=== PATIENT | female | born 1940 | race Caucasian/White ===

== ENCOUNTER 2020-12-26 08:43 | Emergency (ER) | payer MEDICARE, OTHER, SELFPAY ==
[2020-12-26 08:50] VITALS: BP 195/91; PULSE 74; RESP 18; TEMP 36.7; O2SAT 96; BMI 33.3
[2020-12-26 09:03] VITALS: BP 195/91; PULSE 66; RESP 18; TEMP 37.1; O2SAT 96
--- NOTE | 2020-12-26 09:10 | ED_ITS ---
HPI - Allergic Reaction General: Chief complaint: Allergic Reaction Stated complaint: SWELLING TO FACE Time Seen by Provider: 12/26/20 08:52 History of Present Illness: HPI narrative: Patient is an 80-year-old female comes to the ED with facial swelling. Patient says she woke up this morning and had swelling to her upper lip and left maxillary region. Patient says it is a little sore over left maxillary region of face where swelling that. She denies any bug bite, change medications, change in soaps or detergents. Endorses having some left upper dental pain around first molar that has been going on for over a week. Denies any fever, chills, shortness of breath, nausea/vomiting, abdominal pain, bladder or bowel symptoms. Associated symptoms: Deny abdominal pain, nausea or vomiting Review of Systems Const: Denies: fever(s), chills or fatigue Eyes: Denies: change in vision or eye discomfort ENMT: Reports: other (maxillary left facial swelling and pain.); Denies: throat pain, odynophagia, nasal discharge or nasal congestion Card: Denies: chest pain, palpitations, edema, swelling of feet/ankles, dyspnea on exertion or orthopnea Resp: Denies: dyspnea, productive cough or non-productive cough GI: Denies: abdominal pain, nausea, vomiting, diarrhea, constipation or hematochezia : Denies: flank pain, dysuria or hematuria Musc: Denies: neck pain, back pain or extremity swelling Skin/Breast: Reports: skin swelling (Left maxillary and upper lip mild swelling.); Denies: rash or new lesions Neuro: Denies: headache(s), numbness in extremities or weakness in extremities Physical Exam Const: COMMON NORMALS: no acute distress, patient oriented x3 and alert GENERAL APPEARANCE: cooperative and comfortable HENMT: COMMON NORMALS: normocephalic HEAD & SCALP: normocephalic FACE & SINUS: edema on the left maxilla (mild) and upper lip (mild) and Facial tenderness on exam of face and sinuses on the left maxilla MOUTH: Normal oral and palatal mucosa present TEETH & GINGIVA: Yes abnormal tooth and associated gingiva upper left first molar tender and with associated gingival edema and Yes caries (Upper left first molar has dental caries.) THROAT: posterior oropharynx normal and uvula midline Neck/C-Spine: COMMON NORMALS: supple GENERAL: Yes normal visual inspection Resp: COMMON NORMALS: normal respiratory effort, No retractions, No use of accessory muscles and clear to auscultation bilaterally AUSCULTATION: clear to auscultation bilaterally Cardio: COMMON NORMALS: regular rate, regular rhythm, S1 normal heart sound present, S2 normal heart sound present, No gallops present (Cardio), No clicks present (Cardio), No murmurs present (Cardio) and Peripheral pulses 2+ throughout RATE: regular rate RHYTHM: regular rhythm HEART SOUNDS: S1 normal heart sound present and S2 normal heart sound present PERIPHERAL PULSE S: Peripheral pulses 2+ throughout GI: COMMON NORMALS: Normal to inspection, nondistended, normoactive bowel sounds present, Soft to palpation, non-tender and no masses PALPATION: Yes Soft to palpation : COMMON NORMALS: Yes no CVA tenderness BLADDER/KIDNEY EXAM: Yes no CVA tenderness Back/Pelvis: COMMON NORMALS: no CVA tenderness Extremity: COMMON NORMALS: normal to inspection Neuro: COMMON NORMALS: patient oriented x3 and moves all extremities SENSORIUM/ORIENTATION: Yes alert Skin: GENERAL SKIN EXAM: dry skin Course Vital Signs: Vital signs: Vital Signs Temperature 98.7 F 12/26/20 09:03 Pulse Rate 67 12/26/20 09:31 Respiratory Rate 18 12/26/20 09:31 Blood Pressure 195/91 12/26/20 09:31 Pulse Oximetry 95 12/26/20 09:31 MDM - Allergic Reaction MDM Narrative: Medical decision making narrative: Patient is an 80-year-old female comes to the ED with left-sided facial swelling. Patient did state that she has been having some dental pain in the upper left molar region for the past week plus. Upon exam patient appears nontoxic and in no acute distress or pain. She has some left maxillary tenderness. She does have some dental decay on upper left first molar with associated gingival edema. Patient's dental caries and associated gingival edema are likely the cause of the facial swelling. Patient diagnosed with left facial swelling and pain due to dental caries. She was discharged home with a prescription for Medrol Dosepak for the swelling and clindamycin. She was told to contact dentist and get an appointment set up for further evaluation. Return ED precautions given. Patient understood agree with plan. Discharge Plan Discharge Patient Disposition: Home Clinical Impression: Pain due to dental caries, Left facial swelling Condition: Stable Prescriptions: New clindamycin HCl 150 mg capsule 300 mg PO QID 7 Days Qty: 56 RF: 0 Medrol (Quinten) 4 mg tablets,dose pack See Rx Instructions .ROUTE .COMPLEX Qty: 21 RF: 0 Discharge Orders: Discharge ED (Routine); Ordered 12/26/20 Ordered By: Akin Stokes Referrals: Kristi Steele MD [Primary Care Provider] - Discharge Diet: Regular Discharge Activity: Resume usual activity Patient Instructions: Dental Caries (ED) Activity Restrictions/Additional Instructions: Contact dentist office to set up an appointment for reevaluation. Take medications as prescribed. Return to the ER or your medical provider if condition worsens. Please read and understand discharge instructions. Thank you for choosing [facility] for your healthcare needs today. Please realize this is an emergency room and that we are providing you with a medical screening exam and this may not be complete and all inclusive of all the testing and or work up that you may need to determine your ailment or severity of your illness. It is very important that you follow up as instructed or that you return to the Emergency Department should you have concerns or if your condition changes or worsens in any way. Coding Level of Care Code ED Geodetic Surveyor Technologist for Jassong Fwd Exam Comprehensive
[2020-12-26 09:31] VITALS: BP 195/91; PULSE 67; RESP 18; O2SAT 95
== END 2020-12-26 09:36 | disposition home or self-care (01) ==
LOC: ER 09:31
PROVIDERS: Emergency Provider Physician Assistant; PCP Specialist
DX: K02.9 Dental caries, unspecified (principal); R60.9 Edema, unspecified
CPT/HCPCS: 99282

== ENCOUNTER → 2021-06-14 10:04 | Outpatient (BNVA) | payer MEDICARE, OTHER, SELFPAY | PROVIDERS: PCP Specialist; Visit Provider Internal Medicine Cardiovascular Disease | DX: R01.1 Cardiac murmur, unspecified (principal); R60.9 Edema, unspecified | CPT/HCPCS: 80048; 83735; 83880 ==

== ENCOUNTER → 2021-07-06 08:32 | Outpatient (BNVA) | payer MEDICARE, OTHER, SELFPAY | PROVIDERS: PCP Specialist; Visit Provider Internal Medicine Cardiovascular Disease | DX: I45.10 Unspecified right bundle-branch block (principal); I50.9 Heart failure, unspecified; M79.89 Other specified soft tissue disorders; I10 Essential (primary) hypertension | CPT/HCPCS: 80048; 83735; 83880 ==

== ENCOUNTER 2021-12-13 13:15 | Outpatient (CLI) | payer MEDICARE, OTHER, SELFPAY ==
[2021-12-13 14:00] LABS: Basophils # 0.1 10^3/uL (0.0-0.1); Basophils % 1.2 %; Eosinophils # 0.2 10^3/uL (0.0-0.8); Eosinophils % 2.8 %; Hematocrit 46.1 % (37.0-47.0); Hemoglobin 15.1 g/dL (11.5-15.3); Lymphocytes # 1.8 10^3/uL (0.8-4.8); Lymphocytes % 30.5 %; Mean Corpuscular HGB Conc 32.8 g/dL (30.0-36.0); Mean Corpuscular Hemoglobin 28.4 pg (28.0-34.0); Mean Corpuscular Volume 86.8 fl (81-99); Monocytes # 0.4 10^3/uL (0.2-0.9); Neutrophils # 3.51 10^3/uL (1.8-7.7); Neutrophils % 58.2 %; Nucleated Red Blood Cells % 0 %; Platelet Count 271 10^3/cmm (130-400); Red Blood Count 5.31 10^6/uL (4.1-5.3); Red Cell Distribution Width 13.7 % (12.1-15.1)
[2021-12-13 14:38] LABS: Alanine Aminotransferase 11 U/L (0-33); Albumin Level 4.2 g/dL (3.5-5.2); Alkaline Phosphatase 87 IU/L (35-105); Aspartate Amino Transferase 18 U/L (0-32); Blood Urea Nitrogen 14 mg/dL (8-23); Calcium 8.9 mg/dL (8.5-10.5); Carbon Dioxide 25 mmol/L (22-29); Chloride 104 mmol/L (98-107); Globulin 3.7 g/dL (1.3-4.6); Glucose 119 mg/dL (65-115); Magnesium 2.2 mg/dL (1.7-2.3); NT Pro B Type Natriuretic Pept 1576 pg/mL (0-450); Osmolality Calculated 294 mOsm/kg (285-295); Sodium 141 mmol/L (136-145); Total Bilirubin 0.7 mg/dL (0.15-1.2); Total Protein 7.9 g/dL (6.6-8.7)
== END 2021-12-13 13:16 | disposition home or self-care (01) ==
PROVIDERS: PCP Specialist; Visit Provider Internal Medicine Cardiovascular Disease
DX: I10 Essential (primary) hypertension (principal); I50.9 Heart failure, unspecified; M79.89 Other specified soft tissue disorders
CPT/HCPCS: 80053; 83735; 83880; 85025

== ENCOUNTER 2022-01-25 10:45 | Inpatient (IN) | payer MEDICARE, OTHER, SELFPAY ==
[2022-01-25] VITALS (42 sets, daily range): BP systolic 107–169; BP diastolic 59–86; PULSE 70–118; RESP 14–28; TEMP 36.6–37.1; O2SAT 93–96
[2022-01-25 12:53] LABS: Glucose Point of Care 118 mg/dL (70-110)
--- NOTE | 2022-01-25 13:01 | CTR_ITS ---
PROCEDURE INFORMATION: Exam: CT Abdomen And Pelvis Without Contrast Exam date and time: 01/25/2022 2:40 PM Age: 81 years old Clinical indication: Fever and nausea; Abdominal pain; Localized; Lower; Patient HX: History of melanoma; Additional info: Upper abd pain and recurrent n/v for serveral days TECHNIQUE: Imaging protocol: Computed tomography of the abdomen and pelvis without contrast. Radiation optimization: All CT scans at this facility use at least one of these dose optimization techniques: automated exposure control; mA and/or kV adjustment per patient size (includes targeted exams where dose is matched to clinical indication); or iterative reconstruction. COMPARISON: OT US abdomen limited 71625 03/15/2016 9:41 AM RADIATION DOSE METRICS: Total DLP (mGy-cm): 1243.8 FINDINGS: Liver: Normal. No evidence of mass. Gallbladder and bile ducts: Normal. No calcified stones. No ductal dilation. Pancreas: Normal. No ductal dilation. Spleen: Normal. No splenomegaly. Adrenal glands: Normal. No mass. Kidneys and ureters: Cortical scarring along the posterior interpolar cortex of the left kidney. No hydronephrosis. Stomach and bowel: Scattered colonic diverticula without findings of acute diverticulitis. No obstruction. No mucosal thickening. Appendix: No evidence of appendicitis. Intraperitoneal space: Unremarkable. No free air. No significant fluid collection. Vasculature: Unremarkable. No abdominal aortic aneurysm. Lymph nodes: Unremarkable. No enlarged lymph nodes. Urinary bladder: Inferior portion of the bladder is located below the pubococcygeal line. Otherwise, unremarkable. Reproductive: Hysterectomy. Bones/joints: No acute fracture. No aggressive osseous lesions. Soft tissues: Unremarkable. CT/CT abdomen pelvis wo con [id number] IMPRESSION: 1. No acute findings. No evidence of metastatic disease within the abdomen/pelvis. 2. Hysterectomy with imaging findings consistent with pelvic floor laxity and corresponding cystocele.
--- NOTE | 2022-01-25 13:01 | XR_ITS ---
WS: [id number] Portable AP upright chest, 01/25/2022 Clinical Data: ams Comparison: PA and lateral chest, 05/09/2021. Findings: No nodules, masses or effusions are seen. The heart is normal. The pulmonary vascularity is not increased. No pneumonia or pneumothorax is seen. The aortic arch and descending thoracic aorta s how mild tortuosity. Monitor leads are on the chest wall. XR/XR chest 1V portable [id number] Impression: Atherosclerosis.
--- NOTE | 2022-01-25 13:04 | ECG_ITS ---
[facility] Test Date: 2022-01-25 Pat Name: Tiffanie Rosas Department: Room: Gender: Female Banking Pin Adjuster: : 1940 Requested By: Chun Agarwal Order Number: [id number] Ramos MD: Mack Bradley M.D. Measurements Intervals [place] Rate: 72 P: 11 AR: 204 QRS: 90 QRSD: 145 T: 67 QT: 376 QTc: 413 Interpretive Statements SINUS RHYTHM RIGHT BUNDLE BRANCH BLOCK [120+ ms QRS DURATION, UPRIGHT V1, 40+ ms S IN I/aVL/V4/V5/V6] No previous ECG available for comparison Electronically Signed On 01-25-2022 17:54:58 CDT by Mack Bradley M.D. [id number]
--- NOTE | 2022-01-25 13:05 | W.ED.AMS ---
HPI - Altered Mental Status General: Chief Complaint: Altered Mental Status Stated Complaint: Vomiting Time Seen by Provider: 01/25/22 12:34 Source: patient and family (son) Mode of arrival: ambulatory Limitations: no limitations History of Present Illness: Patient's brought to the emergency department by her son. History is provided both by the son as well as the patient. He relates that she has been sick since approximately Sunday. He states that she has had repetitive vomiting when any attempt to eat or drink. He states that they both live on the same property but not in the same dwelling. States that she lives alone but has not been exposed to any infectious disease that he is aware. He relates his symptoms beginning after they ate at [employer]. She ate a chicken strip meal with fries and he ate a hamburger. She became sick afterwards. She denies any abdominal pain. She denies any other specific complaint at this time. Son does report that she has been less active and less interactive than usual. He is unaware of her having any fevers, falls or traumatic injuries etc. She does have a history of cardiovascular disease but she has denied any chest pain to us today and son reports that she is denied any chest pain symptoms to him. She is not any diarrhea. She is not any abdominal surgeries. She apparently was on Diflucan as well as topical antifungals and a course of Bactrim approximately a week ago for a topical skin fungal infection. complaint: weakness Timing confirmed by: family member Review of Systems Const: Denies: fever(s), chills or body aches Eyes: Denies: change in vision ENMT: Denies: throat pain, odynophagia or nasal congestion Card: Denies: chest pain, palpitations, irregular heart rhythm or syncope Resp: Denies: dyspnea, productive cough or non-productive cough GI: Reports: nausea and vomiting; Denies: abdominal pain, hematemesis, diarrhea or change in stool character : Denies: flank pain, difficulty voiding, dysuria or urinary frequency Musc: Reports: extremity swelling (Chronic); Denies: neck pain, back pain or extremity pain Skin/Breast: Reports: rash (Under breasts) Neuro: Denies: headache(s), numbness in extremities, weakness in extremities or Slurred speech present Endo: Denies: polyuria, polydipsia or tired all the time All/Imm: Denies: urticaria PFSH ED PFSH: Medical History CHF (congestive heart failure), NYHA class III Hypertension Leg swelling RBBB Social History Smoking and tobacco status: former smoker Physical Exam Narrative: The patient's alert and answers questions in a goal-directed fashion. She is cooperative. Appears stated age. Const: COMMON NORMALS: no acute distress and alert GENERAL APPEARANCE: comfortable NUTRITIONAL APPEARANCE: overweight ORIENTATION/CONSCIOUSNESS: Yes awake and Yes oriented to person HENMT: COMMON NORMALS: normocephalic, atraumatic, Normal nasal mucous membranes and turbinates present and moist oral mucous membranes HEAD & SCALP: normocephalic and atraumatic FACE & SINUS: normal facial exam NOSE: Normal nasal mucous membranes and turbinates present Eye: COMMON NORMALS: Equal, round and reactive pupils present, EOMs intact bilaterally and conjunctivae normal CONJUNCTIVA: Yes conjunctivae normal PUPIL: Yes Equal, round and reactive pupils present Neck/C-Spine: COMMON NORMALS: full ROM, no lymphadenopathy, supple and No carotid bruits Chest: COMMONS NORMALS: normal inspection of the chest and normal palpation of entire chest wall Resp: COMMON NORMALS: normal respiratory effort, No retractions, No use of accessory muscles and clear to auscultation bilaterally EFFORT & INSPECTION: Yes able to speak in complete sentences AUSCULTATION: clear to auscultation bilaterally Cardio: COMMON NORMALS: regular rate, regular rhythm, No murmurs present (Cardio) and Peripheral pulses 2+ throughout RATE: regular rate RHYTHM: regular rhythm PERIPHERAL PULSES: Peripheral pulses 2+ throughout GI: COMMON NORMALS: Normal to inspection, nondistended, normoactive bowel sounds present, Soft to palpation, no masses and no bruits PALPATION: Yes Soft to palpation, Yes Tenderness to palpation present (GI), No Guarding due to palpation present (GI) and No Rigid due to palpation Back/Pelvis: COMMON NORMALS: thoracic and lumbar spine normal to inspection, no thoracic nor lumbar tenderness and thoraco-lumbar ROM normal Extremity: COMMON NORMALS: normal to inspection, capillary refill normal, no joint enlargement and no calf tenderness NARRATIVE EXTREMITY EXAM: Bilateral pretibial edema 1+. Neuro: COMMON NORMALS: moves all extremities, no focal motor deficits, no sensory deficits noted and deep tendon reflexes 2+ bilaterally SENSORIUM/ORIENTATION: Yes alert and Yes oriented to person CRANIAL NERVES: Yes CN normal except as noted SPEECH: speech normal Psych: COMMON NORMALS: mental status grossly normal, Normal thought process present and cooperative THOUGHT PROCESS: Normal thought process present Course Reevaluation(s): Reevaluation #1: Patient does not display any focal findings on her neurologic examination to suggest central nervous system involvement least initially. We will going proceed with work-up to ensure no other ongoing medical conditions and reevaluate at that time. Time: 13:12 Consultations: Consultation #1: Discussed with Dr. Boateng who agreed to accept the patient for admission and additional evaluation and treatment. Time: 14:42 Vital Signs: Vital signs: Vital Signs Pulse Rate 73 01/25/22 14:10 Respiratory Rate 17 01/25/22 14:00 Pulse Oximetry 94 01/25/22 11:12 MDM - Altered Mental Status Medical Decision Making This patient presented with a history of repetitive vomiting over the past 5 to 7 days. Initial screening laboratories revealed her to have a significant elevation in her creatinine from 5.8 from baseline of 1.0 by review of prior records. She also has a mild hyperkalemia consistent with ELIANA without any acute EKG changes. She will require hydration, monitoring of fluid status, and additional imaging to ensure that there is no other intra-abdominal pathology at this time. Medical Records I reviewed the patient's medical records. Lab Data I reviewed the patient's lab results. : 01/25/22 12:50 01/25/22 12:50 Radiology Impressions Chest X-Ray 01/25/22 13:01 Impression: Atherosclerosis. Laboratory Results WBC 8.9 10^3/uL (4.0-10.0) 01/25/22 12:50 RBC 5.42 10^6/uL (4.1-5.3) H 01/25/22 12:50 Hgb 15.3 g/dL (11.5-15.3) 01/25/22 12:50 Hct 44.9 % (37.0-47.0) 01/25/22 12:50 MCV 82.8 fl (81-99) 01/25/22 12:50 MCH 28.2 pg (28.0-34.0) 01/25/22 12:50 MCHC 34.1 g/dL (30.0-36.0) 01/25/22 12:50 RDW 14.3 % (12.1-15.1) 01/25/22 12:50 Plt Count 264 10^3/cmm (130-400) 01/25/22 12:50 MPV 9.5 fL (7.4-10.4) 01/25/22 12:50 Neut % (Auto) 81.6 % 01/25/22 12:50 Lymph % (Auto) 4.6 % 01/25/22 12:50 [place] % (Auto) 8.3 % 01/25/22 12:50 Eos % (Auto) 3.6 % 01/25/22 12:50 Baso % (Auto) 0.2 % 01/25/22 12:50 Neut # (Auto) 7.25 10^3/uL (1.8-7.7) 01/25/22 12:50 Lymph # (Auto) 0.4 10^3/uL (0.8-4.8) L 01/25/22 12:50 [place] # (Auto) 0.7 10^3/uL (0.2-0.9) 01/25/22 12:50 Eos # (Auto) 0.3 10^3/uL (0.0-0.8) 01/25/22 12:50 Baso # (Auto) 0.0 10^3/uL (0.0-0.1) 01/25/22 12:50 Nucleated RBC % (auto) 0 % 01/25/22 12:50 Nucleated RBCs # 0.0 /100WBC 01/25/22 12:50 Sodium 126 mmol/L (136-145) L 01/25/22 12:50 Potassium 6.4 mmol/L (3.5-5.1) H 01/25/22 12:50 Chloride 89 mmol/L (98-107) L 01/25/22 12:50 Carbon Dioxide 21 mmol/L (22-29) L 01/25/22 12:50 Anion Gap 22.4 (5-19) H 01/25/22 12:50 BUN 67 mg/dL (8-23) H 01/25/22 12:50 Creatinine 5.8 mg/dL (0.5-0.9) H* 01/25/22 12:50 GFR Calculation Not Reportable 01/25/22 12:50 Glucose 117 mg/dL (65-115) H 01/25/22 12:50 POC Glucose 118 mg/dL (70-110) H 01/25/22 12:47 Calculated Osmolality 282 mOsm/kg (285-295) L 01/25/22 12:50 Calcium 9.2 mg/dL (8.5-10.5) 01/25/22 12:50 Total Bilirubin 0.4 mg/dL (0.15-1.2) 01/25/22 12:50 AST 13 U/L (0-32) 01/25/22 12:50 ALT 8 U/L (0-33) 01/25/22 12:50 Alkaline Phosphatase 102 IU/L (35-105) 01/25/22 12:50 Total Protein 8.1 g/dL (6.6-8.7) 01/25/22 12:50 Albumin 4.0 g/dL (3.5-5.2) 01/25/22 12:50 Globulin 4.1 g/dL (1.3-4.6) 01/25/22 12:50 Lipase 68 U/L (13-60) H 01/25/22 12:50 Urine Color Yellow (Yellow) 01/25/22 14:00 Urine Appearance Clear (CLEAR) 01/25/22 14:00 Urine pH 5 (5-7) 01/25/22 14:00 Ur Specific [place] 1.005 (1.005-1.030) 01/25/22 14:00 Urine Protein Neg (Negative) 01/25/22 14:00 Urine Glucose (UA) Norm (Normal) 01/25/22 14:00 Urine Ketones Negative (Negative) 01/25/22 14:00 Urine Blood Neg (Negative) 01/25/22 14:00 Urine Nitrate Negative (Negative) 01/25/22 14:00 Urine Bilirubin Neg (Negative) 01/25/22 14:00 Urine Urobilinogen Norm mg/dL (Negative) 01/25/22 14:00 Ur Leukocyte Esterase Negative (Negative) 01/25/22 14:00 EKG Data EKG 1: I personally reviewed and interpreted this EKG as follows: EKG interpretation time: 13:38 Interpretation: Resting EKG reveals a ventricular rate of 72 bpm. She has a normal CO interval as well as a normal QRS duration. QTc is also normal. She has an extreme leftward axis suggestive of a right bundle branch block. She has no acute ST-T wave changes at this time. Discharge Plan Discharge Patient Disposition: Admitted As Inpatient Clinical Impression: Acute kidney injury, Hyperkalemia Condition: Stable Coding Level of Care Code ED Leather Stripping Machine Operator for Candis Parra Exam Comprehensive
[2022-01-25 13:18] LABS: Basophils % 0.2 %; Eosinophils # 0.3 10^3/uL (0.0-0.8); Eosinophils % 3.6 %; Hematocrit 44.9 % (37.0-47.0); Hemoglobin 15.3 g/dL (11.5-15.3); Lymphocytes # 0.4 10^3/uL (0.8-4.8); Lymphocytes % 4.6 %; Mean Corpuscular HGB Conc 34.1 g/dL (30.0-36.0); Mean Corpuscular Hemoglobin 28.2 pg (28.0-34.0); Mean Corpuscular Volume 82.8 fl (81-99); Mean Platelet Volume 9.5 fL (7.4-10.4); Monocytes # 0.7 10^3/uL (0.2-0.9); Monocytes % 8.3 %; Neutrophils # 7.25 10^3/uL (1.8-7.7); Neutrophils % 81.6 %; Nucleated Red Blood Cells % 0 %; Platelet Count 264 10^3/cmm (130-400); Red Blood Count 5.42 10^6/uL (4.1-5.3); Red Cell Distribution Width 14.3 % (12.1-15.1); White Blood Count 8.9 10^3/uL (4.0-10.0)
[2022-01-25 13:33] LABS: Alanine Aminotransferase 8 U/L (0-33); Alkaline Phosphatase 102 IU/L (35-105); Anion Gap 22.4 (5-19); Aspartate Amino Transferase 13 U/L (0-32); Blood Urea Nitrogen 67 mg/dL (8-23); Calcium 9.2 mg/dL (8.5-10.5); Carbon Dioxide 21 mmol/L (22-29); Chloride 89 mmol/L (98-107); Globulin 4.1 g/dL (1.3-4.6); Glucose 117 mg/dL (65-115); Lipase 68 U/L (13-60); Osmolality Calculated 282 mOsm/kg (285-295); Potassium 6.4 mmol/L (3.5-5.1); Sodium 126 mmol/L (136-145); Total Bilirubin 0.4 mg/dL (0.15-1.2); Total Protein 8.1 g/dL (6.6-8.7)
[2022-01-25] MEDS: sodium chloride 0.9% 500 ML IV (13:38)
[2022-01-25 14:36] LABS: Add Urine Microscopic? NO; Charge for UA Resulting for Rev
[2022-01-25 14:46] LABS: Bilirubin Urine Neg (Negative); Blood Urine Neg (Negative); Glucose Urine UA Norm (Normal); Ketones Urine Negative (Negative); Leukocyte Esterase Urine Negative (Negative); Nitrate Urine Negative (Negative); Protein Urine Neg (Negative); Specific Gravity, Urine 1.005 (1.005-1.030); Urine Appearance Clear (CLEAR); Urine Color Yellow (Yellow); Urobilinogen Urine Norm (Negative); pH Urine 5 (5-7)
[2022-01-25] MEDS: calcium gluconate 0.9% NaCL 1 GM/50 ML PREMIX IV (14:49)
--- NOTE | 2022-01-25 15:00 | PC.NURSE ---
Pt was brought from ER by this nurse and continued her care. She is alert and orientated to self only and attempting to pull lines and tubes. Family is at bedside. Son took pants, shoes, socks and uderwear home.
--- NOTE | 2022-01-25 15:16 | PM.HP ---
Providers/Chief Complaint Primary Care Provider: Kristi Steele MD Chief Complaint: Vomiting History of Present Illness Tiffanie Rosas is a 81 year old female WITH pmh of HTN , CHF, came in with c/o not felling well since Sunday she is complaining of recurrent vomiting whenever she tries to eat or drink anything,symptoms started after she ate chicken strip meal with fries at [employer].She has also been lethargic as well as less responsive lately.She denies any fever,cough,chest pain,sob,abdominal,urinary discomfort, sick contact.Patient has h /o recent use of Bactrim for topical skin fungal infection. Pertinent Imaging studies done in ER : Xray chest : No acute findings C.T Abdomen and pelvis without contrast:No hydronephrosis. EKG: SR,RBBB Pertinent Labs : WBC : 8.9 H&H : 15/44 , PLT l 264 , Na: 126 , k: 6.4 ,BUN/SCR : 67/5.8 , HCO3: 21 A, RBS:118 , UA: Clean Review of Systems General: Reports: 10 or more systems reviewed and unremarkable except in HPI and below Const: Denies: fever(s), chills, body aches, change in appetite or diaphoresis Card: Denies: palpitations, edema, swelling of feet/ankles, dyspnea on exertion, orthopnea or leg pain with exertion Resp: Denies: dyspnea, productive cough, wheezing or pain on inspiration GI: Denies: abdominal pain, nausea, vomiting, diarrhea or constipation : Denies: flank pain Musc: Denies: back pain, extremity pain or extremity swelling Neuro: Denies: headache(s), difficulty walking or confusion Medications/Allergies Home Medications Medication Instructions Recorded Confirmed Last Taken Type aspirin 325 mg tablet 325 mg PO DAILY PRN 09/12/21 01/25/22 Unknown History metoprolol tartrate 25 mg tablet 25 mg PO BID #60 tab 09/12/21 01/25/22 Unknown Rx furosemide 80 mg tablet 80 mg PO DAILY #90 tab 12/14/21 01/25/22 Unknown Rx lisinopril 40 mg tablet 40 mg PO DAILY #90 tab 12/14/21 01/25/22 Unknown Rx metolazone 2.5 mg tablet 2.5 mg PO Q48H PRN #30 tab 12/14/21 01/25/22 Unknown Rx potassium chloride 10 mEq 20 meq PO DAILY #180 cap 12/14/21 01/25/22 Unknown Rx capsule,extended release fluconazole 150 mg tablet 150 mg PO DAILY 01/25/22 01/25/22 Unknown History magnesium 30 mg tablet 30 mg PO DAILY 01/25/22 01/25/22 Unknown History nystatin 100,000 unit/gram topical See Rx Instructions .ROUTE .COMPLEX 01/25/22 01/25/22 Unknown History powder (Nystop) tumeric 100 mg-pooja 150 mg-olive 1 cap PO DAILY 01/25/22 01/25/22 Unknown History 50 mg-oreg 150 mg-caprylate capsule Allergies Allergy/AdvReac Type Severity Reaction Status Date / Time No Known Allergies Allergy Verified 01/25/22 13:53 PFSH Acute PFSH: Medical History CHF (congestive heart failure), NYHA class III Hypertension Leg swelling RBBB Social History Smoking and tobacco status: former smoker Vitals/I&O/Wt Last Vital Signs Pulse 78 01/25/22 15:00 Resp 17 01/25/22 15:00 Pulse Ox 94 01/25/22 11:12 Physical Exam Narrative: Alert ,awake not in acute distress. HENMT: COMMON NORMALS: normocephalic and atraumatic HEAD & SCALP: normocephalic and atraumatic Resp: COMMON NORMALS: clear to auscultation bilaterally EFFORT & INSPECTION: Yes symmetric chest movement AUSCULTATION: clear to auscultation bilaterally Cardio: COMMON NORMALS: regular rate, regular rhythm, S1 normal heart sound present, S2 normal heart sound present, No gallops present (Cardio), No murmurs present (Cardio), No rub (Cardio) and Peripheral pulses 2+ throughout RATE: regular rate RHYTHM: regular rhythm HEART SOUNDS: S1 normal heart sound present and S2 normal heart sound present PERIPHERAL PULSES: Peripheral pulses 2+ throughout GI: COMMON NORMALS: Normal to inspection, nondistended, normoactive bowel sounds present, Soft to palpation, non-tender, No hepatosplenomegaly present and no masses AUSCULTATION: Yes normoactive bowel sounds PALPATION: Yes Soft to palpation and Yes No hepatosplenomegaly present RECTAL EXAM: deferred Extremity: COMMON NORMALS: no clubbing, cyanosis or edema and no pedal edema Data : 01/25/22 12:50 01/25/22 12:50 A&P Assessment and plan (1) Acute kidney injury: Status: Acute (2) Hyperkalemia: Status: Acute (3) CHF (congestive heart failure), NYHA class III: Status: Acute Qualifiers: Congestive heart failure type: unspecified Qualified Code(s): I50.9 - Heart failure, unspecified (4) Hypertension: Status: Acute Qualifiers: Hypertension type: primary hypertension Qualified Code(s): I10 - Essential (primary) hypertension (5) Hyponatremia: Status: Acute Plan 81 year old female WITH pmh of HTN , CHF, came in with c/o not felling well since Sunday she is complaining of recurrent vomiting whenever she tries to eat or drink anything,symptoms started after she ate chicken strip meal with fries at [employer].She has also been lethargic as well as less responsive lately.She denies any fever,cough,chest pain,sob,abdominal,urinary discomfort, sick contact. Assessment : Ac Metabolic Encephalopathy likely 2/2 Hponatremia, ELIANA, Hyperkalemia ELIANA ON CKD :Likely Prerenal ELIANA Hyperkalemia Hypovolemic Hyponatremia CHF ( Compensated ) HTN PLan : C.T Abdomen and pelvis without contrast:No hydronephrosis. Reanl U/S Random Urine sodium Random Urine Cr Random urine Protien Fena Fe:Urea UPCR 2D Echo Continue I.V Hydration with NS @100CC/HR Monitor Intake output charting Monitor BMP Avoid Nephrotoxics Continue to hold lasix, metolazone, lisinopril, oral pottasium ( home medications) Patient has received Hyperkalemia cocktail, monitor repaet Serum K ,continue telemetry monitoring Monitor serum Sodium Code Status :Full code DVT PPX: On Sc Heparin Attestations Medical Necessity Statement*: Patient needs to be in hospital for the management of EILANA, Hyperkalemia.Anticipated LOS Greater then 2 midnights. Time Spent in Patient Care: Greater than 35 minutes (>than 50% of time spent in counselling and/or direct pt care on unit). 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
[2022-01-25] MEDS: sodium polystyrene sulfonate 15 gm/60 mL Btl PO ×2 (15:25→21:13)
[2022-01-25] MEDS: dextrose 50% syringe 50 mL IVP (15:26)
[2022-01-25] MEDS: insulin regular-human 100 units/1 mL 10 UNIT IVP (15:26)
[2022-01-25] MEDS: heparin 5,000 unit/mL INJ 1 mL 5000 UNIT SUBCUT (15:26)
[2022-01-25] MEDS: sodium chloride 0.9% 1,000 ML 100 ML IV (15:27)
--- NOTE | 2022-01-25 16:16 | USCV_ITS ---
Tiffanie Rosas Age: 81 Gender: F : 1940 Exam Date: 01/25/2022 16:51 Ordering Phys: Houston Boateng MD Technologist: Syed Tinsley Exam Location: [facility] [place] Indication: short of breath BP: 98 / 49 HR: 75 Rhythm: Sinus Technical Quality: Technically difficult study MEASUREMENTS (Male / Female) Normal Values 2D ECHO LV Diastolic Diameter PLAX 2.3 cm 4.2 - 5.9 / 3.9 - 5.3 cm LV Systolic Diameter PLAX 1.8 cm IVS Diastolic Thickness 1.2 cm 0.6 - 1.0 / 0.6 - 0.9 cm IVS Systolic Thickness 1.4 cm LVPW Diastolic Thickness 1.2 cm 0.6 - 1.0 / 0.6 - 0.9 cm LVPW Systolic Thickness 1.2 cm LVOT Diameter 2.0 cm LV Ejection Fraction 2D Teich 40.9 % LA Diameter 4.0 cm M-MODE Aortic Annulus Diameter 2.4 cm LA Ao Ratio MM 2.0 MV E Point Septal Separation 0.9 cm DOPPLER AV Peak Velocity 476.8 cm/s LVOT Peak Velocity 138.0 cm/s AV Area Cont Eq vti 1.0 cm squared AV Area Cont Eq pk 0.9 cm squared MV Area PHT 5.0 cm squared Mitral E to A Ratio 0.6 MV E' Velocity 32.5 cm/s Mitral E to MV E' Ratio 10.9 Mitral E to LV E' Lateral Ratio 10.5 Mitral E to LV E' Septal Ratio 11.3 TR Peak Velocity 187.0 cm/s TR Peak Gradient 14.0 mmHg TV Peak E Velocity 82.0 cm/s Right Atrial Pressure 3.0 mmHg Pulmonary Artery Systolic Pressu 17.0 mmHg PV Peak Velocity 139.0 cm/s FINDINGS Left Ventricle Technically limited quality echocardiogram because of poor ultrasonic windows. Grossly LV systolic function is normal. No regional wall abnormalities. Grade 1 diastolic dysfunction Right Ventricle The right ventricle is grossly normal in size and function Right Atrium Not well-visualized Left Atrium The left atrium is normal in size. Mitral Valve Not well-visualized. Aortic Valve Aortic valve is not well visualized. Moderate to severe aortic stenosis is seen. By continuity equation, aortic valve area of 1.1 cm2 and mean gradient of 34 mmHg. Tricuspid Valve Not well-visualized. Trace tricuspid regurgitation. Insufficient TR jet to calculate RVSP Pulmonic Valve Not well-visualized Pericardium Grossly normal Aorta Grossly normal IVC CONCLUSIONS Technically very limited quality echocardiogram because of poor ultrasonic windows. Cardiac structures are not well visualized. Grossly LV systolic function is normal. Grade 1 diastolic dysfunction. Aortic valve is not well visualized. Moderate to severe aortic stenosis is seen. By continuity equation, aortic valve area of 1.1 cm2 and mean gradient of 34 mmHg. No comparison studies are available Mack Bradley MD (Electronically Signed) Final Date: 26 January 2022 09:43 S
--- NOTE | 2022-01-25 17:00 | PC.NURSE ---
Pt has pulled out zurita and IV. Dr. Boateng aware. New order for 1:1 sitter.
[2022-01-25 18:44] LABS: Creatinine Urine, Random 62 mg/dL (28-217)
[2022-01-25 18:48] LABS: Urine Protein Random 14 mg/dL; Urine Random Sodium 81 mmol/L
[2022-01-25 18:56] LABS: Add Urine Microscopic? YES; Bacteria Urine 1+ /hpf; Bilirubin Urine Neg (Negative); Blood Urine 3+ (Negative); Glucose Urine UA Norm (Normal); Ketones Urine Negative (Negative); Leukocyte Esterase Urine Negative (Negative); Nitrate Urine Negative (Negative); Protein Urine Neg (Negative); RBC Urine 25-40 /hpf (0-2); Squamous Epithelial Cell Urine 0-4 /hpf (0-5); Urine Appearance Clear (CLEAR); Urine Color Yellow (Yellow); Urobilinogen Urine Norm (Negative); pH Urine 5 (5-7)
[2022-01-25 18:57] LABS: Add Urine Culture? Yes
[2022-01-25 19:51] LABS: Anion Gap 23.6 (5-19); Blood Urea Nitrogen 64 mg/dL (8-23); Calcium 9.5 mg/dL (8.5-10.5); Carbon Dioxide 18 mmol/L (22-29); Chloride 95 mmol/L (98-107); Glucose 86 mg/dL (65-115); Osmolality Calculated 290 mOsm/kg (285-295); Potassium 5.6 mmol/L (3.5-5.1); Sodium 131 mmol/L (136-145)
[2022-01-25] MEDS: acetaminophen 325 mg Tablet 650 MG PO (21:13)
[2022-01-26] VITALS (14 sets, daily range): BP systolic 118–131; BP diastolic 56–79; PULSE 60–75; RESP 17–27; TEMP 36.6–37.2; O2SAT 93–96
[2022-01-26 02:37] LABS: Glucose Point of Care 80 mg/dL (70-110)
[2022-01-26 02:42] LABS: Basophils % 0.2 %; Eosinophils # 0.5 10^3/uL (0.0-0.8); Eosinophils % 9.9 %; Hematocrit 39.8 % (37.0-47.0); Hemoglobin 13.5 g/dL (11.5-15.3); Lymphocytes # 0.7 10^3/uL (0.8-4.8); Lymphocytes % 13.3 %; Mean Corpuscular HGB Conc 33.9 g/dL (30.0-36.0); Mean Corpuscular Hemoglobin 27.8 pg (28.0-34.0); Mean Corpuscular Volume 82.1 fl (81-99); Mean Platelet Volume 9.4 fL (7.4-10.4); Monocytes # 0.5 10^3/uL (0.2-0.9); Neutrophils # 3.41 10^3/uL (1.8-7.7); Neutrophils % 66.4 %; Nucleated Red Blood Cells % 0 %; Platelet Count 208 10^3/cmm (130-400); Red Blood Count 4.85 10^6/uL (4.1-5.3); Red Cell Distribution Width 14.4 % (12.1-15.1); White Blood Count 5.1 10^3/uL (4.0-10.0)
[2022-01-26] MEDS: sodium chloride 0.9% 1,000 ML 100 ML IV (02:57)
[2022-01-26] MEDS: heparin 5,000 unit/mL INJ 1 mL 5000 UNIT SUBCUT ×2 (02:58→15:19)
[2022-01-26 03:05] LABS: Alanine Aminotransferase 8 U/L (0-33); Alkaline Phosphatase 81 IU/L (35-105); Anion Gap 19.3 (5-19); Aspartate Amino Transferase 12 U/L (0-32); Blood Urea Nitrogen 62 mg/dL (8-23); Calcium 8.6 mg/dL (8.5-10.5); Carbon Dioxide 20 mmol/L (22-29); Chloride 102 mmol/L (98-107); Globulin 3.3 g/dL (1.3-4.6); Glucose 83 mg/dL (65-115); Magnesium 2.2 mg/dL (1.7-2.3); Osmolality Calculated 299 mOsm/kg (285-295); Phosphorus 5.2 mg/dL (2.5-4.5); Potassium 5.3 mmol/L (3.5-5.1); Sodium 136 mmol/L (136-145); Total Bilirubin 0.2 mg/dL (0.15-1.2); Total Protein 6.3 g/dL (6.6-8.7)
[2022-01-26 03:11] LABS: INR 1.24 (0.8-1.2)
[2022-01-26 03:30] LABS: NT Pro B Type Natriuretic Pept 1033 pg/mL (0-450)
[2022-01-26] MEDS: sodium polystyrene sulfonate 15 gm/60 mL Btl PO (08:40)
--- NOTE | 2022-01-26 10:16 | P.PN_ITS ---
Subjective Subjective: Patient was seen and examined this morning, she was alert,awake, was hungry,wanted to eat. Bun,scr,serum sodium,hyperkalemia is improving, urine output is good.No other acute events. Her other vitals and Labs have reviewed. Medications: Medication Review Details: Generic Name Dose Route Start Last Admin Trade Name Sabine PRN Reason Stop Dose Admin Acetaminophen 650 mg 01/25/22 15:02 01/25/22 21:13 Acetaminophen 32 5 Mg Tablet PO 650 mg Q6H PRN Administration Mild/Mod Pain Or Temp >/= 101 Heparin Sodium (Po rcine) 5,000 unit 01/25/22 15:15 01/26/22 02:58 Heparin 5,000 Un it/Ml Inj 1 Ml SUBCUT 5,000 unit Q12H EMRE Administration Sodium Chloride 1,000 mls @ 125 m ls/hr 01/25/22 15:15 01/26/22 07:54 Sodium Chloride 0.9% IV 125 mls/hr .Q8H EMRE Infusion Sodium Polystyrene Sulfonate 15 gm 01/25/22 15:10 01/26/22 08:40 Sodium Polystyre ne Sulfonate 15 Gm /60 Ml Btl PO 15 gm TID EMRE Administration Vitals/I&O/Wt Last Vital Signs Temp 98.9 F 01/26/22 08:20 Pulse 68 01/26/22 08:20 Resp 26 H 01/26/22 08:20 BP 123/65 01/26/22 08:20 Pulse Ox 95 01/26/22 08:20 01/25/22 01/26/22 01/26/22 22:59 06:59 14:59 Intake Total 550 / 550 1000 / 1550 735 / 735 Output Total 775 / 775 400 / 1175 450 / 450 Balance -225 / -225 600 / 375 285 / 285 Weight last 48 hrs Weight 98.475 kg Weight 96.978 kg Physical Exam Narrative: Alert ,awake not in acute distress. HENMT: COMMON NORMALS: normocephalic and atraumatic HEAD & SCALP: normocephalic and atraumatic Resp: COMMON NORMALS: clear to auscultation bilaterally EFFORT & INSPECTI ON: Yes symmetric chest movement AUSCULTATION: clear to auscultation bilaterally Cardio: COMMON NORMALS: regular rate, regular rhythm, S1 normal heart sound present, S2 normal heart sound present, No gallops present (Cardio), No murmurs present (Cardio), No rub (Cardio) and Peripheral pulses 2+ throughout RATE: regular rate RHYTHM: regular rhythm HEART SOUNDS: S1 normal heart sound present and S2 normal heart sound present PERIPHERAL PULSES: Peripheral pulses 2+ throughout GI: COMMON NORMALS: Normal to inspection, nondistended, normoactive bowel sounds present, Soft to palpation, non-tender, No hepatosplenomegaly present and no masses AUSCULTATION: Yes normoactive bowel sounds PALPATION: Yes Soft to palpation and Yes No hepatosplenomegaly present RECTAL EXAM: deferred Extremity: COMMON NORMALS: no clubbing, cyanosis or edema and no pedal edema Data : 01/26/22 01:23 01/26/22 01:23 A&P Assessment and plan (1) Acute kidney injury: Status: Acute (2) Hyperkalemia: Status: Acute (3) CHF (congestive heart failure), NYHA class III: Status: Acute Qualifiers: Congestive heart failure type: unspecified Qualified Code(s): I50.9 - Heart failure, unspecified (4) Hypertension: Status: Acute Qualifiers: Hypertension type: primary hypertension Qualified Code(s): I10 - Essential (primary) hypertension (5) Hyponatremia: Status: Acute Plan 81 year old female WITH pmh of HTN , CHF, came in with c/o not felling well since Sunday she is complaining of recurrent vomiting whenever she tries to eat or drink anything,symptoms started after she ate chicken strip meal with fr ies at [employer].She has also been lethargic as well as less responsive lately.She denies any fever,cough,chest pain,sob,abdominal,urinary discomfort, sick contact. Assessment : Ac Metabolic Encephalopathy likely 2/2 Hponatremia, ELIANA, Hyperkalemia ELIANA ON CKD :Likely Prerenal ELIANA Hyperkalemia Hypovolemic Hyponatremia CHF ( Compensated ) HTN Moderate to severe aortic Stenosis PLan : C.T Abdomen and pelvis without contrast:No hydronephrosis. Reanl U/S: Random Urine sodium: 81 Random Urine Cr : 62 Random urine Protien : 14 Fena : 6 % is in line with Post renal, but result can be complicated with lasix use. Fe:Urea UPCR: 2D Echo : Technically very limited quality echocardiogram. Grossly LV systolic function is normal. Grade 1 diastolic dysfunction.Aortic valve is not well visualized.Moderate to severe aortic ?stenosis is seen. Aortic valve area of 1.1 cm2 and mean gradient of 34 mmHg. Continue I.V Hydration with NS @100CC/HR Monitor Intake output charting Monitor BMP Avoid Nephrotoxics Continue to hold lasix, metolazone, lisinopril, oral pottasium ( home medications) Patient has received Hyperkalemia cocktail, monitor repaet Serum K ,continue telemetry monitoring Monitor serum Sodium Code Status :Full code DVT PPX: On Sc Heparin Attestations Medical Necessity Statement*: Patient needs to be in hospital for the management of ELIANA. Time Spent in Patient Care: Greater than 35 minutes (>than 50% of time spent in counselling and/or direct pt care on unit) . Coding Level of Care Code Acute Frame Operator for [facility] Fwd Exam Detailed Diagnoses Acute kidney injury N17.9 Hyperkalemia E87.5 CHF (congestive heart failure), NYHA class III I50.9 Congestive heart failure type: unspecified Hypertension I10 Hypertension type: primary hypertension Hyponatremia E87.1
--- NOTE | 2022-01-26 11:20 | PC.NURSE ---
Family sitting: Family extensively educated on patient condition and need for one on one sitter. Family, son, indicated he would be able to stay with patient this shift for patent safety. Son agrees that this is the the most reasonable arrangement to best meet patient's needs. Patent resting in bed at this time. BP 101/56 HR 68 SR, O2 95 RA.
[2022-01-26] MEDS: sodium chloride 0.9% 1,000 ML 125 ML IV ×2 (11:59→20:54)
--- NOTE | 2022-01-26 15:36 | US_ITS ---
WS: [id number] RENAL ULTRASOUND HISTORY: ELIANA COMPARISON: None available. TECHNIQUE: 2-D and color Doppler imaging of the kidney submitted. Quality limited by body habitus. Right kidney: 11.0 cm x 4.4 cm x 5.9 cm. Normal echogenicity with no hydronephrosis or mass. Left kidney: 10.8 cm x 5.2 cm x 5.3 cm. Normal echogenicity with no hydronephrosis or mass. Aorta: Not visualized. Urinary Bladder: Not visualized. US/US renal BI* [id number] IMPRESSION: 1. Quality is limited by body habitus. No hydronephrosis. 2. No mass identified. Small renal mass would be difficult to visualize.
[2022-01-26] MEDS: nystatin cream 30 gm 1 APPLIC TOPICAL ×2 (17:06→17:14)
--- NOTE | 2022-01-26 19:19 | PC.NURSE ---
Confusion: Patient confusion increased approximately 1745. Patient refused evening meal stating I have already eaten my dinner. patient would not consume any of meal. At approximately 1820 patient became agitated and pulled off cardiac monitoring, blood pressure cuff, and gown and attempted to get out of bed stating, I am going home. Patient easily redirected back to bed and has since rested comfortably in bed watching TV with following vitals: HR 75 SR, O2 96% RA, BP 122/55.
[2022-01-27] VITALS (16 sets, daily range): BP systolic 110–132; BP diastolic 49–62; PULSE 53–82; RESP 20–25; TEMP 36.8–37.1; O2SAT 90–97; BMI 34.4
[2022-01-27] MEDS: heparin 5,000 unit/mL INJ 1 mL 5000 UNIT SUBCUT (02:20)
[2022-01-27 05:52] LABS: Basophils % 0.3 %; Eosinophils # 0.6 10^3/uL (0.0-0.8); Eosinophils % 10.2 %; Hemoglobin 13.4 g/dL (11.5-15.3); Lymphocytes # 1.7 10^3/uL (0.8-4.8); Lymphocytes % 26.6 %; Mean Corpuscular HGB Conc 34.4 g/dL (30.0-36.0); Mean Corpuscular Hemoglobin 28.6 pg (28.0-34.0); Mean Corpuscular Volume 83.2 fl (81-99); Monocytes # 0.5 10^3/uL (0.2-0.9); Monocytes % 7.3 %; Neutrophils # 3.42 10^3/uL (1.8-7.7); Neutrophils % 54.6 %; Nucleated Red Blood Cells % 0 %; Platelet Count 194 10^3/cmm (130-400); Red Blood Count 4.69 10^6/uL (4.1-5.3); Red Cell Distribution Width 14.5 % (12.1-15.1); White Blood Count 6.3 10^3/uL (4.0-10.0)
[2022-01-27] MEDS: sodium chloride 0.9% 1,000 ML 125 ML IV (06:00)
[2022-01-27 06:12] LABS: Alanine Aminotransferase 9 U/L (0-33); Albumin Level 2.8 g/dL (3.5-5.2); Alkaline Phosphatase 80 IU/L (35-105); Anion Gap 14.3 (5-19); Aspartate Amino Transferase 13 U/L (0-32); Blood Urea Nitrogen 43 mg/dL (8-23); Carbon Dioxide 22 mmol/L (22-29); Chloride 104 mmol/L (98-107); Globulin 3.3 g/dL (1.3-4.6); Glucose 84 mg/dL (65-115); Osmolality Calculated 292 mOsm/kg (285-295); Potassium 4.3 mmol/L (3.5-5.1); Sodium 136 mmol/L (136-145); Total Bilirubin 0.2 mg/dL (0.15-1.2); Total Protein 6.1 g/dL (6.6-8.7)
--- NOTE | 2022-01-27 09:05 | P.DS_ITS ---
Discharge Providers Date of Admission: 01/25/22 15:02 Date of Discharge: January 27, 2022 Attending Provider at Admission: Houston Boateng MD Attending Provider at Discharge: Houston Boateng MD Primary Care Provider: Kristi Steele MD Diagnoses at Discharge Discharge Diagnosis (1) Acute kidney injury: Status: Acute (2) Hyperkalemia: Status: Resolved (3) CHF (congestive heart failure), NYHA class III: Status: Acute Qualifiers: Congestive heart failure type: unspecified Qualified Code(s): I50.9 - Heart failure, unspecified (4) Hypertension: Status: Acute Qualifiers: Hypertension type: primary hypertension Qualified Code(s): I10 - Essential (primary) hypertension (5) Hyponatremia: Reason for Visit Reason for Visit: Vomiting Hospital Course Hospital Course HPI: Tiffanie Rosas is a 81 year old female WITH pmh of HTN , CHF, came in with c/o not felling well since Sunday she is complaining of recurrent vomiting whenever she tries to eat or drink anything,symptoms started after she ate chicken strip meal with fries at [employer].She has also been lethargic as well as less responsive lately.She denies any fever,cough,chest pain,sob,abdominal,urinary discomfort, sick contact.Patient has h /o recent use of Bactrim for topical skin fungal infection. Pertinent Imaging studies done in ER : Xray chest :? No acute findings C.T Abdomen and pelvis without contrast:No hydronephrosis. EKG: SR,RBBB Pertinent Labs : WBC : 8.9 H&H : 15/44 , PLT l 264 , Na: 126 , k: 6.4 ,BUN/SCR : 67/5.8 , HCO3: 21 A, RBS:118 , UA: Clean Hospital Course : Patient was admitted for the management of Ac Metabolic Encephalopathy likely 2/2 Hponatremia, ELIANA, Hyperkalemia ELIANA ON CKD :Likely Prerenal ELIANA,Hyperkalemia,Hypovolemic Hyponatremia,CHF? ( Compensated ), HTN. C.T Abdomen and pelvis without contrast:No hydronephrosis. Reanl U/S:?Quality is limited by body habitus. No hydronephrosis. No mass identified. Random Urine sodium: 81, Random Urine Cr : 62 ,Random urine Protien : 14 Fena : 6 % is in line with Post renal, but result can be complicated with lasix use.Fe:Urea could be done.2D Echo :?Technically very limited quality echocardiogram. Grossly LV systolic function is normal. Grade 1 diastolic dysfunction.Aortic valve is not well visualized.Moderate to severe aortic ?stenosis is seen. Aortic valve area of 1.1 cm2 and mean gradient of 34 mmHg. She was kept on I.V Hydration. Intake output charting, BMP was monitored,Nephrotoxics were avoided, lasix, metolazone, lisinopril, oral pottasium ( home medications) was kept on hold during hospital stay as well as on discharge,Patient received Hyperkalemia cocktail, Serum K , and sodium was monitored , she was kept on telemetry monitoring.She responded well to above medical management her Kidney function was improving, SCR was trending down, hyperkalemia was resolved, her mentation was at her baseline,he was discharged is stable condition to home.She was asked to keep her well hydrated. She was also asked to follow with repeat BMP in a week and see cardiology as well as pcp as outpatient.She overall responded well to above medical management and was discharged home in stable condition. Physical Exam Narrative: Alert ,awake not in acute distress. Const: COMMON NORMALS: patient oriented x3 HENMT: COMMON NORMALS: normocephalic and atraumatic HEAD & SCALP: normocephalic and atraumatic Resp: COMMON NORMALS: clear to auscultation bilaterally EFFORT & INSPECTION: Yes symmetric chest movement AUSCULTATION: clear to auscultation bilaterally Cardio: COMMON NORMALS: regular rate, regular rhythm, S1 normal heart sound present, S2 normal heart sound present, No gallops present (Cardio), No murmurs present (Cardio), No rub (Cardio) and Peripheral pulses 2+ throughout RATE: regular rate RHYTHM: regular rhythm HEART SOUNDS: S1 normal heart sound present and S2 normal heart sound present PERIPHERAL PULSES: Peripheral pulses 2+ throughout GI: COMMON NORMALS: Normal to inspection, nondistended, normoactive bowel sounds present, Soft to palpation, non-tender, No hepatosplenomegaly present and no masses AUSCULTATION: Yes normoactive bowel sounds PALPATION: Yes Soft to palpation and Yes No hepatosplenomegaly present RECTAL EXAM: deferred Extremity: COMMON NORMALS: no clubbing, cyanosis or edema and no pedal edema Neuro: COMMON NORMALS: patient oriented x3 Urinary Catheter Management: Brady: Cath Placed During This Visit: no Reason for Continuing Indwelling Catheter: Accurate Measurement of Urinary Output in Critically Ill Patients Discharge Data Studies Completed and Pending Completed Studies During Hospitalization Category Date Time Status CT abdomen pelvis wo con [id number] Urgent Cat Scan 01/25/22 13:01 Completed XR chest 1V portable [id number] Urgent Exams 01/25/22 13:01 Completed US echo complete [CV. echo complete* [id number]] Routine Ultrasound 01/25/22 16:16 Completed US renal BI* [id number] Urgent Ultrasound 01/26/22 15:36 Completed Pending at discharge Category Date Time Status Complete Blood Count w/Auto AM LABS Lab 01/28/22 04:00 Ordered Comprehensive Metabolic Panel AM LABS Lab 01/28/22 04:00 Ordered Radiology Impressions Abdomen/Pelvis CT 01/25/22 13:01 IMPRESSION: 1. No acute findings. No evidence of metastatic disease within the abdomen/pelvis. 2. Hysterectomy with imaging findings consistent with pelvic floor laxity and corresponding cystocele. Chest X-Ray 01/25/22 13:01 Impression: Atherosclerosis. Renal Ultrasound 01/26/22 15:36 IMPRESSION: 1. Quality is limited by body habitus. No hydronephrosis. 2. No mass identified. Small renal mass would be difficult to visualize. Laboratory Results WBC 6.3 10^3/uL (4.0-10.0) 01/27/22 05:42 RBC 4.69 10^6/uL (4.1-5.3) 01/27/22 05:42 Hgb 13.4 g/dL (11.5-15.3) 01/27/22 05:42 Hct 39.0 % (37.0-47.0) 01/27/22 05:42 MCV 83.2 fl (81-99) 01/27/22 05:42 MCH 28.6 pg (28.0-34.0) 01/27/22 05:42 MCHC 34.4 g/dL (30.0-36.0) 01/27/22 05:42 RDW 14.5 % (12.1-15.1) 01/27/22 05:42 Plt Count 194 10^3/cmm (130-400) 01/27/22 05:42 MPV 9.0 fL (7.4-10.4) 01/27/22 05:42 Neut % (Auto) 54.6 % 01/27/22 05:42 Lymph % (Auto) 26.6 % 01/27/22 05:42 [place] % (Auto) 7.3 % 01/27/22 05:42 Eos % (Auto) 10.2 % 01/27/22 05:42 Baso % (Auto) 0.3 % 01/27/22 05:42 Neut # (Auto) 3.42 10^3/uL (1.8-7.7) 01/27/22 05:42 Lymph # (Auto) 1.7 10^3/uL (0.8-4.8) 01/27/22 05:42 [place] # (Auto) 0.5 10^3/uL (0.2-0.9) 01/27/22 05:42 Eos # (Auto) 0.6 10^3/uL (0.0-0.8) 01/27/22 05:42 Baso # (Auto) 0.0 10^3/uL (0.0-0.1) 01/27/22 05:42 Nucleated RBC % (auto) 0 % 01/27/22 05:42 Nucleated RBCs # 0.0 /100WBC 01/27/22 05:42 PT 16.00 SECONDS (12.1-14.9) H 01/26/22 01:23 INR 1.24 (0.8-1.2) H 01/26/22 01:23 Sodium 136 mmol/L (136-145) 01/27/22 05:42 Potassium 4.3 mmol/L (3.5-5.1) 01/27/22 05:42 Chloride 104 mmol/L (98-107) 01/27/22 05:42 Carbon Dioxide 22 mmol/L (22-29) 01/27/22 05:42 Anion Gap 14.3 (5-19) 01/27/22 05:42 BUN 43 mg/dL (8-23) H 01/27/22 05:42 Creatinine 2.3 mg/dL (0.5-0.9) H 01/27/22 05:42 GFR Calculation Not Reportable 01/27/22 05:42 Glucose 84 mg/dL (65-115) 01/27/22 05:42 POC Glucose 80 mg/dL (70-110) 01/26/22 02:23 Calculated Osmolality 292 mOsm/kg (285-295) 01/27/22 05:42 Calcium 8.0 mg/dL (8.5-10.5) L 01/27/22 05:42 Phosphorus 5.2 mg/dL (2.5-4.5) H 01/26/22 01:23 Magnesium 2.2 mg/dL (1.7-2.3) 01/26/22 01:23 Total Bilirubin 0.2 mg/dL (0.15-1.2) 01/27/22 05:42 AST 13 U/L (0-32) 01/27/22 05:42 ALT 9 U/L (0-33) 01/27/22 05:42 Alkaline Phosphatase 80 IU/L (35-105) 01/27/22 05:42 NT-Pro-B Natriuret Pep 1033 pg/mL (0-450) H 01/26/22 01:23 Total Protein 6.1 g/dL (6.6-8.7) L 01/27/22 05:42 Albumin 2.8 g/dL (3.5-5.2) L 01/27/22 05:42 Globulin 3.3 g/dL (1.3-4.6) 01/27/22 05:42 Lipase 68 U/L (13-60) H 01/25/22 12:50 Urine Color Yellow (Yellow) 01/25/22 17:30 Urine Appearance Clear (CLEAR) 01/25/22 17:30 Urine pH 5 (5-7) 01/25/22 17:30 Ur Specific [place] 1.010 (1.005-1.030) 01/25/22 17:30 Urine Protein Neg (Negative) 01/25/22 17:30 Urine Glucose (UA) Norm (Normal) 01/25/22 17:30 Urine Ketones Negative (Negative) 01/25/22 17:30 Urine Blood 3+ (Negative) H 01/25/22 17:30 Urine Nitrate Negative (Negative) 01/25/22 17:30 Urine Bilirubin Neg (Negative) 01/25/22 17:30 Urine Urobilinogen Norm mg/dL (Negative) 01/25/22 17:30 Ur Leukocyte Esterase Negative (Negative) 01/25/22 17:30 Urine RBC 25-40 /hpf (0-2) H 01/25/22 17:30 Urine WBC 5-10 /hpf (0-5) H 01/25/22 17:30 Ur Squamous Epith Cells 0-4 /hpf (0-5) H 01/25/22 17:30 Amorphous Sediment Not Reportable 01/25/22 17:30 Urine Bacteria 1+ /hpf (NONE) H 01/25/22 17:30 U Random Total Protein 14 mg/dL 01/25/22 17:30 Ur Random Sodium 81 mmol/L 01/25/22 17:30 Urine Creatinine 62 mg/dL (28-217) 01/25/22 17:30 Vitals Last Vital Signs Temp 98.2 F 01/27/22 08:00 Pulse 61 01/27/22 06:00 Resp 22 H 01/27/22 06:00 BP 132/56 01/27/22 05:00 Pulse Ox 90 01/27/22 06:00 Discharge Plan Discharge Patient Disposition: Home Condition: Stable Prescriptions: Continued aspirin 325 mg tablet 325 mg PO DAILY PRN (Reason: Pain) 0RF metoprolol tartrate 25 mg tablet 25 mg PO BID Qty: 60 6RF Nystop 100,000 unit/gram powder See Rx Instructions .ROUTE .COMPLEX 0RF Rx Instructions: topically as directed tosgtbk-xbmd-dmvwe-oreg-capryl 100 mg-150 mg- 50 mg-150 mg Capsule 1 cap PO DAILY 0RF Held furosemide 80 mg tablet 80 mg PO DAILY Qty: 90 2RF Hold Instructions: Resume on 02/06/22. potassium chloride 10 mEq capsule, extended release 20 meq PO DAILY Qty: 180 2RF Hold Instructions: Resume on 02/06/22. lisinopril 40 mg tablet 40 mg PO DAILY Qty: 90 3RF Hold Instructions: Resume on 02/06/22. metolazone 2.5 mg tablet 2.5 mg PO Q48H PRN (Reason: edema) Qty: 30 3RF Hold Instructions: Resume on 01/30/22. Rx Instructions: Take 30 minutes before lasix magnesium 30 mg Tablet 30 mg PO DAILY 0RF Hold Instructions: Resume on 01/30/22. Discontinued fluconazole 150 mg Tablet 150 mg PO DAILY 0RF Discharge Orders: Discharge Order (Routine); Ordered 01/27/22 Ordered By: Houston Boateng Other Ambulatory Orders: Basic Metabolic Panel (Routine) Timeframe: 1 Week Facility: [facility] - Location: Lab - Main Lab Ordered By: Houston Boateng Referrals: [facility] [Outside] Kristi Steele MD [Primary Care Provider] - (left message for office to schedule,if you do not hear back ,please call to schedule this appointment. ) Demi Calderon FNP [Nurse Practitioner] - 4-7 days (Demi Calderon follow up for 1 week . appointment scheduled : January at time of 10:00 am ) Discharge Diet: Regular Patient Instructions: Acute Kidney Injury (DC), Hyponatremia (DC), Fall Prevention for Older Adults (DC), Hyperkalemia (DC), Hypertension (DC), Fall Prevention (DC), CHF Stoplight, Opioid Safety Discharge Attestations Time Spent in Discharge Care*: less than 30 min Quality Metrics Clinical Quality Measures [ No reported AMI, CVA or VTE this stay] Coding Level of Care Code Acute Chg FW DC note Diagnoses Acute kidney injury N17.9 Hyperkalemia E87.5 CHF (congestive heart failure), NYHA class III I50.9 Congestive heart failure type: unspecified Hypertension I10 Hypertension type: primary hypertension Hyponatremia E87.1
[2022-01-27] MEDS: nystatin cream 30 gm 1 APPLIC TOPICAL (10:18)
== END 2022-01-27 11:29 | disposition home health service (06) | DRG 682 ==
LOC: ER 13:40 → ICU 15:47
PROVIDERS: Admitting Provider Internal Medicine; Emergency Provider Emergency Medicine; PCP Specialist; Visit Provider Internal Medicine
DX: N17.9 Acute kidney failure, unspecified (principal); G93.41 Metabolic encephalopathy; I13.0 Hypertensive heart and chronic kidney disease with heart failure and stage 1 through stage 4 chronic kidney disease, or unspecified chronic kidney disease; I50.32 Chronic diastolic (congestive) heart failure; E87.1 Hypo-osmolality and hyponatremia; E87.5 Hyperkalemia; N18.9 Chronic kidney disease, unspecified; Z87.891 Personal history of nicotine dependence; I35.0 Nonrheumatic aortic (valve) stenosis; Z79.82 Long term (current) use of aspirin
CPT/HCPCS: 36415; 36416; 71045; 74176; 76770; 80048; 80053; 81001; 81003; 82575; 82962; 83690; 83735; 83880; 84100; 84156; 84300; 85025; 85610; 93005; 93306; 96365; 96372; 96375; 99285; J0610; J1644; J1815; J7030; J7040

== ENCOUNTER → 2022-02-03 10:32 | Outpatient (BNVA) | payer MEDICARE, OTHER, SELFPAY | PROVIDERS: PCP Specialist; Visit Provider Nurse Practitioner Family | DX: I11.0 Hypertensive heart disease with heart failure (principal); I50.9 Heart failure, unspecified; B37.2 Candidiasis of skin and nail | CPT/HCPCS: 99214 ==

== ENCOUNTER → 2022-02-06 09:27 | Outpatient (BNVA) | payer MEDICARE, OTHER, SELFPAY | PROVIDERS: PCP Specialist; Visit Provider Thoracic Surgery (Cardiothoracic Vascular Surgery) | DX: I96 Gangrene, not elsewhere classified (principal); L98.492 Non-pressure chronic ulcer of skin of other sites with fat layer exposed; N61.0 Mastitis without abscess; L03.317 Cellulitis of buttock | CPT/HCPCS: 97597; 99213; A6212; A6219 ==

== ENCOUNTER 2022-05-05 19:32 | Emergency (ER) | payer MEDICARE, OTHER, SELFPAY ==
[2022-05-05 19:41] VITALS: BP 170/76; PULSE 63; RESP 19; TEMP 36.1; O2SAT 97; BMI 29.7
--- NOTE | 2022-05-05 20:23 | XRR_ITS ---
PROCEDURE INFORMATION: Exam: XR Chest Exam date and time: 05/05/2022 8:33 PM Age: 81 years old Clinical indication: Other: Vomitting; Additional info: Vomiting TECHNIQUE: Imaging protocol: Radiologic exam of the chest. Views: 1 view. COMPARISON: CR XR chest 1V portable [id number] 01/25/2022 1:18 PM FINDINGS: Lungs: Visualized portions of the lungs are clear. Pleural spaces: Unremarkable. No pleural effusion. No pneumothorax. Heart/Mediastinum: Heart is within normal limits of size. Bones/joints: There are degenerative changes in the thoracic spine. XR/XR chest 1V portable [id number] IMPRESSION: No acute infiltrate.
--- NOTE | 2022-05-05 20:25 | ED_ITS ---
HPI - General Adult General: Chief complaint: Nausea/Vomiting/Diarrhea Stated complaint: n/v,weight loss Time Seen by Provider: 05/05/22 20:21 History of Present Illness: Patient is an 81-year-old female with a history of CHF, hyponatremia, hypertension presents emergency room with concerns of nausea vomiting and decreased p.o. intake for the last month. Patient has been symptomatic that she has had difficulty tolerating p.o. including liquids and solids. Patient ports that every time she eats, she throws things up. Patient denies any diarrhea, abdominal pain with po intake, melena/hematochezia. Patient has no prior abdominal surgeries. Patient denies any cough, runny nose, sore throat, chest pain, exertional dyspnea or pleuritic chest pain. Patient denies any prior abdominal surgery. Denies any urinary complaints. Denies new vaginal discharge or vaginal bleeding. Onset:1 month ago Duration:1 month Location:home Severity:moderate Associated symptoms: Reports nausea; Deny chest pain, dyspnea, rash, palpitations or vomiting Review of Systems Const: Denies: fever(s) or chills Eyes: Denies: change in vision ENMT: Denies: mouth pain Card: Denies: chest pain or palpitations Resp: Denies: dyspnea or non-productive cough GI: Reports: nausea and other (+decreased po intake); Denies: abdominal pain, vomiting or diarrhea : Denies: dysuria Musc: Denies: extremity pain Skin/Breast: Denies: rash or new lesions Neuro: Denies: weakness in extremities Psych: Reports: other (Normal mood) Jamel/Lymph: Denies: easy bruising PFS ED PFSH: Medical History CHF (congestive heart failure), NYHA class III Hypertension Hyponatremia Leg swelling RBBB Social History Smoking and tobacco status: former smoker Physical Exam Const: COMMON NORMALS: alert HENMT: COMMON NORMALS: atraumatic HEAD & SCALP: atraumatic MOUTH: moist mucous membranes not abnormal Eye: COMMON NORMALS: EOMs intact bilaterally and conjunctivae normal CONJUNCTIVA: Yes conjunctivae normal Neck/C-Spine: COMMON NORMALS: full ROM and supple Resp: COMMON NORMALS: normal respiratory effort and clear to auscultation bilaterally AUSCULTATION: clear to auscultation bilaterally Cardio: COMMON NORMALS: regular rate RATE: regular rate GI: COMMON NORMALS: Soft to palpation and non-tender PALPATION: Yes Soft to palpation OTHER: No focal TTP. NO guarding rebound, guarding, rigidity. No CVA tenderness to percussion. Neg [place]/Neg McBurney's point tenderness, no suprabupic tenderness to palpation. Extremity: COMMON NORMALS: full ROM Neuro: SENSORIUM/ORIENTATION: Yes alert MOTOR EXAM: No Abnormal motor strength present and Other motor observations present (no focal motor deficits) Psych: COMMON NORMALS: speech normal SPEECH: Yes normal speech MOOD & AFFECT: Yes euthymic mood Course Vital Signs: Vital signs: Vital Signs Temperature 96.9 F L 05/05/22 19:41 Pulse Rate 63 05/05/22 23:25 Respiratory Rate 12 05/05/22 23:25 Blood Pressure 195/93 05/05/22 23:25 Pulse Oximetry 95 05/05/22 23:25 Oxygen Delivery Me thod 05/05/22 23:25 MDM - General Adult Medical Decision Making Patient is an 81-year-old female with a history of CHF, hyponatremia, hypertension presents emergency room with concerns of nausea vomiting and decreased p.o. intake for the last month. On arrival, patient had an episode of emesis while observed in the emergency room. Patient found to have sodium 130. Potassium of 3.0. Troponin x2 with delta less than 5 her EKG is nonischemic. Patient not actively complaining of chest pain, generalized weakness or ab dominal pain. This present, do not suspect ACS at this time. Patient had a CT abdomen pelvis which did not show any focal pathologies. Patient received Zofran reports feeling symptomatically improved. Patient has not had any additional nausea or vomiting. Patient has been able to tolerate liquid without issue. UA is consistent with possible early UTI. Patient will be started on new antibiotics. Rx Maalox/pepcid PRN dyspepsia, and zofran PRN nausea/vomiting, cefdinir for UTI/early pyelonephritis Present time, does not not knowing what the cause of patient's nausea vomiting that which has been chronic. I have given patient follow up with our supportive employment case manager to be seen by our outpatient by Dr. Piper for a swallow study and an EGD and possible PEG for recent weight loss of 25 lbs. Patient aware of a call from our supportive employment case manager to schedule for appointment(s) and verbalizes understandi ng of the importance of following up. Disposition: Discharge. Patient counseled regarding diagnostic impression, treatment plan. Patient given ED strict return precautions to return for continuation, worsening, or development of new symptoms. Instructed to f/u w/ PCP regarding symptoms today. Patient verbalized understanding. Lab Data : 05/05/22 20:45 05/05/22 20:45 Radiology Impressions Chest X-Ray 05/05/22 20:23 IMPRESSION: No acute infiltrate. Abdomen/Pelvis CT 05/05/22 21:58 IMPRESSION: No acute finding. Laboratory Results WBC 8.7 10^3/uL (4.0-10.0) 05/05/22 20:45 RBC 4.46 10^6/uL (4.1-5.3) 05/05/22 20:45 Hgb 13.4 g/dL (11.5-15.3) 05/05/22 20:45 Hct 40.1 % (37.0-47.0) 05/05/22 20:45 MCV 89.9 fl (81-99) 05/05/22 20:45 MCH 30.0 pg (28.0-34.0) 05/05/22 20:45 MCHC 33.4 g/dL (30.0-36.0) 05/05/22 20:45 RDW 13.8 % (12.1-15.1) 05/05/22 20:45 Plt Count 235 10^3/cmm (130-400) 05/05/22 20:45 MPV 9.0 fL (7.4-10.4) 05/05/22 20:45 Neut % (Auto) 72.6 % 05/05/22 20:45 Lymph % (Auto) 19.5 % 05/05/22 20:45 [place] % (Auto) 6.5 % 05/05/22 20:45 Eos % (Auto) 0.3 % 05/05/22 20:45 Baso % (Auto) 0.6 % 05/05/22 20:45 Neut # (Auto) 6.29 10^3/uL (1.8-7.7) 05/05/22 20:45 Lymph # (Auto) 1.7 10^3/uL (0.8-4.8) 05/05/22 20:45 [place] # (Auto) 0.6 10^3/uL (0.2-0.9) 05/05/22 20:45 Eos # (Auto) 0.0 10^3/uL (0.0-0.8) 05/05/22 20:45 Baso # (Auto) 0.1 10^3/uL (0.0-0.1) 05/05/22 20:45 Nucleated RBC % (auto) 0 % 05/05/22 20:45 Nucleated RBCs # 0.0 /100WBC 05/05/22 20:45 Sodium 130 mmol/L (136-145) L 05/05/22 20:45 Potassium 3.0 mmol/L (3.5-5.1) L 05/05/22 20:45 Chloride 93 mmol/L (98-107) L 05/05/22 20:45 Carbon Dioxide 26 mmol/L (22-29) 05/05/22 20:45 Anion Gap 14.0 (5-19) 05/05/22 20:45 BUN 14 mg/dL (8-23) 05/05/22 20:45 Creatinine 0.9 mg/dL (0.5-0.9) 05/05/22 20:45 GFR Calculation Not Reportable 05/05/22 20:45 Glucose 110 mg/dL (65-115) 05/05/22 20:45 Calculated Osmolality 271 mOsm/kg (285-295) L 05/05/22 20:45 Calcium 8.9 mg/dL (8.5-10.5) 05/05/22 20:45 Total Bilirubin 1.0 mg/dL (0.15-1.2) 05/05/22 20:45 AST 22 U/L (0-32) 05/05/22 20:45 ALT 15 U/L (0-33) 05/05/22 20:45 Alkaline Phosphatase 78 U/L (35-105) 05/05/22 20:45 Troponin T Baseline 29 ng/L (0-10) H 05/05/22 20:45 Troponin T 120 Minute 29.09 ng/L (0-10) H 05/05/22 22:16 Delta Troponin T 0.09 ABS# (0-10) 05/05/22 22:16 Total Protein 6.7 g/dL (6.6-8.7) 05/05/22 20:45 Albumin 3.5 g/dL (3.5-5.2) 05/05/22 20:45 Globulin 3.2 g/dL (1.3-4.6) 05/05/22 20:45 Lipase 32 U/L (13-60) 05/05/22 20:45 Urine Color Yellow (Yellow) 05/05/22 23:16 Urine Appearance Cloudy (CLEAR) A 05/05/22 23:16 Urine pH 6 (5-7) 05/05/22 23:16 Ur Specific [place] 1.015 (1.005-1.030) 05/05/22 23:16 Urine Protein Neg (Negative) 05/05/22 23:16 Urine Glucose (UA) Norm (Normal) 05/05/22 23:16 Urine Ketones Negative (Negative) 05/05/22 23:16 Urine Blood Neg (Negative) 05/05/22 23:16 Urine Nitrate Negative (Negative) 05/05/22 23:16 Urine Bilirubin Neg (Negative) 05/05/22 23:16 Urine Urobilinogen 4 mg/dL (Negative) H 05/05/22 23:16 Ur Leukocyte Esterase 1+ (Negative) H 05/05/22 23:16 Urine RBC 0-4 /hpf (0-2) H 05/05/22 23:16 Urine WBC 15-25 /hpf (0-5) H 05/05/22 23:16 Ur Squamous Epith Cells 5-10 /hpf (0-5) H 05/05/22 23:16 Amorphous Sediment Not Reportable 05/05/22 23:16 Urine Bacteria 3+ /hpf (NONE) H 05/05/22 23:16 Discharge Plan Discharge Patient Disposition: Home Clinical Impression: Decreased ability to feed self, UTI (urinary tract infection) Condition: Stable Prescriptions: New ondansetron 4 mg tablet,disintegrating 4 mg PO TID PRN (Reason: nausea and vomiting) 4 Days Qty: 12 0RF Pepcid 20 mg tablet 20 mg PO BID PRN (Reason: abdominal pain) 10 Days Qty: 20 0RF Maalox Advanced 1,000-60 mg tablet,chewable 1 tab PO TID PRN (Reason: abdominal pain) 7 Days Qty: 21 0RF cefdinir 300 mg capsule 300 mg PO BID 10 Days Qty: 20 0RF No Action aspirin 325 mg tablet 325 mg PO DAILY PRN (Reason: Pain) furosemide 80 mg tablet 80 mg PO DAILY Qty: 90 2RF Hold Instructions: Resume on 02/06/22. potassium chloride 10 mEq capsule, extended release 20 meq PO DAILY Qty: 180 2RF Hold Instructions: Resume on 02/06/22. lisinopril 40 mg tablet 40 mg PO DAILY Qty: 90 3RF Hold Instructions: Resume on 02/06/22. metolazone 2.5 mg tablet 2.5 mg PO Q48H PRN (Reason: edema) Qty: 30 3RF Hold Instructions: Resume on 01/30/22. Rx Instructions: Take 30 minutes before lasix metoprolol tartrate 25 mg tablet 25 mg PO BID Qty: 60 6RF Nystop 100,000 unit/gram powder See Rx Instructions .ROUTE .COMPLEX Rx Instructions: topically as directed magnesium 30 mg Tablet 30 mg PO DAILY Hold Instructions: Resume on 01/30/22. cuzayzf-ihhi-mdduy-oreg-capryl 100 mg-150 mg- 50 mg-150 mg Capsule 1 cap PO DAILY Discharge Orders: Discharge ED (Routine); Ordered 05/05/22 Ordered By: Dennis Heredia Discharge Diet: Advance as tolerated Discharge Activity: Increase activity as tolerated Patient Instructions: Acute Nausea and Vomiting (ED) Activity Restrictions/Additional Instructions: Please come back if you have any worsening abdominal pain, fever or chills, nausea or vomiting, diarrhea, blood in the stool, inability hold down liquid or solids, or any new concerning complaints. Our supportive employment case manager will have you follow-up with Dr. Piper in the next few days for an EGD and a swallow study. You would be expected to have a phone call with our supportive employment case manager who will put you on the schedule. You can expect a call from us in the next 2-3 days. If you don't hear from us, call us back in the emergency room at [phone]. Coding Level of Care Code ED Bundle Shaker for Candis Fwd Exam Comprehensive
--- NOTE | 2022-05-05 20:48 | ECG_ITS ---
[facility] Test Date: 2022-05-05 Pat Name: Tiffanie Rosas Department: Room: Gender: Female Department Editor: : 1940 Requested By: Dennis Heredia Order Number: [id number] Ramos MD: Mack Bradley M.D. Measurements Intervals [place] Rate: 60 P: 71 FL: 192 QRS: 19 QRSD: 156 T: 35 QT: 460 QTc: 461 Interpretive Statements SINUS RHYTHM INTRAVENTRICULAR CONDUCTION DELAY [130+ ms QRS DURATION] Compared to ECG 01/25/2022 13:27:34 Intraventricular conduction delay now present Right bundle-branch block no longer present Electronically Signed On 05-07-2022 22:11:39 CDT by Mack Bradley M.D. [email or web address] ([id number] [email or web address]
[2022-05-05 21:16] LABS: Basophils # 0.1 10^3/uL (0.0-0.1); Basophils % 0.6 %; Eosinophils % 0.3 %; Hematocrit 40.1 % (37.0-47.0); Hemoglobin 13.4 g/dL (11.5-15.3); Lymphocytes # 1.7 10^3/uL (0.8-4.8); Lymphocytes % 19.5 %; Mean Corpuscular HGB Conc 33.4 g/dL (30.0-36.0); Mean Corpuscular Volume 89.9 fl (81-99); Monocytes # 0.6 10^3/uL (0.2-0.9); Monocytes % 6.5 %; Neutrophils # 6.29 10^3/uL (1.8-7.7); Neutrophils % 72.6 %; Nucleated Red Blood Cells % 0 %; Platelet Count 235 10^3/cmm (130-400); Red Blood Count 4.46 10^6/uL (4.1-5.3); Red Cell Distribution Width 13.8 % (12.1-15.1); White Blood Count 8.7 10^3/uL (4.0-10.0)
[2022-05-05 21:32] LABS: Troponin(5th) Baseline 29 ng/L (0-10)
[2022-05-05 21:34] LABS: Alanine Aminotransferase 15 U/L (0-33); Albumin Level 3.5 g/dL (3.5-5.2); Alkaline Phosphatase 78 U/L (35-105); Aspartate Amino Transferase 22 U/L (0-32); Blood Urea Nitrogen 14 mg/dL (8-23); Calcium 8.9 mg/dL (8.5-10.5); Carbon Dioxide 26 mmol/L (22-29); Chloride 93 mmol/L (98-107); Globulin 3.2 g/dL (1.3-4.6); Glucose 110 mg/dL (65-115); Lipase 32 U/L (13-60); Osmolality Calculated 271 mOsm/kg (285-295); Sodium 130 mmol/L (136-145); Total Protein 6.7 g/dL (6.6-8.7)
[2022-05-05 21:49] VITALS: BP 203/81; PULSE 65; RESP 13
--- NOTE | 2022-05-05 21:58 | CTR_ITS ---
PROCEDURE INFORMATION: Exam: CT Abdomen And Pelvis Without Contrast Exam date and time: 05/05/2022 10:28 PM Age: 81 years old Clinical indication: Vomiting; Prior surgery; Surgery date: 6+ months; Surgery type: Baldder sling; Patient HX: Abd pain, nausea; Additional info: Abd pain, Dr. Jhaveri said to change to w/o. Patient's iv infiltrated TECHNIQUE: Imaging protocol: Computed tomography of the abdomen and pelvis without contrast. Radiation optimization: All CT scans at this facility use at least one of these dose optimization techniques: automated exposure control; mA and/or kV adjustment per patient size (includes targeted exams where dose is matched to clinical indication); or iterative reconstruction. COMPARISON: CT abdomen pelvis wo con [id number] 01/25/2022 2:40 PM RADIATION DOSE METRICS: Total DLP (mGy-cm): 671.98 FINDINGS: Limitations: The absence of intravenous contrast lessens the sensitivity of this study for solid organ abnormalities. Lungs: There is calcified granuloma in the left lower lobe. Heart: There is mild atherosclerotic calcification of the coronary arteries. Diaphragm: There is a small hiatal hernia. Liver: There is no focal abnormality within the liver. Gallbladder and bile ducts: The gallbladder is normal. Pancreas: The pancreas is normal. Spleen: The spleen is normal. Adrenal glands: The adrenal glands are normal. Kidneys and ureters: There is some focal scarring in the mid left kidney. Kidneys are otherwise unremarkable. There is no evidence of hydronephrosis. There is no evidence of renal or ureteral calcifications. Stomach and bowel: There is no evidence of colitis/diverticulitis. There is no evidence of intestinal obstruction. Appendix: A normal appendix is identified. Intraperitoneal space: Unremarkable. No free air. No significant fluid collection. Vasculature: The aorta demonstrates mild atherosclerotic calcification. There is no evidence of an abdominal aortic aneurysm. Lymph nodes: There are calcified hilar and mediastinal lymph nodes in keeping with old granulomatous disease. There is no evidence of lymphadenopathy. Urinary bladder: Unremarkable as visualized. Reproductive: There has been a hysterectomy. Bones/joints: The lumbar spine demonstrates marked degenerative changes at multiple levels. There is multilevel lumbar stenosis. Soft tissues: Unremarkable. CT/CT abdomen pelvis wo con [id number] IMPRESSION: No acute finding.
[2022-05-05] MEDS: ondansetron 2 mg/ML SDV 2 mL 4 MG IVP (22:05)
[2022-05-05 22:43] LABS: Troponin 5 2HR 29.09 ng/L (0-10)
[2022-05-05 22:47] LABS: Troponin 5 2HR Delta 0.09 ABS# (0-10)
[2022-05-05] MEDS: ondansetron 4 MG Tablet PO (23:22)
[2022-05-05 23:25] VITALS: BP 195/93; PULSE 63; RESP 12; O2SAT 95
[2022-05-05 23:35] LABS: Add Urine Microscopic? YES; Bilirubin Urine Neg (Negative); Blood Urine Neg (Negative); Glucose Urine UA Norm (Normal); Ketones Urine Negative (Negative); Leukocyte Esterase Urine 1+ (Negative); Nitrate Urine Negative (Negative); Protein Urine Neg (Negative); Specific Gravity, Urine 1.015 (1.005-1.030); Urine Appearance Cloudy (CLEAR); Urine Color Yellow (Yellow); Urobilinogen Urine 4 mg/dL (Negative); pH Urine 6 (5-7)
[2022-05-05 23:36] LABS: Add Urine Culture? Yes; Bacteria Urine 3+ /hpf; RBC Urine 0-4 /hpf (0-2); WBC Urine 15-25 /hpf (0-5)
[2022-05-06 00:20] VITALS: PULSE 60; RESP 15; O2SAT 95
--- NOTE | 2022-05-06 02:23 | ECG_ITS ---
[facility] Test Date: 2022-05-05 Pat Name: Tiffanie Rosas Department: Room: Gender: Female Instrumentation And Controls Designer: : 1940 Requested By: Dennis Heredia Order Number: [id number] Ramos MD: Mack Bradley M.D. Measurements Intervals [place] Rate: 58 P: 6 [place]: 185 QRS: 19 QRSD: 142 T: 36 QT: 484 QTc: 478 Interpretive Statements SINUS BRADYCARDIA WITH OCCASIONAL SUPRAVENTRICULAR PREMATURE COMPLEXES RIGHT BUNDLE BRANCH BLOCK [120+ ms QRS DURATION, UPRIGHT V1, 40+ ms S IN I/aVL/V4/V5/V6] Compared to ECG 01/25/2022 13:27:34 Sinus rhythm no longer present Electronically Signed On 05-07-2022 22:11:31 CDT by Mack Bradley M.D. [id number]
--- NOTE | 2022-05-08 11:06 | DCPLANNER ---
Addendum entered by Rocio Zavaleta 05/10/22 11:34: Patient had a follow up appointment with Dr. Piper at general surgery - patient did attend appointment. Original Note: manager cleaning had message to schedule a follow up appointment for patient with general surgery. manager cleaning sent patients information to the front office staff at general surgery. Patients information will be printed and reviewed. Clinic will call patient with appointment information.
== END 2022-05-05 23:45 | disposition home or self-care (01) ==
PROVIDERS: Physician Assistant; Emergency Provider Emergency Medicine
DX: R63.39 Other feeding difficulties (principal); N39.0 Urinary tract infection, site not specified; Z79.82 Long term (current) use of aspirin; I11.0 Hypertensive heart disease with heart failure; I50.9 Heart failure, unspecified; Z87.891 Personal history of nicotine dependence
CPT/HCPCS: 36415; 71045; 74176; 80053; 81001; 83690; 84484; 85025; 87077; 87086; 87186; 93005; 96374; 99285; J2405; Q0162

== ENCOUNTER → 2022-05-09 13:36 | Outpatient (BNVA) | payer MEDICARE, OTHER, SELFPAY | PROVIDERS: Visit Provider Surgery | DX: K21.9 Gastro-esophageal reflux disease without esophagitis (principal) | CPT/HCPCS: 99203 ==

== ENCOUNTER 2022-05-12 10:26 | Emergency (ER) | payer MEDICARE, OTHER, SELFPAY ==
[2022-05-12 10:32] VITALS: BP 138/72; PULSE 67; RESP 16; TEMP 36.6; O2SAT 98; BMI 28.2
[2022-05-12 10:35] VITALS: BP 130/78; PULSE 64; RESP 18; O2SAT 93
--- NOTE | 2022-05-12 10:49 | W.ED.NAVMDI ---
Documented by User: Chyna Dumont PA-C 05/12/22 16:40 HPI - Nausea/Vomiting/Diarrhea General: Chief complaint: Nausea/Vomiting/Diarrhea Stated complaint: Dizziness, vomitting Time Seen by Provider: 05/12/22 10:37 Source: patient and family Mode of arrival: wheelchair Limitations: no limitations History of Present Illness: Patient is an 81-year-old female with a history of CHF, hyponatremia, hypertension presents emergency room with concerns of nausea vomiting and decreased p.o. intake for the last month.?Pt has had weight loss of greater than 25 lbs in 30 days. Pt tolerates some PO liquids but is unable to tolate any solids at all. Family reports even last night her pills came back up immediately. Patient was seen in the ER 2 weeks ago for the same issue. At that time she was scheduled for a swallow study and outpatient follow-up. Patient does have a swallow study scheduled for May 24 however family reports she is continuing to get weaker and weaker and is unable to keep any food down at this point. Patient was so weak this morning that she did fall while going down the steps outside. She reports she fell forward. She denies any pain in extremities. Patient did not hit her head. At last visit patient was started on pantoprazole however reports no improvement in symptoms.? Review of Systems General: Reports: 10 or more systems reviewed and unremarkable except in HPI and below PFSH ED PFSH: Medical History CHF (congestive heart failure), NYHA class III GERD (gastroesophageal reflux disease) Hypertension Hyponatremia Leg swelling RBBB Swelling of lower leg Vomiting Surgical History Hx of section Hx of eye surgery lenses placed in bilat eyes Hx of hysterectomy Hx of knee surgery bilateral knee replacements Social History Smoking and tobacco status: never smoked Physical Exam Const: OTHER: pt appears tired, difficulty keeping her eyes open even in discussion, weak appearing HENMT: COMMON NORMALS: normocephalic, atraumatic, external ears normal, Normal external nose present, moist oral mucous membranes and oropharynx normal HEAD & SCALP: normocephalic and atraumatic NOSE: Normal external nose present EXTERNAL EAR: Yes external ears normal Neck/C-Spine: COMMON NORMALS: full ROM and no lymphadenopathy Cardio: COMMON NORMALS: regular rate and regular rhythm RATE: regular rate RHYTHM: regular rhythm HEART SOUNDS: Murmur heart sound present GI: COMMON NORMALS: Normal to inspection, nondistended, normoactive bowel sounds present, Soft to palpation and non-tender PALPATION: Yes Soft to palpation Extremity: NARRATIVE EXTREMITY EXAM: 2+ pedal edema bilaterally Psych: COMMON NORMALS: mental status grossly normal, Normal thought process present and cooperative THOUGHT PROCESS: Normal thought process present Skin: COMMON NORMALS: no rashes or lesions noted and no wounds GENERAL SKIN EXAM: no rashes or lesions noted Course ED course: Patient presents to the ER again this week for continued weakness and not eating. Patient was seen 1 week ago and had some electrolyte abnormalities but ultimately sent home and was told to follow-up for a swallow study. Swallow study is not until May 24 and patient has not eaten any solids since leaving the ER last week. She is able to tolerate some water. She is unable to even get pills down at times. We will do repeat labs. I do not feel imaging is necessary at this time as patient had a normal CT last week. Will consider admission pending lab work. Reevaluation(s): Reevaluation #1: Patient's electrolytes are slightly low both potassium and sodium however improved from 1 week ago. Patient does have an elevated BNP at 4400 at this time. Patient's creatinine is stable. She has a slightly elevated bilirubin. Slightly elevated white count. Given increased debility and inability to keep any p.o. solids down, we would likely consider admission. GI is not available at this time as patient will need a scope or esophageal dilation if that is the cause of this. I discussed this patient with Dr. Le who recommends seeing about a transfer. At this time hospitals across the [facility] have no beds available but we will continue to try at this time. Time: 11:56 Reevaluation #2: Family was requesting transfer to [place] however [place] does not have GI and refused. Time: 12:14 Reevaluation #3: Spoke with Dr. Carmen at [facility] in [place]. Feel pt would be appropriate and they will check for bed availability. Time: 12:41 Additional Reevaluation(s): Pt has been accepted at [facility]. Awaiting transfer. Pts family was notified and was in agreement with this. Vital Signs: Vital signs: Vital Signs Temperature 97.8 F 05/12/22 18:31 Pulse Rate 64 05/12/22 19:07 Respiratory Rate 18 05/12/22 19:07 Blood Pressure 155/60 05/12/22 19:07 Pulse Oximetry 100 05/12/22 19:07 Oxygen Delivery Me thod 05/12/22 18:31 MDM - Nausea/Vomiting/Diarrhea Medical Decision Making Pt is getting increasingly weak. She is unable to swallow any solids at this time. She has had 10 lbs of weight loss in 1 week. Pt needs GI for scope and to rule out esophageal stricture. Pt was accepted to [facility] and family verbalized understanding and was in agreement with this transfer. Lab Data : 05/12/22 10:44 05/12/22 10:[address] 05/12/22 14:28 IMPRESSION: No acute intracranial abnormality. Laboratory Results WBC 13.0 10^3/uL (4.0-10.0) H 05/12/22 10:44 RBC 5.28 10^6/uL (4.1-5.3) 05/12/22 10:44 Hgb 15.7 g/dL (11.5-15.3) H 05/12/22 10:44 Hct 46.5 % (37.0-47.0) 05/12/22 10:44 MCV 88.1 fl (81-99) 05/12/22 10:44 MCH 29.7 pg (28.0-34.0) 05/12/22 10:44 MCHC 33.8 g/dL (30.0-36.0) 05/12/22 10:44 RDW 13.7 % (12.1-15.1) 05/12/22 10:44 Plt Count 228 10^3/cmm (130-400) 05/12/22 10:44 MPV 8.8 fL (7.4-10.4) 05/12/22 10:44 Neut % (Auto) 87.2 % 05/12/22 10:44 Lymph % (Auto) 6.8 % 05/12/22 10:44 [place] % (Auto) 4.9 % 05/12/22 10:44 Eos % (Auto) 0.0 % 05/12/22 10:44 Baso % (Auto) 0.3 % 05/12/22 10:44 Neut # (Auto) 11.35 10^3/uL (1.8-7.7) H 05/12/22 10:44 Lymph # (Auto) 0.9 10^3/uL (0.8-4.8) 05/12/22 10:44 [place] # (Auto) 0.6 10^3/uL (0.2-0.9) 05/12/22 10:44 Eos # (Auto) 0.0 10^3/uL (0.0-0.8) 05/12/22 10:44 Baso # (Auto) 0.0 10^3/uL (0.0-0.1) 05/12/22 10:44 Nucleated RBC % (auto) 0 % 05/12/22 10:44 Nucleated RBCs # 0.0 /100WBC 05/12/22 10:44 Sodium 135 mmol/L (136-145) L 05/12/22 10:44 Potassium 3.4 mmol/L (3.5-5.1) L 05/12/22 10:44 Chloride 92 mmol/L (98-107) L 05/12/22 10:44 Carbon Dioxide 29 mmol/L (22-29) 05/12/22 10:44 Anion Gap 17.4 (5-19) 05/12/22 10:44 BUN 10 mg/dL (8-23) 05/12/22 10:44 Creatinine 1.1 mg/dL (0.5-0.9) H 05/12/22 10:44 GFR Calculation Not Reportable 05/12/22 10:44 Glucose 169 mg/dL (65-115) H 05/12/22 10:44 Calculated Osmolality 283 mOsm/kg (285-295) L 05/12/22 10:44 Calcium 9.4 mg/dL (8.5-10.5) 05/12/22 10:44 Total Bilirubin 1.3 mg/dL (0.15-1.2) H 05/12/22 10:44 AST 20 U/L (0-32) 05/12/22 10:44 ALT 16 U/L (0-33) 05/12/22 10:44 Alkaline Phosphatase 90 U/L (35-105) 05/12/22 10:44 NT-Pro-B Natriuret Pep 4472 pg/mL (0-450) H 05/12/22 10:44 Total Protein 7.6 g/dL (6.6-8.7) 05/12/22 10:44 Albumin 3.7 g/dL (3.5-5.2) 05/12/22 10:44 Globulin 3.9 g/dL (1.3-4.6) 05/12/22 10:44 Urine Color Yellow (Yellow) 05/12/22 13:20 Urine Appearance Clear (CLEAR) 05/12/22 13:20 Urine pH 6.5 (5-7) 05/12/22 13:20 Ur Specific [place] 1.010 (1.005-1.030) 05/12/22 13:20 Urine Protein Neg (Negative) 05/12/22 13:20 Urine Glucose (UA) Norm (Normal) 05/12/22 13:20 Urine Ketones 1+ (Negative) H 05/12/22 13:20 Urine Blood Neg (Negative) 05/12/22 13:20 Urine Nitrate Negative (Negative) 05/12/22 13:20 Urine Bilirubin 1+ (Negative) H 05/12/22 13:20 Urine Urobilinogen Norm mg/dL (Negative) 05/12/22 13:20 Ur Leukocyte Esterase Negative (Negative) 05/12/22 13:20 Critical Care Time Critical Care Time: Critical Care Time: No Discharge Plan Discharge Patient Disposition: Transfer to ED Clinical Impression: Nausea & vomiting, Acute hyponatremia, Acute hypokalemia, Difficulty swallowing solids, CHF (congestive heart failure), Abnormal weight loss Condition: Stable Prescriptions: No Action aspirin 325 mg tablet 325 mg PO DAILY PRN (Reason: Pain) potassium chloride 10 mEq capsule, extended release 20 meq PO DAILY Qty: 180 2RF Hold Instructions: Resume on 02/06/22. lisinopril 40 mg tablet 40 mg PO DAILY Qty: 90 3RF Hold Instructions: Resume on 02/06/22. metolazone 2.5 mg tablet 2.5 mg PO Q48H PRN (Reason: edema) Qty: 30 3RF Hold Instructions: Resume on 01/30/22. Rx Instructions: Take 30 minutes before lasix metoprolol tartrate 25 mg tablet 25 mg PO BID Qty: 60 6RF pantoprazole [Protonix] 40 mg tablet,delayed release (DR/EC) 40 mg PO BID 42 Days Qty: 84 0RF magnesium 30 mg Tablet 30 mg PO DAILY Hold Instructions: Resume on 01/30/22. gceftsj-kwvy-ovbfp-oreg-capryl 100 mg-150 mg- 50 mg-150 mg Capsule 1 cap PO DAILY furosemide 40 mg tablet 40 mg PO DAILY ondansetron 4 mg tablet,disintegrating 4 mg PO TID PRN (Reason: Nausea And Vomiting) Referrals: Chelle Dumont PA [Primary Care Provider] - Coding Level of Care Code ED Scientific Research Associate for Chg Fwd Exam Detailed Documented by User: Cameron Xiong DO 05/23/22 09:07 HPI - Nausea/Vomiting/Diarrhea General: Chief complaint: Nausea/Vomiting/Diarrhea Stated complaint: Dizziness, vomitting Time Seen by Provider: 05/12/22 10:37 [facility] ED PFSH: Medical History CHF (congestive heart failure), NYHA class III GERD (gastroesophageal reflux disease) Hypertension Hyponatremia Leg swelling RBBB Swelling of lower leg Vomiting Surgical History Hx of section Hx of eye surgery lenses placed in bilat eyes Hx of hysterectomy Hx of knee surgery bilateral knee replacements Social History Smoking and tobacco status: never smoked Course Vital Signs: Vital signs: Vital Signs Temperature 97.8 F 05/12/22 18:31 Pulse Rate 64 05/12/22 19:07 Respiratory Rate 18 05/12/22 19:07 Blood Pressure 155/60 05/12/22 19:07 Pulse Oximetry 100 05/12/22 19:07 Oxygen Delivery Me thod 05/12/22 18:31 MDM - Nausea/Vomiting/Diarrhea Medical Decision Making Pt is getting increasingly weak. She is unable to swallow any solids at this time. She has had 10 lbs of weight loss in 1 week. Pt needs GI for scope and to rule out esophageal stricture. Pt was accepted to [place] and family verbalized understanding and was in agreement with this transfer. Chart reviewed and patient discussed with midlevel. Agree with assessment and plan. No available beds at our facility at this time patient transferred for further evaluation of the patient care. Medical Records I reviewed the patient's medical records. Lab Data I reviewed the patient's lab results. : 05/12/22 10:44 05/12/22 10:[address] 05/12/22 14:28 IMPRESSION: No acute intracranial abnormality. Laboratory Results WBC 13.0 10^3/uL (4.0-10.0) H 05/12/22 10:44 RBC 5.28 10^6/uL (4.1-5.3) 05/12/22 10:44 Hgb 15.7 g/dL (11.5-15.3) H 05/12/22 10:44 Hct 46.5 % (37.0-47.0) 05/12/22 10:44 MCV 88.1 fl (81-99) 05/12/22 10:44 MCH 29.7 pg (28.0-34.0) 05/12/22 10:44 MCHC 33.8 g/dL (30.0-36.0) 05/12/22 10:44 RDW 13.7 % (12.1-15.1) 05/12/22 10:44 Plt Count 228 10^3/cmm (130-400) 05/12/22 10:44 MPV 8.8 fL (7.4-10.4) 05/12/22 10:44 Neut % (Auto) 87.2 % 05/12/22 10:44 Lymph % (Auto) 6.8 % 05/12/22 10:44 [place] % (Auto) 4.9 % 05/12/22 10:44 Eos % (Auto) 0.0 % 05/12/22 10:44 Baso % (Auto) 0.3 % 05/12/22 10:44 Neut # (Auto) 11.35 10^3/uL (1.8-7.7) H 05/12/22 10:44 Lymph # (Auto) 0.9 10^3/uL (0.8-4.8) 05/12/22 10:44 [place] # (Auto) 0.6 10^3/uL (0.2-0.9) 05/12/22 10:44 Eos # (Auto) 0.0 10^3/uL (0.0-0.8) 05/12/22 10:44 Baso # (Auto) 0.0 10^3/uL (0.0-0.1) 05/12/22 10:44 Nucleated RBC % (auto) 0 % 05/12/22 10:44 Nucleated RBCs # 0.0 /100WBC 05/12/22 10:44 Sodium 135 mmol/L (136-145) L 05/12/22 10:44 Potassium 3.4 mmol/L (3.5-5.1) L 05/12/22 10:44 Chloride 92 mmol/L (98-107) L 05/12/22 10:44 Carbon Dioxide 29 mmol/L (22-29) 05/12/22 10:44 Anion Gap 17.4 (5-19) 05/12/22 10:44 BUN 10 mg/dL (8-23) 05/12/22 10:44 Creatinine 1.1 mg/dL (0.5-0.9) H 05/12/22 10:44 GFR Calculation Not Reportable 05/12/22 10:44 Glucose 169 mg/dL (65-115) H 05/12/22 10:44 Calculated Osmolality 283 mOsm/kg (285-295) L 05/12/22 10:44 Calcium 9.4 mg/dL (8.5-10.5) 05/12/22 10:44 Total Bilirubin 1.3 mg/dL (0.15-1.2) H 05/12/22 10:44 AST 20 U/L (0-32) 05/12/22 10:44 ALT 16 U/L (0-33) 05/12/22 10:44 Alkaline Phosphatase 90 U/L (35-105) 05/12/22 10:44 NT-Pro-B Natriuret Pep 4472 pg/mL (0-450) H 05/12/22 10:44 Total Protein 7.6 g/dL (6.6-8.7) 05/12/22 10:44 Albumin 3.7 g/dL (3.5-5.2) 05/12/22 10:44 Globulin 3.9 g/dL (1.3-4.6) 05/12/22 10:44 Urine Color Yellow (Yellow) 05/12/22 13:20 Urine Appearance Clear (CLEAR) 05/12/22 13:20 Urine pH 6.5 (5-7) 05/12/22 13:20 Ur Specific [place] 1.010 (1.005-1.030) 05/12/22 13:20 Urine Protein Neg (Negative) 05/12/22 13:20 Urine Glucose (UA) Norm (Normal) 05/12/22 13:20 Urine Ketones 1+ (Negative) H 05/12/22 13:20 Urine Blood Neg (Negative) 05/12/22 13:20 Urine Nitrate Negative (Negative) 05/12/22 13:20 Urine Bilirubin 1+ (Negative) H 05/12/22 13:20 Urine Urobilinogen Norm mg/dL (Negative) 05/12/22 13:20 Ur Leukocyte Esterase Negative (Negative) 05/12/22 13:20 Discharge Plan Discharge Patient Disposition: Transfer to ED Clinical Impression: Nausea & vomiting, Acute hyponatremia, Acute hypokalemia, Difficulty swallowing solids, CHF (congestive heart failure), Abnormal weight loss Condition: Stable Prescriptions: No Action aspirin 325 mg tablet 325 mg PO DAILY PRN (Reason: Pain) potassium chloride 10 mEq capsule, extended release 20 meq PO DAILY Qty: 180 2RF Hold Instructions: Resume on 02/06/22. lisinopril 40 mg tablet 40 mg PO DAILY Qty: 90 3RF Hold Instructions: Resume on 02/06/22. metolazone 2.5 mg tablet 2.5 mg PO Q48H PRN (Reason: edema) Qty: 30 3RF Hold Instructions: Resume on 01/30/22. Rx Instructions: Take 30 minutes before lasix metoprolol tartrate 25 mg tablet 25 mg PO BID Qty: 60 6RF pantoprazole [Protonix] 40 mg tablet,delayed release (DR/EC) 40 mg PO BID 42 Days Qty: 84 0RF magnesium 30 mg Tablet 30 mg PO DAILY Hold Instructions: Resume on 01/30/22. bonbqwm-mgle-cntzk-oreg-capryl 100 mg-150 mg- 50 mg-150 mg Capsule 1 cap PO DAILY furosemide 40 mg tablet 40 mg PO DAILY ondansetron 4 mg tablet,disintegrating 4 mg PO TID PRN (Reason: Nausea And Vomiting) Referrals: Chelle Dumont PA [Primary Care Provider] - Coding Level of Care Code ED Scientific Research Associate for Chg Fwd Exam Detailed
[2022-05-12 10:50] LABS: Basophils % 0.3 %; Hematocrit 46.5 % (37.0-47.0); Hemoglobin 15.7 g/dL (11.5-15.3); Lymphocytes # 0.9 10^3/uL (0.8-4.8); Lymphocytes % 6.8 %; Mean Corpuscular HGB Conc 33.8 g/dL (30.0-36.0); Mean Corpuscular Hemoglobin 29.7 pg (28.0-34.0); Mean Corpuscular Volume 88.1 fl (81-99); Mean Platelet Volume 8.8 fL (7.4-10.4); Monocytes # 0.6 10^3/uL (0.2-0.9); Monocytes % 4.9 %; Neutrophils # 11.35 10^3/uL (1.8-7.7); Neutrophils % 87.2 %; Nucleated Red Blood Cells % 0 %; Platelet Count 228 10^3/cmm (130-400); Red Blood Count 5.28 10^6/uL (4.1-5.3); Red Cell Distribution Width 13.7 % (12.1-15.1)
[2022-05-12] MEDS: sodium chloride 0.9% 500 ML 125 ML IV ×2 (10:54→16:30)
[2022-05-12 11:26] LABS: Alanine Aminotransferase 16 U/L (0-33); Albumin Level 3.7 g/dL (3.5-5.2); Alkaline Phosphatase 90 U/L (35-105); Anion Gap 17.4 (5-19); Aspartate Amino Transferase 20 U/L (0-32); Blood Urea Nitrogen 10 mg/dL (8-23); Calcium 9.4 mg/dL (8.5-10.5); Carbon Dioxide 29 mmol/L (22-29); Chloride 92 mmol/L (98-107); Globulin 3.9 g/dL (1.3-4.6); Glucose 169 mg/dL (65-115); NT Pro B Type Natriuretic Pept 4472 pg/mL (0-450); Osmolality Calculated 283 mOsm/kg (285-295); Potassium 3.4 mmol/L (3.5-5.1); Sodium 135 mmol/L (136-145); Total Bilirubin 1.3 mg/dL (0.15-1.2); Total Protein 7.6 g/dL (6.6-8.7)
[2022-05-12] MEDS: potassium chloride premix 100 ML 50 MEQ IV (12:22)
[2022-05-12 13:11] VITALS: BP 130/78; PULSE 64; RESP 18; TEMP 36.6; O2SAT 93
[2022-05-12 13:27] LABS: Add Urine Microscopic? NO; Charge for UA Resulting for Rev
[2022-05-12 13:30] LABS: Bilirubin Urine 1+ (Negative); Blood Urine Neg (Negative); Glucose Urine UA Norm (Normal); Ketones Urine 1+ (Negative); Leukocyte Esterase Urine Negative (Negative); Nitrate Urine Negative (Negative); Protein Urine Neg (Negative); Urine Appearance Clear (CLEAR); Urine Color Yellow (Yellow); Urobilinogen Urine Norm (Negative); pH Urine 6.5 (5-7)
[2022-05-12] MEDS: FUROsemide 10 mg/mL SDV 2mL 20 MG IVP (13:58)
--- NOTE | 2022-05-12 14:28 | CTR_ITS ---
PROCEDURE INFORMATION: Exam: CT Head Without Contrast Exam date and time: 05/12/2022 2:34 PM Age: 82 years old Clinical indication: Altered mental status/memory loss; Confusion or disorientation; Additional info: AMS TECHNIQUE: Imaging protocol: Computed tomography of the head without contrast. Radiation optimization: All CT scans at this facility use at least one of these dose optimization techniques: automated exposure control; mA and/or kV adjustment per patient size (includes targeted exams where dose is matched to clinical indication); or iterative reconstruction. COMPARISON: No relevant prior studies available. RADIATION DOSE METRICS: Total DLP (mGy-cm): 1083.97 FINDINGS: Brain: No hemorrhage, mass effect or midline shift. No acute, major vascular distribution infarction identified. There is foci of decreased attenuation in the periventricular and subcortical white matter, likely representing chronic small vessel ischemic changes. Mild cerebral volume loss is present. No intra-axial or extra-axial fluid collection seen. Cerebral ventricles: No ventriculomegaly. Paranasal sinuses: Visualized sinuses are unremarkable. No fluid levels. Mastoid air cells: Visualized mastoid air cells are well aerated. Bones/joints: Unremarkable. No acute fracture. Soft tissues: Unremarkable. CT/CT head wo con* [id number] IMPRESSION: No acute intracranial abnormality.
[2022-05-12 16:17] VITALS: BP 155/60; O2SAT 100
[2022-05-12] MEDS: ondansetron 2 mg/ML SDV 2 mL 4 MG IVP (18:19)
[2022-05-12 18:31] VITALS: BP 143/65; PULSE 64; RESP 18; TEMP 36.6; O2SAT 100
[2022-05-12 19:07] VITALS: BP 155/60; PULSE 64; RESP 18; O2SAT 100
== END 2022-05-12 19:23 ==
PROVIDERS: Emergency Provider Physician Assistant; PCP Physician Assistant
DX: R13.10 Dysphagia, unspecified (principal); E87.1 Hypo-osmolality and hyponatremia; E87.6 Hypokalemia; R63.4 Abnormal weight loss; I11.0 Hypertensive heart disease with heart failure; I50.9 Heart failure, unspecified
CPT/HCPCS: 51702; 70450; 80053; 81003; 83880; 85025; 96361; 96374; 96375; 99285; J1940; J2405; J3480; J7040

== ENCOUNTER 2022-06-06 05:58 | Emergency (ER) | payer MEDICARE, OTHER, SELFPAY ==
[2022-06-06 06:03] VITALS: BP 163/47; PULSE 64; RESP 16; TEMP 36.5; O2SAT 94; BMI 29.7
--- NOTE | 2022-06-06 06:08 | ECG_ITS ---
[facility] Test Date: 2022-06-06 Pat Name: Tiffanie Rosas Department: Room: Gender: Female Capital Markets Specialist: : 1940 Requested By: Cameron Jenkins Order Number: [id number] Reading MD: Benigno Mccullough Measurements Intervals [place] Rate: 63 P: 46 [place]: 201 QRS: 46 QRSD: 134 T: 45 QT: 421 QTc: 434 Interpretive Statements SINUS RHYTHM RIGHT BUNDLE BRANCH BLOCK [120+ ms QRS DURATION, UPRIGHT V1, 40+ ms S IN I/aVL/V4/V5/V6] Compared to ECG 05/05/2022 22:07:37 Sinus bradycardia no longer present Electronically Signed On 06-06-2022 9:40:09 UTILITY AGENT by Benigno Mccullough [email or web address] f
[2022-06-06 06:09] VITALS: PULSE 64; RESP 16; O2SAT 94
--- NOTE | 2022-06-06 06:16 | XRR_ITS ---
PROCEDURE INFORMATION: Exam: XR Chest Exam date and time: 06/06/2022 7:32 AM Age: 82 years old Clinical indication: Other: AMS; Additional info: Dyspnea/cough TECHNIQUE: Imaging protocol: Radiologic exam of the chest. Views: 1 view. COMPARISON: CR (CHEST, ) 05/05/2022 8:33 PM FINDINGS: Lungs: Unremarkable. No consolidation. Pleural spaces: Unremarkable. No pleural effusion. No pneumothorax. Heart/Mediastinum: Unremarkable. No cardiomegaly. Bones/joints: Unremarkable. XR/XR chest 1V portable [id number] IMPRESSION: No acute findings.
--- NOTE | 2022-06-06 06:19 | W.ED.AMS ---
HPI - Altered Mental Status General: Chief Complaint: Altered Mental Status Stated Complaint: ams, combative at home Time Seen by Provider: 06/06/22 06:15 PFSH ED PFSH: Medical History CHF (congestive heart failure), NYHA class III GERD (gastroesophageal reflux disease) Hypertension Hyponatremia Leg swelling RBBB Swelling of lower leg Vomiting Surgical History Hx of section Hx of eye surgery lenses placed in bilat eyes Hx of hysterectomy Hx of knee surgery bilateral knee replacements Social History Smoking and tobacco status: never smoked Course Vital Signs: Vital signs: Vital Signs Temperature 97.7 F 06/06/22 06:03 Pulse Rate 64 06/06/22 06:09 Respiratory Rate 16 06/06/22 06:09 Blood Pressure 163/47 06/06/22 06:03 Pulse Oximetry 94 06/06/22 06:09 Oxygen Delivery Ny thod 06/06/22 06:09 Discharge Plan Discharge Condition: Stable Prescriptions: No Action potassium chloride 10 mEq capsule, extended release 20 meq PO DAILY Qty: 180 2RF Hold Instructions: Resume on 02/06/22. metolazone 2.5 mg tablet 2.5 mg PO Q48H PRN (Reason: edema) Qty: 30 3RF Hold Instructions: Resume on 01/30/22. Rx Instructions: Take 30 minutes before lasix metoprolol tartrate 25 mg tablet 25 mg PO BID Qty: 60 6RF pantoprazole [Protonix] 40 mg tablet,delayed release (DR/EC) 40 mg PO BID 42 Days Qty: 84 0RF magnesium 30 mg Tablet 30 mg PO DAILY Hold Instructions: Resume on 01/30/22. furosemide 40 mg tablet 40 mg PO DAILY Referrals: Chelle Dumont PA [Primary Care Provider] - Coding Level of Care Code ED Admissions Assistant for Jassong Fidel
--- NOTE | 2022-06-06 06:26 | ED_ITS ---
HPI - General Adult General: Chief complaint: Altered Mental Status Stated complaint: ams, combative at home Time Seen by Provider: 06/06/22 06:15 Source: family Mode of arrival: ambulatory Limitations: altered mental status History of Present Illness: 82-year-old female presents emergency room with her son with complaints of worsening dementia and at times becoming combative. The aggression is what triggered the ER visit this morning. She has had multiple visits in the last month with similar complaints centered around inability to manage her own cares and decreasing cognitive ability. Son also talks about possibly starting her on something for her dementia. No fever sweats or chills but she has had some increased cough recently. She is difficult to arouse during history and exam. Review of Systems General: Reports: ROS unobtainable due to mental status PFSH ED PFSH: Medical History CHF (congestive heart failure), NYHA class III GERD (gastroesophageal reflux disease) Hypertension Hyponatremia Leg swelling RBBB Swelling of lower leg Vomiting Surgical History Hx of section Hx of eye surgery lenses placed in bilat eyes Hx of hysterectomy Hx of knee surgery bilateral knee replacements Social History Smoking and tobacco status: never smoked Physical Exam 2 HENMT: COMMON NORMALS: normocephalic and atraumatic HEAD & SCALP: normocephalic and atraumatic Resp: COMMON NORMALS: normal respiratory effort, No retractions, No use of accessory muscles and clear to auscultation bilaterally AUSCULTATION: clear to auscultation bilaterally Cardio: COMMON NORMALS: regular rate, regular rhythm and No murmurs present (Cardio) RATE: regular rate RHYTHM: regular rhythm GI: COMMON NORMALS: Soft to palpation and No hepatosplenomegaly present AUSCULTATION: Yes normoactive bowel sounds PALPATION: Yes Soft to palpation, No Tenderness to palpation present (GI), No Guarding due to palpation present (GI) and Yes No hepatosplenomegaly present Extremity: COMMON NORMALS: normal to inspection, capillary refill normal, no clubbing, cyanosis or edema, no calf tenderness and no pedal edema Skin: COMMON NORMALS: no rashes or lesions noted GENERAL SKIN EXAM: no ra shes or lesions noted Course Vital Signs: Vital signs: Vital Signs Temperature 97.7 F 06/06/22 06:03 Pulse Rate 64 06/06/22 07:47 Respiratory Rate 16 06/06/22 06:48 Blood Pressure 133/52 06/06/22 07:47 Pulse Oximetry 98 06/06/22 07:47 Oxygen Delivery Me thod 06/06/22 07:47 MDM - General Adult Medical Decision Making Acute cystitis. She does not have fever and no white count elevation treat as an outpatient previously grew out E. coli susceptible to Cipro. We will give her a gram of Rocephin in the ER discharge home with Cipro 500 twice daily for 7 days. Follow-up with primary care to look at placement in snf or other medication changes for long-term care management of dementia. Medical Records I reviewed the patient's medical records. Lab Data I reviewed the patient's lab results. : 06/06/22 06:54 06/06/22 06:54 Radiology Impressions Chest X-Ray 06/06/22 06:16 IMPRESSION: No acute findings. Laboratory Results WBC 8.4 10^3/uL (4.0-10.0) 06/06/22 06:54 RBC 3.89 10^6/uL (4.1-5.3) L 06/06/22 06:54 Hgb 11.7 g/dL (11.5-15.3) 06/06/22 06:54 Hct 36.1 % (37.0-47.0) L 06/06/22 06:54 MCV 92.8 fl (81-99) 06/06/22 06:54 MCH 30.1 pg (28.0-34.0) 06/06/22 06:54 MCHC 32.4 g/dL (30.0-36.0) 06/06/22 06:54 RDW 15.5 % (12.1-15.1) H 06/06/22 06:54 Plt Count 215 10^3/cmm (130-400) 06/06/22 06:54 MPV 9.3 fL (7.4-10.4) 06/06/22 06:54 Neut % (Auto) 75.5 % 06/06/22 06:54 Lymph % (Auto) 15.1 % 06/06/22 06:54 [place] % (Auto) 7.1 % 06/06/22 06:54 Eos % (Auto) 1.4 % 06/06/22 06:54 Baso % (Auto) 0.5 % 06/06/22 06:54 Neut # (Auto) 6.36 10^3/uL (1.8-7.7) 06/06/22 06:54 Lymph # (Auto) 1.3 10^3/uL (0.8-4.8) 06/06/22 06:54 [place] # (Auto) 0.6 10^3/uL (0.2-0.9) 06/06/22 06:54 Eos # (Auto) 0.1 10^3/uL (0.0-0.8) 06/06/22 06:54 Baso # (Auto) 0.0 10^3/uL (0.0-0.1) 06/06/22 06:54 Nucleated RBC % (auto) 0 % 06/06/22 06:54 Nucleated RBCs # 0.0 /100WBC 06/06/22 06:54 Sodium 140 mmol/L (136-145) 06/06/22 06:54 Potassium 4.0 mmol/L (3.5-5.1) 06/06/22 06:54 Chloride 102 mmol/L (98-107) 06/06/22 06:54 Carbon Dioxide 28 mmol/L (22-29) 06/06/22 06:54 Anion Gap 14.0 (5-19) 06/06/22 06:54 BUN 16 mg/dL (8-23) 06/06/22 06:54 Creatinine 1.0 mg/dL (0.5-0.9) H 06/06/22 06:54 GFR Calculation Not Reportable 06/06/22 06:54 Glucose 108 mg/dL (65-115) 06/06/22 06:54 Calculated Osmolality 292 mOsm/kg (285-295) 06/06/22 06:54 Lactic Acid 2.2 mmol/L (0.5-2.2) 06/06/22 06:46 Calcium 9.0 mg/dL (8.5-10.5) 06/06/22 06:54 Total Bilirubin 0.6 mg/dL (0.15-1.2) 06/06/22 06:54 AST 22 U/L (0-32) 06/06/22 06:54 ALT 16 U/L (0-33) 06/06/22 06:54 Alkaline Phosphatase 75 U/L (35-105) 06/06/22 06:54 Ammonia 24 umol/L (11-51) 06/06/22 06:46 Creatine Kinase 66 U/L (26-192) 06/06/22 06:54 Total Protein 6.5 g/dL (6.6-8.7) L 06/06/22 06:54 Albumin 3.2 g/dL (3.5-5.2) L 06/06/22 06:54 Globulin 3.3 g/dL (1.3-4.6) 06/06/22 06:54 Urine Color Yellow (Yellow) 06/06/22 07:03 Urine Appearance Cloudy (CLEAR) A 06/06/22 07:03 Urine pH 8 (5-7) H 06/06/22 07:03 Ur Specific [place] 1.015 (1.005-1.030) 06/06/22 07:03 Urine Protein Neg (Negative) 06/06/22 07:03 Urine Glucose (UA) Norm (Normal) 06/06/22 07:03 Urine Ketones Negative (Negative) 06/06/22 07:03 Urine Blood 2+ (Negative) H 06/06/22 07:03 Urine Nitrate Positive (Negative) H 06/06/22 07:03 Urine Bilirubin Neg (Negative) 06/06/22 07:03 Prot Sulfosalicylic Acd Negative (Negative) 06/06/22 07:03 Urine Urobilinogen Norm mg/dL (Negative) 06/06/22 07:03 Ur Leukocyte Esterase 2+ (Negative) H 06/06/22 07:03 Urine RBC 0-4 /hpf (0-2) H 06/06/22 07:03 Urine WBC >100 /hpf (0-5) H 06/06/22 07:03 Ur Squamous Epith Cells 0-4 /hpf (0-5) H 06/06/22 07:03 Amorphous Sediment Not Reportable 06/06/22 07:03 Urine Bacteria 2+ /hpf (NONE) H 06/06/22 07:03 Serum Ketones Negative (Negative) 06/06/22 06:54 Discharge Plan Discharge Patient Disposition: Home Clinical Impression: Cystitis, Dementia Condition: Stable Prescriptions: New Cipro 500 mg tablet 500 mg PO Q12H Qty: 14 0RF No Action potassium chloride 10 mEq capsule, extended release 20 meq PO DAILY Qty: 180 2RF Hold Instructions: Resume on 02/06/22. metoprolol tartrate 25 mg tablet 25 mg PO BID Qty: 60 6RF pantoprazole [Protonix] 40 mg tablet,delayed release (DR/EC) 40 mg PO BID 42 Days Qty: 84 0RF metoclopramide HCl 5 mg tablet 5 mg PO QID PRN (Reason: Nausea And Vomiting) magnesium oxide 400 mg magnesium Tablet 400 mg PO DAILY furosemide 40 mg tablet 40 mg PO DAILY Rx Instructions: may take extra 1/2 tab (20mg) once a day if needed Discharge Orders: Discharge ED (Routine); Ordered 06/06/22 Ordered By: Cameron Xiong Referrals: Chelle Dumont PA [Primary Care Provider] - Discharge Diet: Usual diet Discharge Activity: Increase activity as tolerated Patient Instructions: Opioid Safety, Pain Management Activity Restrictions/Additional Instructions: Follow-up with your primary care doctor if not improving. Coding Level of Care Code ED It Consulting Director for [facility] Fwd Exam Detailed
[2022-06-06 06:48] VITALS: BP 99/44; PULSE 57; RESP 16; O2SAT 95
[2022-06-06 07:06] LABS: Basophils % 0.5 %; Eosinophils # 0.1 10^3/uL (0.0-0.8); Eosinophils % 1.4 %; Hematocrit 36.1 % (37.0-47.0); Hemoglobin 11.7 g/dL (11.5-15.3); Lymphocytes # 1.3 10^3/uL (0.8-4.8); Lymphocytes % 15.1 %; Mean Corpuscular HGB Conc 32.4 g/dL (30.0-36.0); Mean Corpuscular Hemoglobin 30.1 pg (28.0-34.0); Mean Corpuscular Volume 92.8 fl (81-99); Mean Platelet Volume 9.3 fL (7.4-10.4); Monocytes # 0.6 10^3/uL (0.2-0.9); Monocytes % 7.1 %; Neutrophils # 6.36 10^3/uL (1.8-7.7); Neutrophils % 75.5 %; Nucleated Red Blood Cells % 0 %; Platelet Count 215 10^3/cmm (130-400); Red Blood Count 3.89 10^6/uL (4.1-5.3); Red Cell Distribution Width 15.5 % (12.1-15.1); White Blood Count 8.4 10^3/uL (4.0-10.0)
[2022-06-06 07:25] LABS: Ketone (Acetest) Serum Negative (Negative)
[2022-06-06 07:26] LABS: Lactic Sepsis W/Reflex 2.2 mmol/L (0.5-2.2)
[2022-06-06 07:27] VITALS: PULSE 60; O2SAT 97
[2022-06-06 07:27] LABS: Alanine Aminotransferase 16 U/L (0-33); Albumin Level 3.2 g/dL (3.5-5.2); Alkaline Phosphatase 75 U/L (35-105); Aspartate Amino Transferase 22 U/L (0-32); Blood Urea Nitrogen 16 mg/dL (8-23); Carbon Dioxide 28 mmol/L (22-29); Chloride 102 mmol/L (98-107); Creatine Phosphokinase 66 U/L (26-192); Globulin 3.3 g/dL (1.3-4.6); Glucose 108 mg/dL (65-115); Osmolality Calculated 292 mOsm/kg (285-295); Sodium 140 mmol/L (136-145); Total Bilirubin 0.6 mg/dL (0.15-1.2); Total Protein 6.5 g/dL (6.6-8.7)
[2022-06-06 07:28] LABS: Ammonia 24 umol/L (11-51)
[2022-06-06 07:47] VITALS: BP 133/52; PULSE 64; O2SAT 98
[2022-06-06 07:58] LABS: Add Urine Microscopic? YES; Bilirubin Urine Neg (Negative); Blood Urine 2+ (Negative); Glucose Urine UA Norm (Normal); Ketones Urine Negative (Negative); Leukocyte Esterase Urine 2+ (Negative); Nitrate Urine Positive (Negative); Protein Urine Neg (Negative); Specific Gravity, Urine 1.015 (1.005-1.030); Urine Appearance Cloudy (CLEAR); Urine Color Yellow (Yellow); Urobilinogen Urine Norm (Negative); pH Urine 8 (5-7)
[2022-06-06 08:11] LABS: Add Urine Culture? Yes; Bacteria Urine 2+ /hpf; RBC Urine 0-4 /hpf (0-2); Squamous Epithelial Cell Urine 0-4 /hpf (0-5); Sulfosalicylic Acid Urine Negative (Negative); WBC Urine >100 /hpf (0-5)
[2022-06-06 08:39] VITALS: BP 135/62; PULSE 60; O2SAT 97
[2022-06-06 08:48] LABS: Reflex Lactate Order REFLEX LACTIC ORDERD
== END 2022-06-06 08:30 | disposition home or self-care (01) ==
PROVIDERS: Emergency Provider Family Medicine; PCP Physician Assistant
DX: F03.90 Unspecified dementia, unspecified severity, without behavioral disturbance, psychotic disturbance, mood disturbance, and anxiety (principal); N30.90 Cystitis, unspecified without hematuria; I11.0 Hypertensive heart disease with heart failure; I50.9 Heart failure, unspecified
CPT/HCPCS: 36415; 71045; 80053; 81001; 82009; 82140; 82550; 83605; 85025; 87077; 87086; 87186; 93005; 99285

== ENCOUNTER → 2022-06-21 10:46 | Outpatient (BNVA) | payer MEDICARE, OTHER, SELFPAY | PROVIDERS: PCP Physician Assistant; Visit Provider Internal Medicine Cardiovascular Disease | DX: I35.0 Nonrheumatic aortic (valve) stenosis (principal); I11.0 Hypertensive heart disease with heart failure; I50.9 Heart failure, unspecified; I45.10 Unspecified right bundle-branch block; K21.9 Gastro-esophageal reflux disease without esophagitis | CPT/HCPCS: 99214 ==

== ENCOUNTER → 2022-12-20 10:58 | Outpatient (BNVA) | payer MEDICARE, OTHER, SELFPAY | PROVIDERS: PCP Physician Assistant; Visit Provider Internal Medicine Cardiovascular Disease | DX: I35.0 Nonrheumatic aortic (valve) stenosis (principal); I11.0 Hypertensive heart disease with heart failure; I50.9 Heart failure, unspecified; I45.10 Unspecified right bundle-branch block; K21.9 Gastro-esophageal reflux disease without esophagitis | CPT/HCPCS: 99214 ==

== ENCOUNTER 2023-01-25 11:51 | Outpatient (CLI) | payer MEDICARE, OTHER, SELFPAY ==
--- NOTE | 2023-01-25 12:15 | USCV_ITS ---
Tiffanie Rosas Age: 82 Gender: F : 1940 Exam Date: 01/25/2023 12:16 Ordering Phys: Vibha Cotter MD ([email or web address]) Technologist: Debby Radford Exam Location: [facility] [place] Indication: Aortic stenosis, BP: / HR: 61 Rhythm: Sinus Technical Quality: Adequate MEASUREMENTS (Male / Female) Normal Values 2D ECHO LV Diastolic Diameter PLAX 4.4 cm 4.2 - 5.9 / 3.9 - 5.3 cm LV Systolic Diameter PLAX 1.6 cm IVS Diastolic Thickness 1.8 cm 0.6 - 1.0 / 0.6 - 0.9 cm IVS Systolic Thickness 2.2 cm LVPW Diastolic Thickness 1.2 cm 0.6 - 1.0 / 0.6 - 0.9 cm LVPW Systolic Thickness 2.1 cm LVOT Diameter 2.0 cm LV Ejection Fraction 2D Teich 91.3 % LV Ejection Fraction MOD 2C 78.4 % LV Ejection Fraction 2C AL 77.5 % LA Diameter 2.9 cm LA Width 3.9 cm LA Height 6.8 cm RA Width 2.7 cm RA Height 5.2 cm Aorta at Sinotubular Diameter 2.9 cm IVC Diameter 1.2 cm M-MODE Aortic Annulus Diameter 2.9 cm LA Ao Ratio MM 1.1 MV E Point Septal Separation 0.8 cm DOPPLER AV Peak Velocity 436.7 cm/s LVOT Peak Velocity 205.0 cm/s AV Area Cont Eq vti 1.4 cm squared AV Area Cont Eq pk 1.5 cm squared MV Peak Velocity 106.0 cm/s MV Area PHT 2.7 cm squared Mitral E to A Ratio 0.6 MV E' Velocity 42.0 cm/s Mitral E to MV E' Ratio 15.2 Mitral E to LV E' Lateral Ratio 11.4 Mitral E to LV E' Septal Ratio 23.4 TR Peak Velocity 120.3 cm/s TR Peak Gradient 5.8 mmHg Right Atrial Pressure 5.0 mmHg Pulmonary Artery Systolic Pressu 10.8 mmHg PV Peak Velocity 124.0 cm/s RV Acceleration Time 0.1 s RV Ejection Time 0.3 s RV AcT/ET 0.4 FINDINGS Left Ventricle Normal left ventricular size, systolic function and increased wall thickness, with no regional wall motion abnormalities. Left ventricular ejection fraction is estimated at 70-75 %. Grade I diastolic dysfunction (abnormal relaxation filling pattern), normal to mildly elevated filling pressures. Right Ventricle Normal right ventricular size and systolic function. RVSP could not be calculated due to incomplete tricuspid regurgitation velocity profile. Right Atrium Normal right atrial size. Left Atrium Mildly increased left atrial size. Mitral Valve Mild mitral annular calcification. No mitral valve stenosis. No mitral valve regurgitation. Aortic Valve Aortic valve not well visualized. Possibly severe aortic valve stenosis, peak velocity 4.1 m/s, peak gradient 67 mm Hg, mean gradient 40 mmHg. Mild aortic valve regurgitation. Tricuspid Valve Structurally normal tricuspid valve. Pulmonic Valve Pulmonic valve not well visualized. No pulmonary valve stenosis. Pericardium No pericardial effusion. Aorta Normal size aortic root and proximal ascending aorta. IVC Normal IVC dimension with >50% respiratory change of the inferior vena cava. CONCLUSIONS 1. This is a technically difficult study. 2. Normal left ventricular size, systolic function and increased wall thickness, with no regional wall motion abnormalities. Left ventricular ejection fraction is estimated at 70-75 %. Grade I diastolic dysfunction (abnormal relaxation filling pattern), normal to mildly elevated filling pressures. 3. Possibly severe aortic valve stenosis, peak velocity 4.1 m/s, peak gradient 67 mm Hg, mean gradient 40 mmHg. Mild aortic valve regurgitation. 4. Direct comparison to 01/25/22 is not possible. Vibha Cotter MD (Electronically Signed) Final Date: 30 January 2023 16:31 S
== END 2023-01-25 11:52 | disposition home or self-care (01) ==
PROVIDERS: PCP Physician Assistant; Visit Provider Internal Medicine Cardiovascular Disease
DX: I35.0 Nonrheumatic aortic (valve) stenosis (principal); R06.02 Shortness of breath
CPT/HCPCS: 93306; 99214

== ENCOUNTER 2023-03-25 12:33 | Emergency (ER) | payer MEDICARE, OTHER, SELFPAY ==
[2023-03-25 12:41] VITALS: BP 144/65; PULSE 80; RESP 17; TEMP 36.6; O2SAT 96
--- NOTE | 2023-03-25 13:10 | XRR_ITS ---
PROCEDURE INFORMATION: Exam: XR Right Hand Exam date and time: 03/25/2023 1:53 PM Age: 82 years old Clinical indication: Injury or trauma; Fall; Blunt trauma (contusions or hematomas); Hand; Right TECHNIQUE: Imaging protocol: Radiologic exam of the right hand. Views: 3 or more views. COMPARISON: No relevant prior studies available. FINDINGS: Bones/joints: Bones are diffusely osteopenic. There is moderate to severe diffuse interphalangeal joint osteoarthritis. There is moderate 2nd and 3rd metacarpophalangeal joint space narrowing with small osteophytes and no erosions. There is moderate osteoarthritis at the 1st carpometacarpal joint and triscaphe joint. There is abnormal widening of the scapholunate interval measuring up to 4 mm. There is moderate radiolunate arthritis. There is abnormal volar rotation of the scaphoid relative to lunate. Assessment for scaphoid fracture is limited. There is moderate lateral subluxation of the distal 1st phalanx relative to proximal 1st phalanx at the interphalangeal joint. Soft tissues: Unremarkable. XR/XR hand RT min 3V* [id number] IMPRESSION: 1. No acute fracture. 2. Widening of the scapholunate interval with scapholunate dissociation, dorsal intercalated segment instability and scapholunate advanced collapse (SLAC wrist). 3. Severe osteoarthritis described above.
--- NOTE | 2023-03-25 13:10 | XRR_ITS ---
PROCEDURE INFORMATION: Exam: XR Cervical Spine Exam date and time: 03/25/2023 1:38 PM Age: 82 years old Clinical indication: Injury or trauma; Fall; Blunt trauma TECHNIQUE: Imaging protocol: Radiologic exam of the cervical spine. Views: 2 or 3 views. COMPARISON: CR XR chest 1V portable [id number] 06/06/2022 7:32 AM FINDINGS: Bones/joints: The cervical spine is visible through C6 on the lateral view. C7 is obscured. T1 is obscured. These levels remain obscured on the swimmer's view. Alignment in the visible portion of the cervical spine is normal. There is moderate disc degeneration at C5-C6. There is moderate multilevel facet spondylosis. No visible fracture. Soft tissues: Visible soft tissues are unremarkable. XR/XR cervical spine 3V* [id number] IMPRESSION: 1. No acute findings. 2. C6-C7 and C7-T1 are obscured. 3. Moderate cervical disc and facet degeneration. 4. Given the presence of cervical degenerative disease and obscuration of the lower cervical spine, significant fractures could be obscured on this exam and CT should be considered.
--- NOTE | 2023-03-25 13:10 | XRR_ITS ---
PROCEDURE INFORMATION: Exam: XR Right Wrist Exam date and time: 03/25/2023 2:00 PM Age: 82 years old Clinical indication: Injury or trauma; Fall; Blunt trauma (contusions or hematomas); Wrist; Right TECHNIQUE: Imaging protocol: Radiologic exam of the right wrist. Views: 3 or more views. COMPARISON: CR (UP EX, ) 03/25/2023 1:53 PM FINDINGS: Bones/joints: Bones are diffusely osteopenic. There is moderate osteoarthritis at the 1st carpometacarpal joint and triscaphe joint. There is abnormal widening of the scapholunate interval measuring up to 4 mm. There is moderate radiolunate arthritis. There is abnormal volar rotation of the scaphoid relative to lunate. Assessment for scaphoid fracture is limited. Soft tissues: Unremarkable. XR/XR wrist RT min 3V* [id number] IMPRESSION: 1. No acute findings. 2. Widening of the scapholunate interval with scapholunate dissociation, dorsal intercalated segment instability and scapholunate advanced collapse (SLAC wrist).
--- NOTE | 2023-03-25 13:11 | ECG_ITS ---
[facility] Test Date: 2023-03-25 Pat Name: Tiffanie Rosas Department: Room: Gender: Female Physicist [place]: : 1940 Requested By: Cameron Jenkins Order Number: [id number] Reading MD: Benigno Mccullough Measurements Intervals [place] Rate: 62 P: 0 MO: 0 QRS: 46 QRSD: 142 T: 56 QT: 406 QTc: 415 Interpretive Statements ATRIAL FIBRILLATION RIGHT BUNDLE BRANCH BLOCK [120+ ms QRS DURATION, UPRIGHT V1, 40+ ms S IN I/aVL/V4/V5/V6] Compared to ECG 06/06/2022 06:08:54 Sinus rhythm no longer present Electronically Signed On 03-25-2023 17:00:51 CDT by Benigno Mccullough [id number]
--- NOTE | 2023-03-25 13:11 | CTR_ITS ---
PROCEDURE INFORMATION: Exam: CT Head Without Contrast Exam date and time: 03/25/2023 2:06 PM Age: 82 years old Clinical indication: Injury or trauma; Fall; Blunt trauma (contusions or hematomas) TECHNIQUE: Imaging protocol: Computed tomography of the head without contrast. Radiation optimization: All CT scans at this facility use at least one of these dose optimization techniques: automated exposure control; mA and/or kV adjustment per patient size (includes targeted exams where dose is matched to clinical indication); or iterative reconstruction. REPORTING DATA: Count of CT and Cardiac NM exams in prior 12 months: This patient has received 2 known CTs and 0 known cardiac nuclear medicine studies in the 12 months prior to the current study. COMPARISON: CT head wo con* [id number] 05/12/2022 2:34 PM RADIATION DOSE METRICS: Total DLP (mGy-cm): 997.58 FINDINGS: Brain: There is diffuse cerebral atrophy and chronic microvascular white matter disease. There is no acute intracranial hemorrhage. Cerebral ventricles: There is mild ex vacuo dilation of the lateral ventricles. The basal cisterns are unremarkable. Paranasal sinuses: The paranasal sinuses are clear. Mastoid air cells: The mastoid air cells are clear. Bones/joints: The calvarium is intact. Soft tissues: The visible extracranial soft tissues are unremarkable. CT/CT head wo con* [id number] IMPRESSION: No acute intracranial abnormality.
--- NOTE | 2023-03-25 13:25 | W.ED.FALL ---
HPI - Fall General: Chief Complaint: Fall Stated Complaint: fall, face and hand injuries Time Seen by Provider: 03/25/23 13:10 Source: patient Mode of arrival: ambulatory History of Present Illness: 82-year-old female presents to the emergency room after a fall at home. She fell at home unattended she was found by her son around 230-3 a.m. she has a history of sniffing and aortic stenosis. She is looking at getting a TAVR. She has had some heart failure associated with it. She has no decompensated heart failure symptoms at this point but she did have the fall today. She she could not really explain what exactly happened. She has some moderate dementia. She has some bruising on the right side of her eye along the superior and inferior orbital ridge. MD complaint: fall Fall from: standing Fall witnessed: no Place fall occurred: home Loss of consciousness: Unsure Prolonged down time: yes Associated symptoms-after fall: Reports lightheadedness; Denies abdominal pain, chest pain, confusion, difficulty walking, headache(s), hematuria, neck pain, numbness, short of breath, vertigo or weakness Review of Systems Const: Denies: fever(s), chills, body aches, change in appetite, fatigue or malaise Card: Reports: lightheadedness and syncope; Denies: chest pain Resp: Denies: dyspnea, productive cough or non-productive cough GI: Reports: nausea and vomiting; Denies: abdominal pain : Reports: dysuria, urinary frequency and urinary urgency; Denies: hematuria Musc: Denies: neck pain Skin/Breast: Denies: rash or pruritus Neuro: Denies: headache(s), difficulty walking, vertigo or confusion PFSH ED PFSH: Medical History CHF (congestive heart failure), NYHA class III GERD (gastroesophageal reflux disease) Hypertension Hyponatremia Leg swelling RBBB Swelling of lower leg Vomiting Surgical History Hx of section Hx of eye surgery lenses placed in bilat eyes Hx of hysterectomy Hx of knee surgery bilateral knee replacements Social History Smoking and tobacco status: never smoked Physical Exam Const: GENERAL APPEARANCE: cooperative and comfortable ORIENTATION/CONSCIOUSNESS: Yes awake HENMT: COMMON NORMALS: normocephalic, atraumatic and hearing grossly normal bilaterally HEAD & SCALP: normocephalic and atraumatic Resp: COMMON NORMALS: normal respiratory effort, No retractions, No use of accessory muscles and clear to auscultation bilaterally AUSCULTATION: clear to auscultation bilaterally Cardio: COMMON NORMALS: regular rate and regular rhythm RATE: regular rate RHYTHM: regular rhythm HEART SOUNDS: Murmur heart sound present systolic Intensity: IV/ GI: COMMON NORMALS: Soft to palpation and No hepatosplenomegaly present AUSCULTATION: Yes normoactive bowel sounds PALPATION: Yes Soft to palpation, No Tenderness to palpation present (GI), No Guarding due to palpation present (GI) and Yes No hepatosplenomegaly present Extremity: COMMON NORMALS: normal to inspection, capillary refill normal, no clubbing, cyanosis or edema, no calf tenderness and no pedal edema Skin: COMMON NORMALS: no rashes or lesions noted GENERAL SKIN EXAM: no rashes or lesions noted Course Vital Signs: Vital signs: Vital Signs Temperature 97.8 F 03/25/23 12:41 Pulse Rate 54 L 03/25/23 16:00 Respiratory Rate 17 03/25/23 12:41 Blood Pressure 165/73 03/25/23 16:00 Pulse Oximetry 97 03/25/23 16:00 Oxygen Delivery Me thod Room Air 03/25/23 14:17 MDM - Fall Medical Decision Making Labs and imaging reviewed. No acute injury noted. Discharge home continue current meds.Follow up w PCP. Medical Records I reviewed the patient's medical records. Lab Data I reviewed the patient's lab results. 03/25/23 13:30 03/25/23 17:03 Radiology Impressions Cervical Spine X-Ray 03/25/23 13:10 IMPRESSION: 1. No acute findings. 2. C6-C7 and C7-T1 are obscured. 3. Moderate cervical disc and facet degeneration. 4. Given the presence of cervical degenerative disease and obscuration of the lower cervical spine, significant fractures could be obscured on this exam and CT should be considered. Hand X-Ray 03/25/23 13:10 IMPRESSION: 1. No acute fracture. 2. Widening of the scapholunate interval with scapholunate dissociation, dorsal intercalated segment instability and scapholunate advanced collapse (SLAC wrist). 3. Severe osteoarthritis described above. Wrist X-Ray 03/25/23 13:10 IMPRESSION: 1. No acute findings. 2. Widening of the scapholunate interval with scapholunate dissociation, dorsal intercalated segment instability and scapholunate advanced collapse (SLAC wrist). Head CT 03/25/23 13:11 IMPRESSION: No acute intracranial abnormality. Cervical Spine CT 03/25/23 14:46 IMPRESSION: No acute findings. Laboratory Results WBC 7.17 10^3/uL (3.29-11.43) 03/25/23 13:30 RBC 4.45 10^6/uL (3.85-5.65) 03/25/23 13:30 Hgb 13.20 g/dL (11.27-16.99) 03/25/23 13:30 Hct 42.1 % (36-47) 03/25/23 13:30 MCV 94.6 fl (85-98) 03/25/23 13:30 MCH 29.7 pg (27-33) 03/25/23 13:30 MCHC 31.4 g/dL (30-55) 03/25/23 13:30 RDW 14.3 % (12.1-15.1) 03/25/23 13:30 Plt Count 171 10^3/cmm (157-399) 03/25/23 13:30 MPV 9.5 fL (7.4-10.4) 03/25/23 13:30 Neut % (Auto) 67.0 % 03/25/23 13:30 Lymph % (Auto) 23.3 % 03/25/23 13:30 [place] % (Auto) 7.4 % 03/25/23 13:30 Eos % (Auto) 1.4 % 03/25/23 13:30 Baso % (Auto) 0.8 % 03/25/23 13:30 Neut # (Auto) 4.80 10^3/uL (1.8-7.7) 03/25/23 13:30 Lymph # (Auto) 1.7 10^3/uL (0.8-4.8) 03/25/23 13:30 [place] # (Auto) 0.5 10^3/uL (0.2-0.9) 03/25/23 13:30 Eos # (Auto) 0.1 10^3/uL (0.0-0.8) 03/25/23 13:30 Baso # (Auto) 0.1 10^3/uL (0.0-0.1) 03/25/23 13:30 Nucleated RBC % (auto) 0 % 03/25/23 13:30 Nucleated RBCs # 0.0 /100WBC 03/25/23 13:30 Sodium 145 mmol/L (136-145) 03/25/23 17:03 Potassium 3.8 mmol/L (3.5-5.1) 03/25/23 17:03 Chloride 108 mmol/L (98-107) H 03/25/23 17:03 Carbon Dioxide 29 mmol/L (22-29) 03/25/23 17:03 Anion Gap 11.8 (5-19) 03/25/23 17:03 BUN 23 mg/dL (8-23) 03/25/23 17:03 Creatinine 1.0 mg/dL (0.5-0.9) H 03/25/23 17:03 GFR Calculation Not Reportable 03/25/23 17:03 Glucose 104 mg/dL (65-115) 03/25/23 17:03 Calculated Osmolality 304 mOsm/kg (285-295) H 03/25/23 17:03 Calcium 9.1 mg/dL (8.5-10.5) 03/25/23 17:03 Total Bilirubin 1.0 mg/dL (0.15-1.2) 03/25/23 17:03 AST 15 U/L (0-32) 03/25/23 17:03 ALT 10 U/L (0-33) 03/25/23 17:03 Alkaline Phosphatase 65 U/L (35-105) 03/25/23 17:03 Total Protein 6.9 g/dL (6.6-8.7) 03/25/23 17:03 Albumin 3.8 g/dL (3.5-5.2) 03/25/23 17:03 Globulin 3.1 g/dL (1.3-4.6) 03/25/23 17:03 Urine Color Yellow (Yellow) 03/25/23 14:34 Urine Appearance Clear (CLEAR) 03/25/23 14:34 Urine pH 5 (5-7) 03/25/23 14:34 Ur Specific [place] 1.015 (1.005-1.030) 03/25/23 14:34 Urine Protein Neg (Negative) 03/25/23 14:34 Urine Glucose (UA) Norm (Normal) 03/25/23 14:34 Urine Ketones Negative (Negative) 03/25/23 14:34 Urine Blood Neg (Negative) 03/25/23 14:34 Urine Nitrate Negative (Negative) 03/25/23 14:34 Urine Bilirubin Neg (Negative) 03/25/23 14:34 Urine Urobilinogen Norm mg/dL (Negative) 03/25/23 14:34 Ur Leukocyte Esterase Negative (Negative) 03/25/23 14:34 Discharge Plan Discharge Patient Disposition: Home Clinical Impression: Fall, Aortic stenosis Condition: Stable Prescriptions: No Action furosemide 40 mg tablet 40 mg PO DAILY Qty: 135 2RF metoprolol tartrate 25 mg tablet 25 mg PO BID Qty: 60 6RF Brain Supplement 1 tab PO DAILY Cranberry Concentrate 140-100 mg Capsule 1 cap PO DAILY Rl-600 With Vitamin D 600 mg-5 mcg (200 unit) Tablet 2 tab PO DAILY Acetaminophen Pain Relief 500 mg Tablet 1,000 mg PO Q6H PRN (Reason: Pain) potassium chloride 20 mEq tablet,ER particles/crystals 20 meq PO DAILY Green Tea Capsule 1 cap PO DAILY garlic 200 mg Tablet 200 mg PO DAILY Discharge Orders: Discharge ED (Routine); Ordered 03/25/23 Ordered By: Cameron Xiong Referrals: Chelle Dumont PA [Primary Care Provider] - Discharge Diet: Usual diet Discharge Activity: Resume usual activity Patient Instructions: Opioid Safety, Pain Management Coding Level of Care Code ED Associate Professor Of Forestry for Candis Parra
[2023-03-25 13:58] LABS: Basophils # 0.1 10^3/uL (0.0-0.1); Basophils % 0.8 %; Eosinophils # 0.1 10^3/uL (0.0-0.8); Eosinophils % 1.4 %; Hematocrit 42.1 % (36-47); Lymphocytes # 1.7 10^3/uL (0.8-4.8); Lymphocytes % 23.3 %; Mean Corpuscular HGB Conc 31.4 g/dL (30-55); Mean Corpuscular Hemoglobin 29.7 pg (27-33); Mean Corpuscular Volume 94.6 fl (85-98); Mean Platelet Volume 9.5 fL (7.4-10.4); Monocytes # 0.5 10^3/uL (0.2-0.9); Monocytes % 7.4 %; Nucleated Red Blood Cells % 0 %; Platelet Count 171 10^3/cmm (157-399); Red Blood Count 4.45 10^6/uL (3.85-5.65); Red Cell Distribution Width 14.3 % (12.1-15.1); White Blood Count 7.17 10^3/uL (3.29-11.43)
[2023-03-25 14:17] VITALS: BP 145/60; PULSE 68; O2SAT 95
--- NOTE | 2023-03-25 14:46 | CTR_ITS ---
PROCEDURE INFORMATION: Exam: CT Cervical Spine Without Contrast Exam date and time: 03/25/2023 3:16 PM Age: 82 years old Clinical indication: Injury or trauma; Fall; Blunt trauma TECHNIQUE: Imaging protocol: Computed tomography of the cervical spine without contrast. Radiation optimization: All CT scans at this facility use at least one of these dose optimization techniques: automated exposure control; mA and/or kV adjustment per patient size (includes targeted exams where dose is matched to clinical indication); or iterative reconstruction. REPORTING DATA: Count of CT and Cardiac NM exams in prior 12 months: This patient has received 2 known CTs and 0 known cardiac nuclear medicine studies in the 12 months prior to the current study. COMPARISON: CR XR cervical spine 3V* [id number] 03/25/2023 1:38 PM RADIATION DOSE METRICS: Total DLP (mGy-cm): 178.64 FINDINGS: Bones/joints: No acute fracture. Normal alignment. No significant disc bulge or herniation. No severe spinal canal stenosis. Lungs: Lung apices are normal. Soft tissues: Unremarkable. CT/CT cervical spin wo con* [id number] IMPRESSION: No acute findings.
[2023-03-25 14:55] LABS: Add Urine Microscopic? NO; Charge for UA Resulting for Rev
[2023-03-25 15:02] LABS: Bilirubin Urine Neg (Negative); Blood Urine Neg (Negative); Glucose Urine UA Norm (Normal); Ketones Urine Negative (Negative); Leukocyte Esterase Urine Negative (Negative); Nitrate Urine Negative (Negative); Protein Urine Neg (Negative); Specific Gravity, Urine 1.015 (1.005-1.030); Urine Appearance Clear (CLEAR); Urine Color Yellow (Yellow); Urobilinogen Urine Norm (Negative); pH Urine 5 (5-7)
[2023-03-25 16:00] VITALS: BP 165/73; PULSE 54; O2SAT 97
[2023-03-25 17:29] LABS: Alanine Aminotransferase 10 U/L (0-33); Albumin Level 3.8 g/dL (3.5-5.2); Alkaline Phosphatase 65 U/L (35-105); Anion Gap 11.8 (5-19); Aspartate Amino Transferase 15 U/L (0-32); Blood Urea Nitrogen 23 mg/dL (8-23); Calcium 9.1 mg/dL (8.5-10.5); Carbon Dioxide 29 mmol/L (22-29); Chloride 108 mmol/L (98-107); Globulin 3.1 g/dL (1.3-4.6); Glucose 104 mg/dL (65-115); Osmolality Calculated 304 mOsm/kg (285-295); Potassium 3.8 mmol/L (3.5-5.1); Sodium 145 mmol/L (136-145); Total Protein 6.9 g/dL (6.6-8.7)
== END 2023-03-25 17:52 | disposition home or self-care (01) ==
PROVIDERS: Emergency Provider Family Medicine; PCP Physician Assistant
DX: I35.0 Nonrheumatic aortic (valve) stenosis (principal); I11.0 Hypertensive heart disease with heart failure; I50.9 Heart failure, unspecified; S00.83XA Contusion of other part of head, initial encounter; W19.XXXA Unspecified fall, initial encounter
CPT/HCPCS: 36415; 70450; 72040; 72125; 73110; 73130; 80053; 81003; 85025; 93005; 99285

== ENCOUNTER → 2023-05-08 12:53 | Outpatient (BNVA) | payer MEDICARE, OTHER, SELFPAY | PROVIDERS: PCP Physician Assistant; Visit Provider Nurse Practitioner Family | DX: L89.312 Pressure ulcer of right buttock, stage 2 (principal); L89.322 Pressure ulcer of left buttock, stage 2 | CPT/HCPCS: 97597; 99213 ==

== ENCOUNTER → 2023-05-15 08:06 | Outpatient (BNVA) | payer MEDICARE, OTHER, SELFPAY | PROVIDERS: PCP Physician Assistant; Visit Provider Nurse Practitioner Family | DX: I96 Gangrene, not elsewhere classified (principal); L89.312 Pressure ulcer of right buttock, stage 2; L89.322 Pressure ulcer of left buttock, stage 2 | CPT/HCPCS: 97597; A6212 ==

== ENCOUNTER → 2023-05-22 07:53 | Outpatient (BNVA) | payer MEDICARE, OTHER, SELFPAY | PROVIDERS: PCP Physician Assistant; Visit Provider Nurse Practitioner Family | DX: L89.322 Pressure ulcer of left buttock, stage 2 (principal); Z09 Encounter for follow-up examination after completed treatment for conditions other than malignant neoplasm | CPT/HCPCS: 97597 ==

== ENCOUNTER → 2023-05-29 08:00 | Outpatient (BNVA) | payer MEDICARE, OTHER, SELFPAY | PROVIDERS: PCP Physician Assistant; Visit Provider Nurse Practitioner Family | DX: Z09 Encounter for follow-up examination after completed treatment for conditions other than malignant neoplasm (principal); Z87.2 Personal history of diseases of the skin and subcutaneous tissue | CPT/HCPCS: 99212 ==

== ENCOUNTER 2023-06-02 08:01 | Emergency (ER) | payer MEDICARE, OTHER, SELFPAY ==
[2023-06-02 08:09] VITALS: BP 179/94; PULSE 76; RESP 18; TEMP 36.4; O2SAT 95; BMI 28.3
--- NOTE | 2023-06-02 08:20 | CTR_ITS ---
PROCEDURE INFORMATION: Exam: CT Head Without Contrast Exam date and time: 06/02/2023 8:53 AM Age: 83 years old Clinical indication: Injury or trauma; Fall; Blunt trauma (contusions or hematomas); Additional info: Head injury TECHNIQUE: Imaging protocol: Computed tomography of the head without contrast. Radiation optimization: All CT scans at this facility use at least one of these dose optimization techniques: automated exposure control; mA and/or kV adjustment per patient size (includes targeted exams where dose is matched to clinical indication); or iterative reconstruction. REPORTING DATA: Count of CT and Cardiac NM exams in prior 12 months: This patient has received 2 known CTs and 0 known cardiac nuclear medicine studies in the 12 months prior to the current study. COMPARISON: CT head wo con* [id number] 03/25/2023 2:06 PM RADIATION DOSE METRICS: Total DLP (mGy-cm): 901.3 FINDINGS: Brain: There is mild small vessel disease. There is no evidence of acute parenchymal hemorrhage, extra-axial collection, or acute infarction. There is no mass effect, midline shift, or downward herniation. Cerebral ventricles: No ventriculomegaly. Paranasal sinuses: Visualized sinuses are unremarkable. No fluid levels. Mastoid air cells: Visualized mastoid air cells are well aerated. Bones/joints: Unremarkable. No acute fracture. Soft tissues: Unremarkable. CT/CT head wo con* [id number] IMPRESSION: Mild small vessel disease. No evidence of acute intracranial process.
--- NOTE | 2023-06-02 08:20 | CTR_ITS ---
PROCEDURE INFORMATION: Exam: CT Cervical Spine Without Contrast Exam date and time: 06/02/2023 8:53 AM Age: 83 years old Clinical indication: Injury or trauma; Fall; Blunt trauma; Additional info: Fall, head injury TECHNIQUE: Imaging protocol: Computed tomography of the cervical spine without contrast. Radiation optimization: All CT scans at this facility use at least one of these dose optimization techniques: automated exposure control; mA and/or kV adjustment per patient size (includes targeted exams where dose is matched to clinical indication); or iterative reconstruction. REPORTING DATA: Count of CT and Cardiac NM exams in prior 12 months: This patient has received 2 known CTs and 0 known cardiac nuclear medicine studies in the 12 months prior to the current study. COMPARISON: CT cervical spin wo con* [id number] 03/25/2023 3:16 PM RADIATION DOSE METRICS: Total DLP (mGy-cm): 621.9 FINDINGS: Bones/joints: No acute fracture. There is straightening of cervical lordosis. There is grade 1 anterolisthesis of C4 on C5 and T2 on T3. There is [id number] multilevel degenerative disc disease. The spinal canal appears patent. Lungs: Lung apices are normal. Soft tissues: Unremarkable. CT/CT cervical spin wo con* [id number] IMPRESSION: No acute findings.
[2023-06-02 08:35] LABS: Basophils % 0.4 %; Eosinophils % 0.4 %; Hematocrit 43.6 % (36-47); Lymphocytes # 1.3 10^3/uL (0.8-4.8); Lymphocytes % 18.5 %; Mean Corpuscular HGB Conc 32.8 g/dL (30-55); Mean Corpuscular Hemoglobin 29.4 pg (27-33); Mean Corpuscular Volume 89.5 fl (85-98); Mean Platelet Volume 8.7 fL (7.4-10.4); Monocytes # 0.3 10^3/uL (0.2-0.9); Monocytes % 4.7 %; Neutrophils % 75.6 %; Nucleated Red Blood Cells % 0 %; Platelet Count 226 10^3/cmm (157-399); Red Blood Count 4.87 10^6/uL (3.85-5.65); Red Cell Distribution Width 14.5 % (12.1-15.1); White Blood Count 7.02 10^3/uL (3.29-11.43)
[2023-06-02 08:55] LABS: Alanine Aminotransferase 21 U/L (0-33); Alkaline Phosphatase 102 U/L (35-105); Anion Gap 13.8 (5-19); Aspartate Amino Transferase 21 U/L (0-32); Blood Urea Nitrogen 33 mg/dL (8-23); Calcium 9.5 mg/dL (8.5-10.5); Carbon Dioxide 27 mmol/L (22-29); Chloride 103 mmol/L (98-107); Globulin 3.8 g/dL (1.3-4.6); Glucose 203 mg/dL (65-115); Osmolality Calculated 303 mOsm/kg (285-295); Potassium 3.8 mmol/L (3.5-5.1); Sodium 140 mmol/L (136-145); Total Bilirubin 0.5 mg/dL (0.15-1.2); Total Protein 7.8 g/dL (6.6-8.7)
[2023-06-02 09:10] VITALS: BP 146/73; PULSE 71; RESP 18; O2SAT 98
--- NOTE | 2023-06-02 09:11 | PC.NURSE ---
PATIENT HYGIENE PERFORMED. PATIENT FACE CUT CLEANED UP AND WARM BATH WIPES CLEANED PATIENT SKIN. PATIENT GIVEN BRIEF AND WARMED BLANKETS. PATIENT HAS NO FURTHER NEEDS AT THIS TIME.
[2023-06-02 09:36] LABS: Add Urine Microscopic? NO; Charge for UA Resulting for Rev
[2023-06-02 09:40] LABS: Bilirubin Urine Neg (Negative); Blood Urine Neg (Negative); Glucose Urine UA Trace (Normal); Ketones Urine Negative (Negative); Leukocyte Esterase Urine Negative (Negative); Nitrate Urine Negative (Negative); Protein Urine Neg (Negative); Urine Appearance Clear (CLEAR); Urine Color Yellow (Yellow); Urobilinogen Urine Norm (Negative); pH Urine 5 (5-7)
--- NOTE | 2023-06-02 09:56 | W.ED.AMS ---
HPI - Altered Mental Status General: Chief Complaint: Altered Mental Status Stated Complaint: fall, head injury Time Seen by Provider: 06/02/23 08:14 History of Present Illness: This patient is an 83-year-old white female who presents with her son for evaluation after falling outside. Her son found her outside on the ground this morning. She has been confused this morning. She is sleepy. She did strike her head. Patient does not complain of pain anywhere. History was obtained from her son who is her public relations associate. He states she does have a history of congestive heart failure, hypertension and dementia. She has wandered off in the past. She is not on any blood thinners. Review of Systems General: Reports: 10 or more systems reviewed and unremarkable except in HPI and below Neuro: Reports: frequent falls and confusion [facility] ED PFSH: Medical History CHF (congestive heart failure), NYHA class III GERD (gastroesophageal reflux disease) Hypertension Hyponatremia Leg swelling RBBB Swelling of lower leg Vomiting Surgical History Hx of section Hx of eye surgery lenses placed in bilat eyes Hx of hysterectomy Hx of knee surgery bilateral knee replacements Social History Smoking and tobacco/nicotine status: never used tobacco/nicotine Physical Exam Narrative: Patient is sleepy but does wake up and responds to questions. She is oriented to person but not place or time. Const: COMMON NORMALS: no acute distress EXAM LIMITATIONS: altered mental status GENERAL APPEARANCE: cooperative and disheveled ORIENTATION/CONSCIOUSNESS: Yes confused OTHER: Patient is confused but patient's son states this is normal. She does have dementia. HENMT: HEAD & SCALP: abrasion (Vertical abrasion over the right central forehead.) Eye: COMMON NORMALS: Equal, round and reactive pupils present, EOMs intact bilaterally and conjunctivae normal CONJUNCTIVA: Yes conjunctivae normal PUPIL: Yes Equal, round and reactive pupils present Neck/C-Spine: COMMON NORMALS: supple Chest: COMMONS NORMALS: normal inspection of the chest Resp: COMMON NORMALS: clear to auscultation bilaterally EFFORT & INSPECTION: Yes symmetric chest movement AUSCULTATION: clear to auscultation bilaterally Cardio: COMMON NORMALS: regular rate, regular rhythm and Peripheral pulses 2+ throughout RATE: regular rate RHYTHM: regular rhythm PERIPHERAL PULSES: Peripheral pulses 2+ throughout GI: COMMON NORMALS: Normal to inspection, nondistended, normoactive bowel sounds present, Soft to palpation, non-tender, No hepatosplenomegaly present and no masses AUSCULTATION: Yes normoactive bowel sounds PALPATION: Yes Soft to palpation and Yes No hepatosplenomegaly present RECTAL EXAM: deferred Extremity: COMMON NORMALS: no clubbing, cyanosis or edema and no pedal edema Urinary Catheter Management: Brady: Cath Placed During This Visit: no Reason for Continuing Indwelling Catheter: Accurate Measurement of Urinary Output in Critically Ill Patients Course Vital Signs: Vital signs: Vital Signs Temperature 97.6 F 06/02/23 08:09 Pulse Rate 71 06/02/23 09:10 Respiratory Rate 18 06/02/23 09:10 Blood Pressure 146/73 06/02/23 09:10 Pulse Oximetry 98 06/02/23 09:10 Oxygen Delivery Me thod Room Air 06/02/23 09:10 MDM - Altered Mental Status Medical Decision Making Head CT and cervical spine CT read by the radiologist as normal. CBC and CMP were normal. Urine analysis normal. Patient's wound over the forehead was cleaned by nursing staff and dressed with antibiotic ointment. All of the results were discussed with her son. Patient was discharged with her son in stable condition. Follow-up with primary care physician as needed. Lab Data 06/02/23 08:30 06/02/23 08:30 Radiology Impressions Cervical Spine CT 06/02/23 08:20 IMPRESSION: No acute findings. Head CT 06/02/23 08:20 IMPRESSION: Mild small vessel disease. No evidence of acute intracranial process. Laboratory Results WBC 7.02 10^3/uL (3.29-11.43) 06/02/23 08:30 RBC 4.87 10^6/uL (3.85-5.65) 06/02/23 08:30 Hgb 14.30 g/dL (11.27-16.99) 06/02/23 08:30 Hct 43.6 % (36-47) 06/02/23 08:30 MCV 89.5 fl (85-98) 06/02/23 08:30 MCH 29.4 pg (27-33) 06/02/23 08:30 MCHC 32.8 g/dL (30-55) 06/02/23 08:30 RDW 14.5 % (12.1-15.1) 06/02/23 08:30 Plt Count 226 10^3/cmm (157-399) 06/02/23 08:30 MPV 8.7 fL (7.4-10.4) 06/02/23 08:30 Neut % (Auto) 75.6 % 06/02/23 08:30 Lymph % (Auto) 18.5 % 06/02/23 08:30 [place] % (Auto) 4.7 % 06/02/23 08:30 Eos % (Auto) 0.4 % 06/02/23 08:30 Baso % (Auto) 0.4 % 06/02/23 08:30 Neut # (Auto) 5.30 10^3/uL (1.8-7.7) 06/02/23 08:30 Lymph # (Auto) 1.3 10^3/uL (0.8-4.8) 06/02/23 08:30 [place] # (Auto) 0.3 10^3/uL (0.2-0.9) 06/02/23 08:30 Eos # (Auto) 0.0 10^3/uL (0.0-0.8) 06/02/23 08:30 Baso # (Auto) 0.0 10^3/uL (0.0-0.1) 06/02/23 08:30 Nucleated RBC % (auto) 0 % 06/02/23 08:30 Nucleated RBCs # 0.0 /100WBC 06/02/23 08:30 Sodium 140 mmol/L (136-145) 06/02/23 08:30 Potassium 3.8 mmol/L (3.5-5.1) 06/02/23 08:30 Chloride 103 mmol/L (98-107) 06/02/23 08:30 Carbon Dioxide 27 mmol/L (22-29) 06/02/23 08:30 Anion Gap 13.8 (5-19) 06/02/23 08:30 BUN 33 mg/dL (8-23) H 06/02/23 08:30 Creatinine 1.1 mg/dL (0.5-0.9) H 06/02/23 08:30 GFR Calculation Not Reportable 06/02/23 08:30 Glucose 203 mg/dL (65-115) H 06/02/23 08:30 Calculated Osmolality 303 mOsm/kg (285-295) H 06/02/23 08:30 Calcium 9.5 mg/dL (8.5-10.5) 06/02/23 08:30 Total Bilirubin 0.5 mg/dL (0.15-1.2) 06/02/23 08:30 AST 21 U/L (0-32) 06/02/23 08:30 ALT 21 U/L (0-33) 06/02/23 08:30 Alkaline Phosphatase 102 U/L (35-105) 06/02/23 08:30 Total Protein 7.8 g/dL (6.6-8.7) 06/02/23 08:30 Albumin 4.0 g/dL (3.5-5.2) 06/02/23 08:30 Globulin 3.8 g/dL (1.3-4.6) 06/02/23 08:30 Urine Color Yellow (Yellow) 06/02/23 09:08 Urine Appearance Clear (CLEAR) 06/02/23 09:08 Urine pH 5 (5-7) 06/02/23 09:08 Ur Specific [place] 1.020 (1.005-1.030) 06/02/23 09:08 Urine Protein Neg (Negative) 06/02/23 09:08 Urine Glucose (UA) Trace (Normal) H 06/02/23 09:08 Urine Ketones Negative (Negative) 06/02/23 09:08 Urine Blood Neg (Negative) 06/02/23 09:08 Urine Nitrate Negative (Negative) 06/02/23 09:08 Urine Bilirubin Neg (Negative) 06/02/23 09:08 Urine Urobilinogen Norm mg/dL (Negative) 06/02/23 09:08 Ur Leukocyte Esterase Negative (Negative) 06/02/23 09:08 All radiology interpretation(s) finalized by discharge Discharge Plan Discharge Patient Disposition: Home Clinical Impression: Fall, Dementia, Head injury, Abrasion of forehead Condition: Stable Prescriptions: No Action furosemide 40 mg tablet 40 mg PO DAILY Qty: 135 2RF metoprolol tartrate 25 mg tablet 25 mg PO BID Qty: 60 6RF Brain Supplement 1 tab PO DAILY sulfamethoxazole-trimethoprim [Bactrim DS] 800-160 mg tablet 1 tab PO BID 10 Days Qty: 20 0RF Cranberry Concentrate 140-100 mg Capsule 1 cap PO DAILY Rl-600 With Vitamin D 600 mg-5 mcg (200 unit) Tablet 2 tab PO DAILY Acetaminophen Pain Relief 500 mg Tablet 1,000 mg PO Q6H PRN (Reason: Pain) potassium chloride 20 mEq tablet,ER particles/crystals 20 meq PO DAILY Green Tea Capsule 1 cap PO DAILY garlic 200 mg Tablet 200 mg PO DAILY Discharge Orders: Discharge ED (Routine); Ordered 06/02/23 Ordered By: Taras Griffin Referrals: Chelle Dumont PA [Primary Care Provider] - Patient Instructions: Hyponatremia (ED), Benzodiazepine Use Disorder (ED), Dementia (ED), Non-diabetic Hypoglycemia (ED), Hypoglycemia in a Person with Diabetes (ED), Concussion (ED), Alcohol Intoxication (ED), Subarachnoid Hemorrhage (GEN), Altered Mental Status (ED), Opioid Safety, Pain Management Coding Level of Care Code ED Senior Linux Systems Administrator for Candis Parra
[2023-06-02 10:20] VITALS: BP 150/82; PULSE 73; RESP 18; O2SAT 99
== END 2023-06-02 10:21 | disposition home or self-care (01) ==
PROVIDERS: Emergency Provider Emergency Medicine; PCP Physician Assistant
DX: S00.81XA Abrasion of other part of head, initial encounter (principal); F03.90 Unspecified dementia, unspecified severity, without behavioral disturbance, psychotic disturbance, mood disturbance, and anxiety; I11.0 Hypertensive heart disease with heart failure; I50.9 Heart failure, unspecified; W19.XXXA Unspecified fall, initial encounter
CPT/HCPCS: 51701; 70450; 72125; 80053; 81003; 85025; 99284

== ENCOUNTER 2023-06-05 08:23 | Inpatient (IN) | payer MEDICARE, OTHER, SELFPAY ==
[2023-06-05] VITALS (67 sets, daily range): BP systolic 69–131; BP diastolic 37–64; PULSE 50–126; RESP 14–28; TEMP 29.1–37.2; O2SAT 20–99; BMI 33.5
--- NOTE | 2023-06-05 08:38 | XR_ITS ---
WS: [id number] Exam: XR chest 1V portable [id number] Date/Time of Exam: 06/05/2023 8:41 AM Reason For Exam: dyspnea/cough Comparison 06/06/2022. There is diffuse groundglass infiltrate throughout the RIGHT lung. The LEFT lung is clear. The lungs are fully expanded. No pleural effusions. Cardiomediastinal silhouette is unremarkable for technique. Bony structures are intact. Monitoring leads superimpose the chest. IMPRESSION: 1. Diffuse groundglass infiltrate throughout the RIGHT lung suggesting pneumonia.
--- NOTE | 2023-06-05 08:38 | CT_ITS ---
WS: [id number] CT ABDOMEN PELVIS TECHNIQUE: Noncontrast CT of the abdomen and pelvis with coronal and sagittal reformatted images. CLINICAL INFORMATION: Abdominal pain COMPARISON: CT abdomen pelvis 05/05/2022 DLP: 905.[address] scans at [facility] use at least one of these dose optimization techniques: automated e xposure control; mA and/or kV adjustment per patient size (includes targeted exams where dose is matc hed to clinical indication); or iterative reconstruction. FINDINGS: Small bilateral pleural effusions. Interstitial edema in the lung bases. Interstitial infiltrates in both lower lobes likely due to edema. Normal noncontrast liver and spleen. Splenic artery calcification. Small esophageal hiatal hernia. Ad renal glands are normal. Bilateral renal cortical atrophy. Normal caliber abdominal aorta. Fatty atro phy of the pancreas. Sigmoid diverticulosis. Normal appendix in the RIGHT lower quadrant. Moderate sp ondylitic changes lumbar spine. Disc space narrowing worse at L3-L4 L4-L5 and L5-S1. Moderate central canal stenosis L4-5. IMPRESSION: 1. Tiny bilateral pleural effusions with interstitial edema in the lung bases. 2. Small esophageal hernia. 3. No hydronephrosis in either kidney. 4. No free fluid in the abdomen or pelvis. 5. Sigmoid diverticulosis. No evidence of acute diverticulitis. 6. No other acute findings.
--- NOTE | 2023-06-05 08:38 | CT_ITS ---
WS: [id number] CT HEAD TECHNIQUE: Noncontrast CT of the head obtained from the skullbase to the vertex. CLINICAL INFORMATION: AMS COMPARISON: 06/02/2023 DLP: 1023.[address] scans at [facility] use at least one of these dose optimization techniques: automated e xposure control; mA and/or kV adjustment per patient size (includes targeted exams where dose is matc hed to clinical indication); or iterative reconstruction. FINDINGS: No evidence of intracranial hemorrhage or mass effect. Ventricular system and basal cisterns are olsen nt. Mild small vessel changes with mild parenchymal volume loss. Benign basal ganglia calcifications. Intracranial vascular calcification. Paranasal sinuses and mastoid air cells are well aerated. No ex tra-axial fluid collections. No evidence of mass or mass effect. Small amount of air in the cavernous sinuses bilaterally and a few scalp veins likely venous from venous access placement. Paranasal sinuses and mastoid air cells are well aerated. .Normal visualized soft tissues. IMPRESSION: 1. No evidence of intracranial hemorrhage or mass effect. 2. Mild small vessel changes. Mild parenchymal volume loss. 3. No acute intracranial findings.
--- NOTE | 2023-06-05 08:39 | ECG_ITS ---
[facility] Test Date: 2023-06-05 Pat Name: Tiffanie Rosas Department: Room: Gender: Female Vascular Technologist Sonographer: : 1940 Requested By: Cameron Jenkins Order Number: [id number] Ramos MD: Lena Grissom M.D. Measurements Intervals [place] Rate: 59 P: 0 VA: 0 QRS: 96 QRSD: 154 T: -5 QT: 608 QTc: 604 Interpretive Statements Possible atrial fibrillation Heavy baseline artifact Need to repeat the study Electronically Signed On 06-05-2023 23:17:40 INSTRUCTION LIBRARIAN by Lena Grissom M.D. [id number]
--- NOTE | 2023-06-05 08:40 | W.ED.GENADLT ---
HPI - General Adult General: Chief complaint: Altered Mental Status Stated complaint: found outside after fall Time Seen by Provider: 06/05/23 08:29 Source: patient Mode of arrival: wheelchair History of Present Illness: 82-year-old female found down by family members this morning when he returned home. She was last seen well by family yesterday around 8 AM. There is evidence from the house she had been bringing some things outside and doing some various tasks around the house. No prior complaints of illness, notation of some mild dementia in the old chart. Patient has had frequent falls recently has an abrasion on the forehead that the family says is old but there is bruising bilaterally around the eyes and on the right side of the forehead that is new there is also a large bruise on the right medial upper breast. Onset (ago): unknown Review of Systems General: Reports: ROS unobtainable due to medical condition and ROS unobtainable due to mental status PFSH ED PFSH: Medical History (Updated 06/06/23 @ 06:52 by Cameron Xiong DO) Aortic stenosis Severe per last echocardiogram 02/11 CHF (congestive heart failure), NYHA class III Dementia GERD (gastroesophageal reflux disease) Hypertension Hyponatremia Leg swelling RBBB Swelling of lower leg Vomiting Surgical History Hx of section Hx of eye surgery lenses placed in bilat eyes Hx of hysterectomy Hx of knee surgery bilateral knee replacements Social History (Updated 06/05/23 @ 10:51 by Rohan Cunha MD) Smoking and tobacco/nicotine status: never used tobacco/nicotine Alcohol intake: never Physical Exam Const: ORIENTATION/CONSCIOUSNESS: Yes awake HENMT: COMMON NORMALS: normocephalic, atraumatic and hearing grossly normal bilaterally HEAD & SCALP: normocephalic and atraumatic Resp: COMMON NORMALS: normal respiratory effort, No retractions, No use of accessory muscles and clear to auscultation bilaterally AUSCULTATION: clear to auscultation bilaterally Cardio: COMMON NORMALS: regular rate, regular rhythm and No murmurs present (Cardio) RATE: regular rate RHYTHM: regular rhythm GI: COMMON NORMALS: Soft to palpation and No hepatosplenomegaly present AUSCULTATION: Yes normoactive bowel sounds PALPATION: Yes Soft to palpation, No Tenderness to palpation present (GI), No Guarding due to palpation present (GI) and Yes No hepatosplenomegaly present Extremity: COMMON NORMALS: normal to inspection, capillary refill normal, no clubbing, cyanosis or edema, no calf tenderness and no pedal edema Skin: COMMON NORMALS: no rashes or lesions noted GENERAL SKIN EXAM: no rashes or lesions noted Course Vital Signs: Vital signs: Vital Signs Temperature 98.2 F 06/06/23 06:00 Pulse Rate 70 06/06/23 06:30 Respiratory Rate 19 H 06/06/23 06:30 Blood Pressure 117/46 06/06/23 06:30 Pulse Oximetry 95 06/06/23 06:30 Oxygen Delivery Me thod Room Air 06/06/23 06:00 MDM - General Adult Medical Decision Making Hypothermia with acute metabolic encephalopathy multiple falls dementia acute kidney injury lactic acidosis. I suspect her lactic acidosis is due to hypothermia and the acute kidney injury. She does have A-fib but is in a controlled rate at this time as she rewarm she will be at risk for a worsening arrhythmias. It looks like she may have aspirated she was started on Zosyn. Warming measures are ongoing. Discussed with hospitalist admit to ICU Medical Records I reviewed the patient's medical records. Lab Data I reviewed the patient's lab results. 06/06/23 03:38 06/06/23 03:38 Laboratory Results WBC 6.06 10^3/uL (3.29-11.43) 06/05/23 08:45 RBC 5.49 10^6/uL (3.85-5.65) 06/05/23 08:45 Hgb 16.10 g/dL (11.27-16.99) 06/05/23 08:45 Hct 48.8 % (36-47) H 06/05/23 08:45 MCV 88.9 fl (85-98) 06/05/23 08:45 MCH 29.3 pg (27-33) 06/05/23 08:45 MCHC 33.0 g/dL (30-55) 06/05/23 08:45 RDW 14.4 % (12.1-15.1) 06/05/23 08:45 Plt Count 218 10^3/cmm (157-399) 06/05/23 08:45 MPV 9.1 fL (7.4-10.4) 06/05/23 08:45 Neut % (Auto) 60.4 % 06/05/23 08:45 Lymph % (Auto) 30.5 % 06/05/23 08:45 [place] % (Auto) 7.8 % 06/05/23 08:45 Eos % (Auto) 0.3 % 06/05/23 08:45 Baso % (Auto) 0.5 % 06/05/23 08:45 Neut # (Auto) 3.66 10^3/uL (1.8-7.7) 06/05/23 08:45 Lymph # (Auto) 1.9 10^3/uL (0.8-4.8) 06/05/23 08:45 [place] # (Auto) 0.5 10^3/uL (0.2-0.9) 06/05/23 08:45 Eos # (Auto) 0.0 10^3/uL (0.0-0.8) 06/05/23 08:45 Baso # (Auto) 0.0 10^3/uL (0.0-0.1) 06/05/23 08:45 Nucleated RBC % (auto) 0 % 06/05/23 08:45 Nucleated RBCs # 0.0 /100WBC 06/05/23 08:45 Specimen Type Arterial 06/05/23 08:46 Sample Site Radial, right 06/05/23 08:46 ABG pH 7.30 (7.35-7.45) L 06/05/23 08:46 ABG pCO2 47.1 mmHg (35-45) H 06/05/23 08:46 ABG pO2 101.0 mmHg (80.0-100.0) H 06/05/23 08:46 ABG PO2/FiO2 Ratio 0 06/05/23 08:46 ABG HCO3 22.9 mmol/L (22-26) 06/05/23 08:46 ABG O2 Saturation 96.5 06/05/23 08:46 ABG Base Excess -3.9 mmol/L (-2.0-2.0) L 06/05/23 08:46 [place] Test Pos 06/05/23 08:46 A-a O2 Gradient Not Reportable 06/05/23 08:46 Hematocrit 48.5 % (37-47) H 06/05/23 08:46 Hgb O2 Saturation 95.7 % (95-100) 06/05/23 08:46 Carboxyhemoglobin 0.4 %THgb (0.4-20.1) 06/05/23 08:46 Methemoglobin 0.4 % (0.4-1.5) 06/05/23 08:46 Total Hemoglobin 15.8 g/dL (12-16) 06/05/23 08:46 Sodium 141.0 mmol/L (131-143) 06/05/23 08:46 Potassium 4.0 mmol/L (3.5-5.0) 06/05/23 08:46 Glucose 147.0 mg/dL (70-115) H 06/05/23 08:46 Ionized Calcium 1.2 mmol/L (1.1-1.4) 06/05/23 08:46 O2 Delivery Device Room air 06/05/23 08:46 FiO2 21.0 % 06/05/23 08:46 [employer] Police Captain ID Cak 06/05/23 08:46 Sodium 141 mmol/L (136-145) 06/05/23 08:45 Potassium 5.4 mmol/L (3.5-5.1) H 06/05/23 08:45 Chloride 104 mmol/L (98-107) 06/05/23 08:45 Carbon Dioxide 25 mmol/L (22-29) 06/05/23 08:45 Anion Gap 17.4 (5-19) 06/05/23 08:45 BUN 32 mg/dL (8-23) H 06/05/23 08:45 Creatinine 0.9 mg/dL (0.5-0.9) 06/05/23 08:45 GFR Calculation Not Reportable 06/05/23 08:45 Glucose 163 mg/dL (65-115) H 06/05/23 08:45 Calculated Osmolality 302 mOsm/kg (285-295) H 06/05/23 08:45 Lactic Acid 3.3 mmol/L (0.5-2.2) H 06/05/23 09:26 Calcium 9.4 mg/dL (8.5-10.5) 06/05/23 08:45 Magnesium 2.6 mg/dL (1.7-2.3) H 06/05/23 08:45 Total Bilirubin 0.7 mg/dL (0.15-1.2) 06/05/23 08:45 AST 41 U/L (0-32) H 06/05/23 08:45 ALT 28 U/L (0-33) 06/05/23 08:45 Alkaline Phosphatase 113 U/L (35-105) H 06/05/23 08:45 Creatine Kinase 581 U/L (26-192) H* 06/05/23 08:45 Troponin T Baseline 77 ng/L (0-10) H 06/05/23 09:26 Total Protein 7.1 g/dL (6.6-8.7) 06/05/23 08:45 Albumin 3.9 g/dL (3.5-5.2) 06/05/23 08:45 Globulin 3.2 g/dL (1.3-4.6) 06/05/23 08:45 Lipase 30 U/L (13-60) 06/05/23 08:45 TSH 2.92 uIU/mL (0.27-4.20) 06/05/23 09:26 Urine Color Yellow (Yellow) 06/05/23 10:15 Urine Appearance Clear (CLEAR) 06/05/23 10:15 Urine pH 6 (5-7) 06/05/23 10:15 Ur Specific [place] 1.025 (1.005-1.030) 06/05/23 10:15 Urine Protein Neg (Negative) 06/05/23 10:15 Urine Glucose (UA) Norm (Normal) 06/05/23 10:15 Urine Ketones Negative (Negative) 06/05/23 10:15 Urine Blood Neg (Negative) 06/05/23 10:15 Urine Nitrate Negative (Negative) 06/05/23 10:15 Urine Bilirubin Neg (Negative) 06/05/23 10:15 Urine Urobilinogen Norm mg/dL (Negative) 06/05/23 10:15 Ur Leukocyte Esterase Negative (Negative) 06/05/23 10:15 All radiology interpretation(s) finalized by discharge Critical Care Time Critical Care Time: Critical Care Time: Yes Total Critical Care Time: 60 Attestation: The high probability of a clinically significant, sudden or life threatening deterioration of the patient's metabolic cardiovascular respiratory renal system(s) required my full and direct attention, intervention and personal management. The critical care time is as shown. This time is in addition to time spent performing any reported procedures but includes the following: [x] Data and vital sign review and interpretation [x] Patient assessment, examination and intervention [x] Documentation [x] Medication orders and management Discharge Plan Discharge Patient Disposition: Admitted As Inpatient Admit Provider: Rohan Cunha Clinical Impression: Acute metabolic encephalopathy, Aortic stenosis, Hypertension, Fall, Dementia, Head injury, Abrasion of forehead, Hypothermia, Aspiration pneumonitis, Closed head injury, CHF (congestive heart failure), NYHA class III, Acute kidney injury Condition: Stable Coding Level of Care Code ED Chancery Clerk for Candis Parra
[2023-06-05 08:51] LABS: Basophils % 0.5 %; Eosinophils % 0.3 %; Hematocrit 48.8 % (36-47); Lymphocytes # 1.9 10^3/uL (0.8-4.8); Lymphocytes % 30.5 %; Mean Corpuscular Hemoglobin 29.3 pg (27-33); Mean Corpuscular Volume 88.9 fl (85-98); Mean Platelet Volume 9.1 fL (7.4-10.4); Monocytes # 0.5 10^3/uL (0.2-0.9); Monocytes % 7.8 %; Neutrophils # 3.66 10^3/uL (1.8-7.7); Neutrophils % 60.4 %; Nucleated Red Blood Cells % 0 %; Platelet Count 218 10^3/cmm (157-399); Red Blood Count 5.49 10^6/uL (3.85-5.65); Red Cell Distribution Width 14.4 % (12.1-15.1); White Blood Count 6.06 10^3/uL (3.29-11.43)
[2023-06-05 08:57] LABS: ABG PCO2 47.1 mmHg (35-45); Arterial Blood Gas Hematocrit 48.5 % (37-47); Base Excess ABG -3.9 mmol/L (-2.0-2.0); Blood Gas Allen Test Pos; Blood Gas Operator Identificat CAK; Blood Gas Sample Site Radial, right; Blood Gas Sample Type Arterial; Carboxyhemoglobin 0.4 %THgb (0.4-20.1); HCO3 ABG 22.9 mmol/L (22-26); HGB O2 Sat 95.7 % (95-100); Ionized Calcium Level - ABG 1.2 mmol/L (1.1-1.4); Methemoglobin 0.4 % (0.4-1.5); Oxygen Device ROOM AIR; Oxygen Saturation ABG 96.5; PO2 FiO2 Ratio Arterial Blood 0; Total Hemoglobin 15.8 g/dL (12-16)
[2023-06-05 09:13] LABS: Alanine Aminotransferase 28 U/L (0-33); Albumin Level 3.9 g/dL (3.5-5.2); Alkaline Phosphatase 113 U/L (35-105); Aspartate Amino Transferase 41 U/L (0-32); Blood Urea Nitrogen 32 mg/dL (8-23); Calcium 9.4 mg/dL (8.5-10.5); Carbon Dioxide 25 mmol/L (22-29); Chloride 104 mmol/L (98-107); Globulin 3.2 g/dL (1.3-4.6); Glucose 163 mg/dL (65-115); Lipase 30 U/L (13-60); Magnesium 2.6 mg/dL (1.7-2.3); Osmolality Calculated 302 mOsm/kg (285-295); Sodium 141 mmol/L (136-145); Total Bilirubin 0.7 mg/dL (0.15-1.2); Total Protein 7.1 g/dL (6.6-8.7)
[2023-06-05 09:22] LABS: Anion Gap 17.4 (5-19); Creatine Phosphokinase 581 U/L (26-192); Potassium 5.4 mmol/L (3.5-5.1)
[2023-06-05] MEDS: sodium chloride 0.9% 1,000 ML 999 ML IV (09:45)
[2023-06-05 10:04] LABS: Lactic Sepsis W/Reflex 3.3 mmol/L (0.5-2.2)
[2023-06-05 10:05] LABS: Troponin(5th) Baseline 77 ng/L (0-10)
[2023-06-05 10:26] LABS: Add Urine Microscopic? NO; Charge for UA Resulting for Rev
--- NOTE | 2023-06-05 10:39 | ECG_ITS ---
[facility] Test Date: 2023-06-05 Pat Name: Tiffanie Rosas Department: Room: Gender: Female Client Retention Specialist: : 1940 Requested By: Cameron Jenkins Order Number: [id number] Ramos MD: Lena Grissom M.D. Measurements Intervals [place] Rate: 62 P: 0 MS: 0 QRS: 79 QRSD: 159 T: 259 QT: 526 QTc: 534 Interpretive Statements ATRIAL FIBRILLATION RIGHT BUNDLE BRANCH BLOCK [120+ ms QRS DURATION, UPRIGHT V1, 40+ ms S IN I/aVL/V4/V5/V6] MARKED ST DEPRESSION, CONSIDER SUBENDOCARDIAL INJURY [0.2+ mV ST DEPRESSION] ACUTE AL Compared to ECG 06/05/2023 09:14:07 Right bundle-branch block now present ST (T wave) deviation now present Ventricular premature complex(es) no longer present Aberrant conduction of supraventricular beat(s) no longer present Intraventricular conduction delay no longer present Prolonged QT interval no longer present Electronically Signed On 06-05-2023 23:25:16 THIRD STEEL POURER by Lena Grissom M.D. [id number]
[2023-06-05] MEDS: piperacillin-tazobactam 3.375 GM in sodium chloride 0.9% (plus) 50 ML IV ×3 (10:42→23:38)
[2023-06-05 10:44] LABS: Bilirubin Urine Neg (Negative); Blood Urine Neg (Negative); Glucose Urine UA Norm (Normal); Ketones Urine Negative (Negative); Leukocyte Esterase Urine Negative (Negative); Nitrate Urine Negative (Negative); Protein Urine Neg (Negative); Specific Gravity, Urine 1.025 (1.005-1.030); Urine Appearance Clear (CLEAR); Urine Color Yellow (Yellow); Urobilinogen Urine Norm (Negative); pH Urine 6 (5-7)
--- NOTE | 2023-06-05 10:48 | P.HP_ITS ---
Providers/Chief Complaint Admitting Physician: Rohan Cunha MD, hospitalist Primary Care Provider: Chelle Dumont Chief Complaint: found outside after fall History of Present Illness Tiffanie Rosas is a 83 year old female presenting from home with history of being found outside. Last known well was 8 AM yesterday morning. She was found outside, laying on her right side, with some emesis. She was very cold. Son reports she has some dementia, had a fall last week, sometimes wanders and he has found her outside before. Son reports she has not had any recent illnesses, cough, shortness of breath, fever. Ill contacts could have been him and he had a little loose stool the other day but otherwise nothing of significance. She has not had any apparent chest pain, blood in stool or black or tarry stools. He reports she normally can carry on a conversation, but is very confused often wanders. She is usually incontinent of urine. Review of Systems General: Reports: 10 or more systems reviewed and unremarkable except in HPI and below Const: Reports: other (Review of systems limited, obtained from son, patient with dementia) Card: Denies: chest pain Resp: Denies: dyspnea GI: Denies: abdominal pain Medications/Allergies Home Medications Medication Instructions Recorded Confirmed Last Taken Type metoprolol tartrate 25 mg tablet 25 mg PO BID #60 tabs 02/03/22 06/05/23 05/11/22 Rx potassium chloride 20 mEq 20 meq PO BEDTIME 03/25/23 06/05/23 Unknown History tablet,extended release(part/cryst) 4-Function Brain Support 2 tab PO QAM 06/05/23 06/05/23 Unknown History Brain Performance Support 2 tab PO QAM 06/05/23 06/05/23 Unknown History Folate 333 mg PO QAM 06/05/23 06/05/23 Unknown History L-Arginine 500mg 1,000 mg PO QAM 06/05/23 06/05/23 Unknown History Mushroom Complex 6,200 mg PO QAM 06/05/23 06/05/23 Unknown History calcium carbonate 600 mg-vitamin 2 tab PO QAM 06/05/23 06/05/23 Unknown History D3 5 mcg (200 unit) tablet cranberry extract 500 mg tablet 500 mg PO QAM 06/05/23 06/05/23 Unknown History furosemide 40 mg tablet 40 mg PO QAM 06/05/23 06/05/23 Unknown History garlic 1,000 mg capsule 1,000 mg PO QAM 06/05/23 06/05/23 Unknown History green tea leaf extract 500 mg 500 mg PO QAM 06/05/23 06/05/23 Unknown History capsule levocarnitine 500 mg tablet 500 mg PO QAM 06/05/23 06/05/23 Unknown History (L-Carnitine) nystatin 100,000 unit/gram topical 1 applic topical . DIRECTED 06/05/23 06/05/23 Unknown History cream omega-3 fatty acids 1,000 mg PO QAM 06/05/23 06/05/23 Unknown History Allergies Allergy/AdvReac Type Severity Reaction Status Date / Time acetaminophen [From [place]] Allergy ADR-Drowsy Verified 06/05/23 09:44 hydrocodone AdvReac Mild ADR-Drowsy Verified 06/02/23 08:20 [From Panlor (hydrocodone-acetamin)] PFSH Acute PFSH: Medical History (Updated 06/05/23 @ 10:58 by Rohan Cunha MD) Aortic stenosis Severe per last echocardiogram 02/11 CHF (congestive heart failure), NYHA class III Dementia GERD (gastroesophageal reflux disease) Hypertension Hyponatremia Leg swelling RBBB Swelling of lower leg Vomiting Surgical History Hx of section Hx of eye surgery lenses placed in bilat eyes Hx of hysterectomy Hx of knee surgery bilateral knee replacements Social History (Updated 06/05/23 @ 10:51 by Rohan Cunha MD) Smoking and tobacco/nicotine status: never used tobacco/nicotine Alcohol intake: never Other PFSH information: Supplemental PFSH Information: No pertinent family history Vitals/I&O/Wt Last Vital Signs Pulse 64 06/05/23 08:52 Resp 17 06/05/23 08:52 Pulse Ox 95 06/05/23 08:52 O2 Del Method Room Air 06/05/23 08:52 Physical Exam Narrative: Very cool white female, who has not yet registered a temperature. She opens her eyes and tracks. When asked to say hello she will slowly say garbled hello. I cannot really get her to move her to follow other directions currently. HEENT: Pupils equally round. Oropharynx with dry mucous membranes. Bruising is noted forehead, over eyelids Neck supple no lymphadenopathy thyromegaly Cardiovascular irregular, irregular with controlled rate. 2/6 systolic murmur heard Lungs diminished breath sounds bilaterally. A few coarse breath sounds bilaterally Abdomen is soft with positive bowel sounds. No obvious organomegaly exam is deferred Extremities show 2+ edema bilaterally. Cool. Cap refill slow, around 4 seconds Skin see findings above. Still need to look at buttocks to rule out any pressure ulcer as she has had in the past Neuro: Slow to respond, cannot cooperate with exam, will need repeat evaluation. Urinary Catheter Management: Brady: Cath Placed During This Visit: yes Urinary Catheter Date of Insertion: 06/05/23 Urinary Catheter Time of Insertion: 10: Data 06/05/23 08:45 06/05/23 08:45 Other Labs: EKG demonstrates a rate of around 59, atrial fibrillation, normal axis, PVCs, intraventricular conduction delay. Nonspecific ST-T wave changes. Reviewed by ny Abdominal pelvis CT no hydronephrosis, no diverticulitis, tiny bilateral pleural effusions. ABG demonstrates pH 7.3, PCO2 47, PO2 101 on room air LFTs normal with exception of AST of 41 and alkaline phosphatase of 113 CK 581 Troponin 77 Albumin, lipase, calcium normal Lactic acid 3.3 Urinalysis negative Chest x-ray shows right-sided infiltrate, reviewed by ny CT head no acute changes, reviewed by ny Blood cultures were collected Micro: Microbiology 06/05/23 09:37 Blood Culture - Preliminary Blood SPECIMEN COLLECTED 06/05/23 09:26 Blood Culture - Preliminary Blood SPECIMEN COLLECTED A&P Assessment and plan (1) Hypothermia: Patient is profoundly hypothermic. Actively warming with blankets and fluids Monitor for any arrhythmias Repeat CBC, CMP, electrolytes in the morning (2) Fall: Patient with history of several falls lately No evidence of hemorrhage on CT Fall precautions here Monitor closely for any other injuries (3) Aspiration pneumonitis: Patient has evidence of aspiration pneumonitis Sputum culture Zosyn IV Blood cultures (4) Acute metabolic encephalopathy: Patient has acute metabolic encephalopathy superimposed on severe dementia. Monitor for improvement Warm, and reassess (5) Rhabdomyolysis: Patient with evidence of rhabdomyolysis, but has evidence of extra fluid on exam Cautious hydration Repeat CK in the morning Close follow-up of renal function. (6) Atrial fibrillation: Patient with evidence of atrial fibrillation on EKG Initiate Lovenox Patient has known severe aortic stenosis, no reason to repeat EKG at this point Hold BBlocker currently. Restart when able to take po (7) Lactic acidosis: Patient would like to go acidosis secondary to poor perfusion with hypothermia. Improved perfusion with fluids. Pressors if needed. (8) Closed head injury: It is apparent patient has had a closed head injury secondary to the bruising and history of falls. There is no evidence of intracranial/subdural hemorrhage (9) Dementia: Patient with severe dementia. She has had wandering before. We will need to discuss interventions for safe environment (10) Aortic stenosis: History of severe aortic stenosis. Her severe dementia may preclude aggressive management. (11) CHF (congestive heart failure), NYHA class III: Patient with history of congestive heart failure. This does not appear acute currently but is at risk with fluids needed for resuscitation. Continue to monitor closely. Qualifiers: Congestive heart failure type: unspecified Qualified Code(s): I50.9 - Heart failure, unspecified Plan Other medical problems as outlined in past medical history Allow natural Lovenox will suffice for DVT prophylaxis Attestations Medical Necessity Statement*: Will need greater than 2 midnight stay for evaluation and treatment of multiple life-threatening medical conditions including hypothermia, encephalopathy, etc. Critical Care Time: The high probability of a clinically significant, sudden or life threatening deterioration of the patient's [environmental, cardiac, neurologic] system(s) required my full and direct attention, intervention and personal management. The critical care time is as shown. This time is in addition to time spent performing any reported procedures but includes the following: [x] Data and vital sign review and interpretation [x] Patient assessment, examination and intervention [x] Documentation [x] Medication orders and management Critical Care Time (min): 61 Coding Level of Care Code Critical Care >/= 30 minutes Critical care time (in minutes): 61 The high probability of a clinically significant, sudden or life threatening deterioration, as referenced in this documentation, required my full and direct attention, intervention and personal management. The critical care time shown is in addition to time spent performing any reported separately billable procedures and includes the following: [x] Data and vital sign review and interpretation [x ] Patient assessment, examination and intervention [x] Medication orders and management [x] Patient/Family updates as able [x] Care Coordination and Documentation. Diagnoses Hypothermia T68.XXXA Fall W19.XXXA Aspiration pneumonitis J69.0 Acute metabolic encephalopathy G93.41 Rhabdomyolysis M62.82 Atrial fibrillation I48.91 Lactic acidosis E87.20 Closed head injury S09.90XA Dementia F03.90 Aortic stenosis I35.0 CHF (congestive heart failure), NYHA class III I50.9 Congestive heart failure type: unspecified
[2023-06-05 11:28] LABS: Reflex Lactate Order REFLEX LACTIC ORDERD
[2023-06-05 11:57] LABS: Troponin 5 2HR 63.31 ng/L (0-10)
[2023-06-05 12:42] LABS: Lactic Acid level (Lactate) 4.2 mmol/L (0.5-2.2)
--- NOTE | 2023-06-05 12:51 | PC.NURSE ---
Called Adult Abuse Hotline regarding patient's situation. Patient has dementia and alzheimers and lives at home alone and is not receiving the care she needs. She has not been to the ER twice in 4 days due to situations of falling and being found outside on the ground freezing cold for several hours. I gave my report to linen room custodian #[id number].
[2023-06-05] MEDS: sodium chloride 0.9% 1,000 ML 750 ML IV ×2 (13:15→14:53)
--- NOTE | 2023-06-05 13:50 | PC.NURSE ---
1315 Started NS bolus as ordered, 500ml per orders into left AC iv.
--- NOTE | 2023-06-05 14:03 | PC.NURSE ---
1403 meAN PRESSURe of [address] uCnha, Ordered another 500ml fluid bolus. Started bolus at 750ml
--- NOTE | 2023-06-05 14:39 | ECG_ITS ---
[facility] Test Date: 2023-06-05 Pat Name: Tiffanie Rosas Department: Room: ICU07 Gender: Female Channel Opener: : 1940 Requested By: Cameron Jenkins Order Number: [id number] Ramos MD: Lena Grissom M.D. Measurements Intervals [place] Rate: 109 P: 72 [place]: 194 QRS: -30 QRSD: 125 T: 118 QT: 428 QTc: 577 Interpretive Statements Possible atrial flutter /fibrillation with rapid ventricular rate BORDERLINE LEFT AXIS DEVIATION [QRS AXIS < -20] POSSIBLE RIGHT VENTRICULAR CONDUCTION DELAY [RSR (QR) IN V1/V2] ST DEVIATION AND MODERATE T-WAVE ABNORMALITY, CONSIDER LATERAL ISCHEMIA [-0.1+ mV T-WAVE IN I/aVL/V5/V6] ST DEVIATION AND MODERATE T-WAVE ABNORMALITY, CONSIDER INFERIOR ISCHEMIA [-0.1+ mV T-WAVE IN II/aVF] Compared to ECG 06/05/2023 10:44:23 T-wave abnormality now present Possible ischemia now present Right bundle-branch block no longer present ST (T wave) deviation no longer present Electronically Signed On 06-05-2023 23:28:06 FIRE APPARATUS ENGINEER by Lena Grissom M.D. [id number]
[2023-06-05] MEDS: norepinephrine 4 MG/250 ML BAG 7.5 MG IV (14:46)
[2023-06-05 16:53] LABS: Troponin 5 6HR 85.11 ng/L (0-10)
[2023-06-05 16:57] LABS: Troponin 5 6HR Delta 8.11 ng/L (0-12)
--- NOTE | 2023-06-05 18:53 | PC.NURSE ---
1850 Removed three rings from left ring finger: a wide solid band, a single set similar to typical engagement ring, and a copper/black narrow band with gems spaced apart. Removed 2 rings from right ring finger: gold band with many sets/stones on top and a gold band mother's ring. Gave all 5 rings to son Colt Rosas.
--- NOTE | 2023-06-05 19:01 | PC.NURSE ---
1839 Long pause on monitor noted, patient wide eyed and teary eyed, ask if she felt her heart do something different, she knods her head yes. Notified Dr. Cunha, new order for TSH lab.
[2023-06-05 20:18] LABS: Thyroid Stimulating Hormone 2.92 uIU/mL (0.27-4.20)
[2023-06-05] MEDS: enoxaparin 40 mg/0.4 mL Syringe SUBCUT (20:40)
[2023-06-05] MEDS: norepinephrine 4 MG/250 ML BAG 30 MG IV (23:38)
[2023-06-05] MEDS: sodium chloride 0.9% 1,000 ML 100 ML IV (23:39)
[2023-06-06] VITALS (80 sets, daily range): BP systolic 68–148; BP diastolic 39–97; PULSE 64–87; RESP 17–27; TEMP 36.2–37.3; O2SAT 93–98
[2023-06-06 04:20] LABS: Basophils % 0.1 %; Hematocrit 39.4 % (36-47); Mean Corpuscular HGB Conc 32.7 g/dL (30-55); Mean Corpuscular Hemoglobin 29.5 pg (27-33); Mean Corpuscular Volume 90.2 fl (85-98); Mean Platelet Volume 9.2 fL (7.4-10.4); Monocytes # 0.7 10^3/uL (0.2-0.9); Monocytes % 7.4 %; Neutrophils # 7.55 10^3/uL (1.8-7.7); Neutrophils % 81.2 %; Nucleated Red Blood Cells % 0 %; Platelet Count 235 10^3/cmm (157-399); Red Blood Count 4.37 10^6/uL (3.85-5.65); Red Cell Distribution Width 14.7 % (12.1-15.1)
[2023-06-06 04:45] LABS: Alanine Aminotransferase 26 U/L (0-33); Albumin Level 2.9 g/dL (3.5-5.2); Alkaline Phosphatase 87 U/L (35-105); Anion Gap 20.9 (5-19); Aspartate Amino Transferase 42 U/L (0-32); Blood Urea Nitrogen 26 mg/dL (8-23); Calcium 8.2 mg/dL (8.5-10.5); Carbon Dioxide 17 mmol/L (22-29); Chloride 112 mmol/L (98-107); Globulin 2.6 g/dL (1.3-4.6); Glucose 82 mg/dL (65-115); Magnesium 2.2 mg/dL (1.7-2.3); Osmolality Calculated 306 mOsm/kg (285-295); Potassium 3.9 mmol/L (3.5-5.1); Sodium 146 mmol/L (136-145); Total Protein 5.5 g/dL (6.6-8.7)
[2023-06-06 04:55] LABS: Creatine Phosphokinase 379 U/L (26-192)
[2023-06-06] MEDS: piperacillin-tazobactam 3.375 GM in sodium chloride 0.9% (plus) 50 ML IV ×3 (07:29→23:41)
[2023-06-06] MEDS: sodium chloride 0.45% 1,000 ML 50 ML IV (07:30)
[2023-06-06 07:57] LABS: Glucose Point of Care 69 mg/dL (70-110)
--- NOTE | 2023-06-06 08:55 | P.PN_ITS ---
Subjective Subjective: Tiffanie is awake and more conversive this morning. No further significant arrhythmias since yesterday and she has reverted to sinus rhythm. Medications: Reviewed: Yes Vitals/I&O/Wt Last Vital Signs Temp 98.1 F 06/06/23 08:05 Pulse 70 06/06/23 06:30 Resp 19 H 06/06/23 06:30 BP 117/46 06/06/23 06:30 Pulse Ox 95 06/06/23 06:30 O2 Del Method Room Air 06/06/23 06:00 06/05/23 06/06/23 06/06/23 22:59 06:59 14:59 Intake Total 1254.313 / 2280.188 1155.458 / 3435.646 845 / 845 Output Total 800 / 800 Balance 454.313 / 1784.100 6807.458 / 2635.646 845 / 845 Weight last 48 hrs Weight 88.088 kg Weight 91.49 kg Weight 91.49 kg Physical Exam Narrative: General exam no distress, conversant and confused Neck supple no lymphadenopathy thyromegaly Cardiovascular irregular, irregular with controlled rate. 3/6 systolic murmur heard Lungs diminished breath sounds bilaterally. A few coarse breath sounds bilaterally Abdomen is soft with positive bowel sounds. No obvious organomegaly Extremities show 2+ edema bilaterally. Cool. Cap refill slow, around 4 seconds Neurologic: No obvious focal deficits but still severely confused which is likely her baseline Urinary Catheter Management: Brady: Cath Placed During This Visit: yes Urinary Catheter Date of Insertion: 06/05/23 Urinary Catheter Time of Insertion: 10: Data 06/06/23 03:38 06/06/23 03:38 Micro: Microbiology 06/05/23 09:37 Blood Culture - Preliminary Blood SPECIMEN COLLECTED 06/05/23 09:26 Blood Culture - Preliminary Blood SPECIMEN COLLECTED A&P Assessment and plan (1) Hypothermia: Patient is profoundly hypothermic on admission. She was actively warmed, and currently maintaining temperature Significant amount of arrhythmias was noted originally, which have appeared to resolve (2) Fall: Patient with history of several falls lately No evidence of hemorrhage on CT Fall precautions here Monitor closely for any other injuries (3) Aspiration pneumonitis: Patient has evidence of aspiration pneumonitis Sputum culture ordered Continue Zosyn IV Blood cultures obtained (4) Acute metabolic encephalopathy: Patient has acute metabolic encephalopathy superimposed on severe dementia. Improving (5) Rhabdomyolysis: Patient with evidence of rhabdomyolysis, but has evidence of extra fluid on exam CK decreasing Reduce hydration CBC, CMP in the morning (6) Atrial fibrillation: Patient with evidence of atrial fibrillation on EKG As hypothermia has resolved will go ahead and initiate full dose Lovenox. She may not be a candidate for full dose anticoagulation if going home secondary to her fall risk. We will evaluate with family when discharge plans have been made Patient has known severe aortic stenosis, no reason to repeat EKG at this point Will not restart beta-cydney. She did have significant pause yesterday. Continue to monitor heart rate which is stable currently. (7) Lactic acidosis: Patient would like to go acidosis secondary to poor perfusion with hypothermia and hypotension Significantly improved but still requiring norepinephrine, a high risk medicine Try to wean norepinephrine today. (8) Closed head injury: It is apparent patient has had a closed head injury secondary to the bruising and history of falls. There is no evidence of intracranial/subdural hemorrhage (9) Dementia: Patient with severe dementia. She has had wandering before. We will need to discuss interventions for safe environment (10) Aortic stenosis: History of severe aortic stenosis. Her severe dementia may preclude aggressive management. (11) CHF (congestive heart failure), NYHA class III: Patient with history of congestive heart failure. No evidence of decompensation currently, continue to monitor. Reduce fluids. Plan Other medical problems as outlined in past medical history Allow natural Lovenox will suffice for DVT prophylaxis Protonix for GI prophylaxis Initiation of diet after speech therapy consultation Attestations Medical Necessity Statement*: Needs continued hospitalization, for IV antibiotics related to aspiration pne umonitis, support with pressors, discharge planning, etc. If we can get her off IV norepinephrine it is possible she might be transferred to the floor later today or tomorrow. Critical Care Time: The high probability of a clinically significant, sudden or life threatening deterioration of the patient's [vascular related hypertension, pulmonary regarded pneumonia, neurologic] system(s) required my full and direct attention, intervention and personal management. The critical care time is as shown. This t alex is in addition to time spent performing any reported procedures but includes the following: [x] Data and vital sign review and interpretation [x] Patient assessment, examination and intervention [x] Documentation [x] Medication orders and management Critical Care Time (min): 33 Coding Level of Care Code Critical Care >/= 30 minutes Critical care time (in minutes): 33 The high probability of a clinically significant, sudden or life threatening deterioration, as referenced in this documentation, required my full and direct attention, intervention and personal management. The critical care time shown is in addition to time spent performing any reported separately billable procedures and includes the following: [x] Data and vital sign review and interpretation [x ] Patient assessment, examination and intervention [x] Medication orders and management [x] Patient/Family updates as able [x] Care Coordination and Documentation. Diagnoses Hypothermia T68.XXXA Fall W19.XXXA Aspiration pneumonitis J69.0 Acute metabolic encephalopathy G93.41 Rhabdomyolysis M62.82 Atrial fibrillation I48.91 Lactic acidosis E87.20 Closed head injury S09.90XA Dementia F03.90 Aortic stenosis I35.0 CHF (congestive heart failure), NYHA class III I50.9
[2023-06-06] MEDS: pantoprazole 40 mg SDV IVP (09:58)
[2023-06-06] MEDS: enoxaparin 100 mg/mL Syringe 90 MG SUBCUT ×2 (10:00→20:59)
--- NOTE | 2023-06-06 10:46 | PC.NURSE ---
Nurse attempted bedside swallow evaluation Patient failed eval. Unable to follow commands and demonstrate coughing/ability to clear airway.
[2023-06-06 12:36] LABS: Glucose Point of Care 88 mg/dL (70-110)
[2023-06-06] MEDS: norepinephrine 4 MG/250 ML BAG 7.5 MG IV (15:28)
[2023-06-06 17:05] LABS: Glucose Point of Care 194 mg/dL (70-110)
--- NOTE | 2023-06-06 18:32 | PC.NURSE ---
SHift SUmmary: uneventful shift Patient rested in bed for most of the day, did stand at the bedside with PT for a few minutes. Slight improvement in mental status, she seems easier to wake up and she has started eating whereas this morning she didn't know how to use a straw or wouldn't chew food placed in mouth. At the time of writing this note she has been off of levophed for about 1.5 hours.
[2023-06-07] VITALS (11 sets, daily range): BP systolic 119–165; BP diastolic 56–99; PULSE 65–88; RESP 16–24; TEMP 36.4–37.2; O2SAT 93–98
[2023-06-07] MEDS: sodium chloride 0.45% 1,000 ML 50 ML IV (03:03)
[2023-06-07 05:10] LABS: Basophils % 0.5 %; Eosinophils # 0.1 10^3/uL (0.0-0.8); Eosinophils % 0.9 %; Hematocrit 34.3 % (36-47); Lymphocytes # 1.6 10^3/uL (0.8-4.8); Lymphocytes % 27.8 %; Mean Corpuscular HGB Conc 32.1 g/dL (30-55); Mean Corpuscular Hemoglobin 28.9 pg (27-33); Mean Corpuscular Volume 90.3 fl (85-98); Mean Platelet Volume 9.5 fL (7.4-10.4); Monocytes # 0.6 10^3/uL (0.2-0.9); Monocytes % 10.2 %; Neutrophils # 3.55 10^3/uL (1.8-7.7); Neutrophils % 60.4 %; Nucleated Red Blood Cells % 0 %; Platelet Count 197 10^3/cmm (157-399); White Blood Count 5.87 10^3/uL (3.29-11.43)
[2023-06-07 05:32] LABS: Alanine Aminotransferase 23 U/L (0-33); Albumin Level 2.7 g/dL (3.5-5.2); Alkaline Phosphatase 73 U/L (35-105); Aspartate Amino Transferase 35 U/L (0-32); Blood Urea Nitrogen 17 mg/dL (8-23); Calcium 8.2 mg/dL (8.5-10.5); Carbon Dioxide 21 mmol/L (22-29); Chloride 114 mmol/L (98-107); Globulin 2.8 g/dL (1.3-4.6); Glucose 96 mg/dL (65-115); Magnesium 2.2 mg/dL (1.7-2.3); Osmolality Calculated 303 mOsm/kg (285-295); Sodium 146 mmol/L (136-145); Total Bilirubin 0.8 mg/dL (0.15-1.2); Total Protein 5.5 g/dL (6.6-8.7)
[2023-06-07 05:35] LABS: Anion Gap 14.5 (5-19); Potassium 3.5 mmol/L (3.5-5.1)
[2023-06-07] MEDS: piperacillin-tazobactam 3.375 GM in sodium chloride 0.9% (plus) 50 ML IV ×2 (07:33→16:40)
--- NOTE | 2023-06-07 08:52 | PM.PN ---
Subjective Subjective: Tiffanie awakens easily, carries on a conversation, but is confused. Nursing relates no significant issues overnight. She is no longer requiring norepinephrine Medications: Reviewed: Yes Vitals/I&O/Wt Last Vital Signs Temp 98.7 F 06/07/23 04:00 Pulse 65 06/07/23 06:00 Resp 22 H 06/07/23 06:00 BP 131/73 06/07/23 06:00 Pulse Ox 93 06/07/23 06:00 O2 Del Method Room Air 06/07/23 06:00 06/06/23 06/07/23 06/07/23 22:59 06:59 14:59 Intake Total 211.875 / 3588.371 1388.250 / 2262.125 Output Total 200 / 575 550 / 1125 Balance 11.875 / 621.875 515.250 / 1137.125 Weight last 48 hrs Weight 90.492 kg Weight 88.088 kg Weight 91.49 kg Weight 91.49 kg Physical Exam Narrative: General exam no distress, conversant and confused Neck supple no lymphadenopathy thyromegaly Cardiovascular irregular, irregular with controlled rate. 3/6 systolic murmur heard Lungs diminished breath sounds bilaterally. A few coarse breath sounds bilaterally Abdomen is soft with positive bowel sounds. No obvious organomegaly Extremities show 2+ edema bilaterally. Urinary Catheter Management: Brady: Cath Placed During This Visit: yes Urinary Catheter Date of Insertion: 06/05/23 Urinary Catheter Time of Insertion: 10:23 Data 06/07/23 03:55 06/07/23 03:55 Other Labs: Cultures negative to date Micro: Microbiology 06/05/23 09:37 Blood Culture - Preliminary Blood NEGATIVE TO DATE 06/05/23 09:26 Blood Culture - Preliminary Blood NEGATIVE TO DATE A&P Assessment and plan (1) Hypothermia: Patient is profoundly hypothermic on admission. She was actively warmed, and currently maintaining temperature Significant amount of arrhythmias was noted originally, which have appeared to resolve EKG to be done today (2) Fall: Patient with history of several falls lately No evidence of hemorrhage on CT Fall precautions here Monitor closely for any other injuries. No other injuries noted yet (3) Aspiration pneumonitis: Patient has evidence of aspiration pneumonitis Sputum culture ordered Continue Zosyn IV Blood cultures obtained and negative today (4) Acute metabolic encephalopathy: Patient has acute metabolic encephalopathy superimposed on severe dementia. Continues to improve (5) Rhabdomyolysis: Patient with evidence of rhabdomyolysis, but has evidence of extra fluid on exam CK decreasing Hydration can be discontinued today (6) Atrial fibrillation: Patient with evidence of atrial fibrillation on EKG As hypothermia has resolved will go ahead and initiate full dose Lovenox. She may not be a candidate for full dose anticoagulation if going home secondary to her fall risk. We will evaluate with family when discharge plans have been made Patient has known severe aortic stenosis Will not restart beta-cydney. She did have significant pause yesterday. Continue to monitor heart rate which is stable currently. (7) Lactic acidosis: Secondary to poor perfusion. Now resolved. Norepinephrine discontinued (8) Closed head injury: It is apparent patient has had a closed head injury secondary to the bruising and history of falls. There is no evidence of intracranial/subdural hemorrhage (9) Dementia: Patient with severe dementia. She has had wandering before. We will need to discuss interventions for safe environment (10) Aortic stenosis: History of severe aortic stenosis. Her severe dementia may preclude aggressive management. (11) CHF (congestive heart failure), NYHA class III: Patient with history of congestive heart failure. No evidence of decompensation currently, continue to monitor. Discontinue fluids today. Small dose of Lasix today. CBC, BMP tomorrow to monitor for renal dysfunction. Dose of potassium will be given with Lasix Plan Other medical problems as outlined in past medical history Allow natural Lovenox will suffice for DVT prophylaxis Protonix for GI prophylaxis. May change to p.o. Therapy consultations May transfer out of ICU with telemetry Evaluating whether nursing facility placement is needed, potentially discharge in 1 to 2 days Attestations Medical Necessity Statement*: Needs continued hospitalization, for treatment of aspiration pneumonitis with IV antibiotics Diagnoses Hypothermia T68.XXXA Fall W19.XXXA Aspiration pneumonitis J69.0 Acute metabolic encephalopathy G93.41 Rhabdomyolysis M62.82 Atrial fibrillation I48.91 Lactic acidosis E87.20 Closed head injury S09.90XA Dementia F03.90 Aortic stenosis I35.0 CHF (congestive heart failure), NYHA class III I50.9 Time Spent (min) 26
--- NOTE | 2023-06-07 08:54 | ECG_ITS ---
[facility] Test Date: 2023-06-07 Pat Name: Tiffanie Rosas Department: Room: [id number] Gender: Female Ultrasound Technol: : 1940 Requested By: Rohan Osorio Order Number: [id number] Ramos MD: Moses Serna M.D. Measurements Intervals [place] Rate: 82 P: 49 GA: 227 QRS: 55 QRSD: 145 T: 38 QT: 383 QTc: 448 Interpretive Statements SINUS RHYTHM WITH FIRST DEGREE AV BLOCK RIGHT BUNDLE BRANCH BLOCK [120+ ms QRS DURATION, UPRIGHT V1, 40+ ms S IN I/aVL/V4/V5/V6] Compared to ECG 06/05/2023 14:24:52 First degree AV block now present Right bundle-branch block now present T-wave abnormality no longer present Possible ischemia no longer present Electronically Signed On 06-08-2023 14:17:25 [employer] by Moses Serna M.D. [id number]
[2023-06-07] MEDS: enoxaparin 100 mg/mL Syringe 90 MG SUBCUT ×2 (09:48→21:15)
[2023-06-07] MEDS: pantoprazole DR 40 mg Tablet PO (09:48)
[2023-06-07] MEDS: potassium chloride ER 20 mEq Tablet 40 MEQ PO (09:52)
[2023-06-07] MEDS: FUROsemide 10 mg/mL SDV 2mL 20 MG IVP (09:52)
--- NOTE | 2023-06-07 10:16 | USCV_ITS ---
Tiffanie Rosas Age: 83 Gender: F : 1940 Exam Date: 06/07/2023 11:45 Ordering Phys: Rohan Cunha MD Technologist: Syed Tinsley Exam Location: [facility] [place]_ Indication: bilat leg swelling PROCEDURES: The venous duplex Doppler examination of both lower extremities was performed in the standard fashion. The following venous structures were evaluated: common femoral vein, profunda vein, proximal portion of the greater saphenous vein, superficial femoral vein, and the popliteal vein. In addition, the posterior tibial and peroneal trunk were evaluated. FINDINGS: Normal 2-D Doppler and augmentation and compressibility throughout the lower extremity venous structures. Additional imaging through the proximal calf veins also reveals no thrombus. Limited evaluation of the greater saphenous vein is patent with no thrombus. CONCLUSIONS No evidence of right lower extremity DVT. No evidence of left lower extremity DVT. Saw Quintero MD (Electronically Signed) Final Date: 07 June 2023 13:51 S
--- NOTE | 2023-06-07 12:51 | PC.NURSE ---
Transferred patient to [facility] room 259 bed one. Report given to and patient received by Lauren MANN. No belongings with patient.
--- NOTE | 2023-06-07 15:51 | PC.NURSE ---
SSS reported to this nurse that she thinks pt pulled IV. This nurse entered room and noted IV and zurita w/balloon still intact on floor. Pt appears in no discomfort. Pt cleaned and changed.
[2023-06-08 00:17] VITALS: BP 140/69; PULSE 72; RESP 17; TEMP 36.5; O2SAT 96
[2023-06-08] MEDS: piperacillin-tazobactam 3.375 GM in sodium chloride 0.9% (plus) 50 ML IV ×2 (00:20→09:40)
[2023-06-08 04:48] VITALS: PULSE 59
[2023-06-08 04:59] VITALS: BP 160/80; PULSE 76; RESP 18; TEMP 36.6; O2SAT 97
[2023-06-08 05:13] LABS: Basophils % 0.4 %; Eosinophils # 0.1 10^3/uL (0.0-0.8); Eosinophils % 2.1 %; Lymphocytes # 1.4 10^3/uL (0.8-4.8); Lymphocytes % 25.6 %; Mean Corpuscular HGB Conc 31.7 g/dL (30-55); Mean Corpuscular Hemoglobin 29.6 pg (27-33); Mean Corpuscular Volume 93.5 fl (85-98); Mean Platelet Volume 8.9 fL (7.4-10.4); Monocytes # 0.5 10^3/uL (0.2-0.9); Monocytes % 8.9 %; Neutrophils # 3.31 10^3/uL (1.8-7.7); Neutrophils % 62.6 %; Nucleated Red Blood Cells % 0 %; Platelet Count 181 10^3/cmm (157-399); Red Blood Count 3.85 10^6/uL (3.85-5.65); White Blood Count 5.28 10^3/uL (3.29-11.43)
[2023-06-08 05:50] LABS: Blood Urea Nitrogen 12 mg/dL (8-23); Calcium 8.1 mg/dL (8.5-10.5); Carbon Dioxide 23 mmol/L (22-29); Chloride 111 mmol/L (98-107); Glucose 94 mg/dL (65-115); Magnesium 2.2 mg/dL (1.7-2.3); Osmolality Calculated 298 mOsm/kg (285-295); Sodium 144 mmol/L (136-145)
[2023-06-08 05:53] LABS: Anion Gap 13.8 (5-19); Potassium 3.8 mmol/L (3.5-5.1)
[2023-06-08 07:36] VITALS: BP 159/71; PULSE 80; RESP 16; TEMP 36.7; O2SAT 96
--- NOTE | 2023-06-08 09:28 | PM.DCS ---
Discharge Providers Date of Admission: 06/05/23 11:24 Date of Discharge: June 08, 2023 Attending Provider at Admission: Rohan Cunha MD Attending Provider at Discharge: Rohan Cunha MD Primary Care Provider: Chelle Dumont Diagnoses at Discharge Discharge Diagnosis (1) Hypothermia: Status: Acute (2) Fall: Status: Acute (3) Aspiration pneumonitis: Status: Acute (4) Acute metabolic encephalopathy: Status: Acute (5) Rhabdomyolysis: Status: Acute (6) Atrial fibrillation: Status: Acute (7) Lactic acidosis: Status: Acute (8) Closed head injury: Status: Acute (9) Dementia: Status: Acute (10) Aortic stenosis: Status: Acute Permanent problem details: Severe per last echocardiogram 02/11 (11) CHF (congestive heart failure), NYHA class III: Status: Acute Reason for Visit Reason for Visit: found outside after fall Hospital Course Hospital Course Demi is an 83-year-old white female with severe dementia who presented to the hospital after being found down outside. She was profoundly hypothermic, presenting in atrial fibrillation. There was evidence of aspiration pneumonia. She was placed on IV antibiotics, actively warmed, and followed closely. During her hospital stay she converted to sinus rhythm. At 1 point when already warmed she did have some pauses. Beta-cydney was held secondary to this. Over the course of her hospital stay she gradually improved to her baseline, which was significant dementia. She does have underlying aortic stenosis, severe per last echo and has cardiology appointment in the next 10 days. She will be discharged home today she is in stable condition, with instruction fall prevention, complete a course of Augmentin for aspiration. I discussed her care with her son, who agrees with the plan. Note that a hotline was initiated in the emergency department when the patient came in secondary to concerns of her wandering off from home with exposure. I have also discussed with her son that she should not be left alone. Physical Exam Narrative: General exam no distress Neck is supple Cardiovascular regular rate and rhythm Lungs clear Abdomen is soft Extremities no cyanosis, edema Urinary Catheter Management: Brady: Cath Placed During This Visit: yes Urinary Catheter Date of Insertion: 06/05/23 Urinary Catheter Time of Insertion: 10:23 Discharge Data Studies Completed and Pending Completed Studies During Hospitalization Category Date Time Status CT abdomen pelvis wo con [id number] Stat Cat Scan 06/05/23 08:[address] head wo con* [id number] Stat Cat Scan 06/05/23 08:38 Completed XR chest 1V portable [id number] Stat Exams 06/05/23 08:38 [place] [id number] Routine Ultrasound 06/07/23 10:16 Completed Pending at discharge Category Date Time Status Blood Culture Stat Lab 06/05/23 09:37 Results Sputum Culture and Gram Stain Routine Lab 06/06/23 09:03 Uncollected Laboratory Results WBC 5.28 10^3/uL (3.29-11.43) 06/08/23 05:05 RBC 3.85 10^6/uL (3.85-5.65) 06/08/23 05:05 Hgb 11.40 g/dL (11.27-16.99) 06/08/23 05:05 Hct 36.0 % (36-47) 06/08/23 05:05 MCV 93.5 fl (85-98) 06/08/23 05:05 MCH 29.6 pg (27-33) 06/08/23 05:05 MCHC 31.7 g/dL (30-55) 06/08/23 05:05 RDW 15.0 % (12.1-15.1) 06/08/23 05:05 Plt Count 181 10^3/cmm (157-399) 06/08/23 05:05 MPV 8.9 fL (7.4-10.4) 06/08/23 05:05 Neut % (Auto) 62.6 % 06/08/23 05:05 Lymph % (Auto) 25.6 % 06/08/23 05:05 Josephine % (Auto) 8.9 % 06/08/23 05:05 Eos % (Auto) 2.1 % 06/08/23 05:05 Baso % (Auto) 0.4 % 06/08/23 05:05 Neut # (Auto) 3.31 10^3/uL (1.8-7.7) 06/08/23 05:05 Lymph # (Auto) 1.4 10^3/uL (0.8-4.8) 06/08/23 05:05 Josephine # (Auto) 0.5 10^3/uL (0.2-0.9) 06/08/23 05:05 Eos # (Auto) 0.1 10^3/uL (0.0-0.8) 06/08/23 05:05 Baso # (Auto) 0.0 10^3/uL (0.0-0.1) 06/08/23 05:05 Nucleated RBC % (auto) 0 % 06/08/23 05:05 Nucleated RBCs # 0.0 /100WBC 06/08/23 05:05 Specimen Type Arterial 06/05/23 08:46 Sample Site Radial, right 06/05/23 08:46 ABG pH 7.30 (7.35-7.45) L 06/05/23 08:46 ABG pCO2 47.1 mmHg (35-45) H 06/05/23 08:46 ABG pO2 101.0 mmHg (80.0-100.0) H 06/05/23 08:46 ABG PO2/FiO2 Ratio 0 06/05/23 08:46 ABG HCO3 22.9 mmol/L (22-26) 06/05/23 08:46 ABG O2 Saturation 96.5 06/05/23 08:46 ABG Base Excess -3.9 mmol/L (-2.0-2.0) L 06/05/23 08:46 Deion Test Pos 06/05/23 08:46 A-a O2 Gradient Not Reportable 06/05/23 08:46 Hematocrit 48.5 % (37-47) H 06/05/23 08:46 Hgb O2 Saturation 95.7 % (95-100) 06/05/23 08:46 Carboxyhemoglobin 0.4 %THgb (0.4-20.1) 06/05/23 08:46 Methemoglobin 0.4 % (0.4-1.5) 06/05/23 08:46 Total Hemoglobin 15.8 g/dL (12-16) 06/05/23 08:46 Sodium 141.0 mmol/L (131-143) 06/05/23 08:46 Potassium 4.0 mmol/L (3.5-5.0) 06/05/23 08:46 Glucose 147.0 mg/dL (70-115) H 06/05/23 08:46 Ionized Calcium 1.2 mmol/L (1.1-1.4) 06/05/23 08:46 O2 Delivery Device Room air 06/05/23 08:46 FiO2 21.0 % 06/05/23 08:46 Sustainable Products Marketing Manager ID Cak 06/05/23 08:46 Sodium 144 mmol/L (136-145) 06/08/23 05:05 Potassium 3.8 mmol/L (3.5-5.1) 06/08/23 05:05 Chloride 111 mmol/L (98-107) H 06/08/23 05:05 Carbon Dioxide 23 mmol/L (22-29) 06/08/23 05:05 Anion Gap 13.8 (5-19) 06/08/23 05:05 BUN 12 mg/dL (8-23) 06/08/23 05:05 Creatinine 1.0 mg/dL (0.5-0.9) H 06/08/23 05:05 GFR Calculation Not Reportable 06/08/23 05:05 Glucose 94 mg/dL (65-115) 06/08/23 05:05 POC Glucose 194 mg/dL (70-110) H 06/06/23 16:48 Calculated Osmolality 298 mOsm/kg (285-295) H 06/08/23 05:05 Lactic Acid 3.3 mmol/L (0.5-2.2) H 06/05/23 09:26 Lactic Acid (Sepsis) 4.2 mmol/L (0.5-2.2) H* 06/05/23 11:25 Calcium 8.1 mg/dL (8.5-10.5) L 06/08/23 05:05 Magnesium 2.2 mg/dL (1.7-2.3) 06/08/23 05:05 Total Bilirubin 0.8 mg/dL (0.15-1.2) 06/07/23 03:55 AST 35 U/L (0-32) H 06/07/23 03:55 ALT 23 U/L (0-33) 06/07/23 03:55 Alkaline Phosphatase 73 U/L (35-105) 06/07/23 03:55 Creatine Kinase 379 U/L (26-192) H* 06/06/23 03:38 Troponin T Baseline 77 ng/L (0-10) H 06/05/23 09:26 Troponin T 120 Minute 63.31 ng/L (0-10) H 06/05/23 11:25 Delta Troponin T -13.69 ABS# (0-10) L 06/05/23 11:25 Troponin T Hi Sens 6Hr 85.11 ng/L (0-10) H 06/05/23 16:00 Troponin T Hi Sens 6Hr Delta 8.11 ng/L (0-12) 06/05/23 16:00 Total Protein 5.5 g/dL (6.6-8.7) L 06/07/23 03:55 Albumin 2.7 g/dL (3.5-5.2) L 06/07/23 03:55 Globulin 2.8 g/dL (1.3-4.6) 06/07/23 03:55 Lipase 30 U/L (13-60) 06/05/23 08:45 TSH 2.92 uIU/mL (0.27-4.20) 06/05/23 09:26 Urine Color Yellow (Yellow) 06/05/23 10:15 Urine Appearance Clear (CLEAR) 06/05/23 10:15 Urine pH 6 (5-7) 06/05/23 10:15 Ur Specific [place] 1.025 (1.005-1.030) 06/05/23 10:15 Urine Protein Neg (Negative) 06/05/23 10:15 Urine Glucose (UA) Norm (Normal) 06/05/23 10:15 Urine Ketones Negative (Negative) 06/05/23 10:15 Urine Blood Neg (Negative) 06/05/23 10:15 Urine Nitrate Negative (Negative) 06/05/23 10:15 Urine Bilirubin Neg (Negative) 06/05/23 10:15 Urine Urobilinogen Norm mg/dL (Negative) 06/05/23 10:15 Ur Leukocyte Esterase Negative (Negative) 06/05/23 10:15 Vitals Last Vital Signs Temp 98.0 F 06/08/23 07:36 Pulse 80 06/08/23 07:36 Resp 16 06/08/23 07:36 BP 159/71 06/08/23 07:36 Pulse Ox 96 06/08/23 07:36 O2 Del Method Room Air 06/08/23 07:36 Discharge Plan Discharge Patient Disposition: Home Health Service Condition: Stable Prescriptions: New pantoprazole 40 mg Tablet,Delayed Release (Dr/Ec) 40 mg PO DAILY Qty: 30 0RF amoxicillin-pot clavulanate 875-125 mg tablet 1 tab PO BID Qty: 8 0RF Continued potassium chloride 20 mEq tablet,ER particles/crystals 20 meq PO BEDTIME 4-Function Brain Support 2 tab PO QAM Calcium + D 600 mg-5 mcg (200 unit) Tablet 2 tab PO QAM garlic 1,000 mg Capsule 1,000 mg PO QAM L-Carnitine 500 mg Tablet 500 mg PO QAM nystatin 100,000 unit/gram cream 1 applic TOPICAL . DIRECTED [place] 3 Capsule 1,000 mg PO QAM cranberry extract 500 mg Tablet 500 mg PO QAM green tea leaf extract 500 mg Capsule 500 mg PO QAM Brain Performance Support 2 tab PO QAM Folate 333 mg PO QAM L-Arginine 500mg 1,000 mg PO QAM Mushroom Complex 6,200 mg PO QAM furosemide 40 mg tablet 40 mg PO QAM Discontinued metoprolol tartrate 25 mg tablet 25 mg PO BID Qty: 60 6RF Discharge Orders: Discharge Order (Routine); Ordered 06/08/23 Ordered By: Rohan Cunha Referrals: Chelle Dumont PA [Primary Care Provider] - 4-7 days Discharge Diet: Usual diet Discharge Activity: Increase activity as tolerated Patient Instructions: Hyponatremia (ED), Benzodiazepine Use Disorder (ED), Dementia (ED), Non-diabetic Hypoglycemia (ED), Hypoglycemia in a Person with Diabetes (ED), Concussion (ED), Alcohol Intoxication (ED), Subarachnoid Hemorrhage (GEN), Altered Mental Status (ED), Opioid Safety Activity Restrictions/Additional Instructions: Take all medicine as prescribed Follow-up with your primary care provider 3 to 5 days Fall prevention Discontinue metoprolol. This was discontinued secondary to sinus pause, low heart rate in the hospital Discharge Attestations Time Spent in Discharge Care*: greater than 30 min Quality Metrics Clinical Quality Measures [ No reported AMI, CVA or VTE this stay] Coding Level of Care Code 04973 Total time (in minutes) for Discharge: 39 Diagnoses Hypothermia T68.XXXA Fall W19.XXXA Aspiration pneumonitis J69.0 Acute metabolic encephalopathy G93.41 Rhabdomyolysis M62.82 Atrial fibrillation I48.91 Lactic acidosis E87.20 Closed head injury S09.90XA Dementia F03.90 Aortic stenosis I35.0 CHF (congestive heart failure), NYHA class III I50.9
[2023-06-08] MEDS: enoxaparin 100 mg/mL Syringe 90 MG SUBCUT (09:41)
[2023-06-08] MEDS: pantoprazole DR 40 mg Tablet PO (09:41)
== END 2023-06-08 11:34 | disposition home health service (06) | DRG 922 ==
LOC: ER 08:43 → ICU 11:25 → MEDSURG 06-07 12:42
PROVIDERS: Admitting Provider Internal Medicine; Emergency Provider Family Medicine; PCP Physician Assistant; Visit Provider Internal Medicine
DX: T68.XXXA Hypothermia, initial encounter (principal); G93.41 Metabolic encephalopathy; J69.0 Pneumonitis due to inhalation of food and vomit; N17.9 Acute kidney failure, unspecified; E87.20 Acidosis, unspecified; M62.82 Rhabdomyolysis; F03.C0 Unspecified dementia, severe, without behavioral disturbance, psychotic disturbance, mood disturbance, and anxiety; R29.6 Repeated falls; I35.0 Nonrheumatic aortic (valve) stenosis; I11.0 Hypertensive heart disease with heart failure; I50.9 Heart failure, unspecified; K21.9 Gastro-esophageal reflux disease without esophagitis; I48.91 Unspecified atrial fibrillation; Z96.653 Presence of artificial knee joint, bilateral; X31.XXXA Exposure to excessive natural cold, initial encounter
CPT/HCPCS: 36415; 36416; 36600; 51701; 51702; 70450; 71045; 72125; 74176; 80048; 80051; 80053; 81003; 82330; 82550; 82805; 82962; 83605; 83690; 83735; 84443; 84484; 85025; 87040; 92610; 93005; 93970; 96365; 96372; 97116; 97162; 97167; 97530; 97535; 99284; 99285; C9113; J1650; J1940; J2543; J7030

== ENCOUNTER → 2023-06-21 09:58 | Outpatient (BNVA) | payer OTHER, SELFPAY | PROVIDERS: PCP Physician Assistant; Visit Provider Internal Medicine Cardiovascular Disease | DX: I35.0 Nonrheumatic aortic (valve) stenosis (principal) | CPT/HCPCS: 99214 ==

== ENCOUNTER 2025-04-03 21:30 | Emergency (ER) | payer MEDICARE, OTHER, SELFPAY ==
--- OUTSIDE RECORDS SUMMARY | 2024-01-12 04:00 | XMS_ITS ---
Author Organization [facility] Address [address] [place] [address] Care Team Providers Care Zone Maintenance Technician Name Role Phone Migration, Provider Unavailable Unavailable REASON FOR VISIT EMR-[facility] Encounters Encounter Location Date Provider Diagnosis Migrated_Facility 0 0 01/12/2024 Provider Migration Plan Of Treatment Medication Medication Name Sig Start Date Stop Date Notes Amoxicillin 500 MG Capsule Oral 06/05/2019 9 Progress Notes * MARY ELLEN LOVING LDOB: [birth year] (84 yo F)Acc No.[id number]:01/12/2024 Patient: Christiane MARY ELLEN STAFFORD :1940 A ge:83 Y S ex:Female Address:[address] [place] [id number] * Refills Stop Amoxicillin Capsule, 500 MG, Oral Stop Amoxicillin Capsule, 500 MG, Oral Subjective: * Chief Complaints: * E MR-Sina * * Date:
--- OUTSIDE RECORDS SUMMARY | 2024-01-13 04:00 | XMS_ITS ---
Author Organization [facility] Address [address] [place] [address] Care Team Providers Care Optical Manager Name Role Phone Migration, Provider Unavailable Unavailable Allergies Allergen (clinical drug ingredient) Drug/Non Drug Allergy documented on EMR Reaction Allergy Type Onset Date Status meclizine Meclizine , Drug Allergy Active REASON FOR VISIT EMR-Sina Medications Medication SIG (Take, Route, Frequency, Duration) Notes Start Date End Date Status Lisinopril 20 MG Tablet Oral 07/10/2018 Active vitamin E 450 MG Oral Capsule ORAL *Reorder from [facility] for eRx and Interaction Alerts* 07/10/2018 Active 24 HR diltiazem hydrochloride 120 MG Extended Release Oral Capsule [Cartia] ORAL *Reorder from [facility] for eRx and Interaction Alerts* 07/10/2018 Active Terazosin 10 MG Oral Capsule ORAL *Reorder from [facility] for eRx and Interaction Alerts* 07/10/2018 Active Triamcinolone Acetonide 0.0005 MG/MG Topical Ointment CUTANEOUS *Reorder from [facility] for eRx and Interaction Alerts* 07/10/2018 Active oxyBUTYnin Chloride 5 MG Tablet Oral 05/14/2019 12/10/2019 Active Social History Social History Additional Details Category Social Info Options Details Migrated Social History Migrated Social History History of tobacco use : , Smoking Status : Former smoker Encounters Encounter Location Date Provider Diagnosis Migrated_Facility 0 0 01/13/2024 Provider Migration Plan Of Treatment No Information Progress Notes * MARY ELLEN LOVING LDOB: [birth year] (84 yo F)Acc No.[id number]:01/13/2024 Patient: Christiane STAFFORDMARY ELLEN :1940 A ge:83 Y S ex:Female Address:[address], [place] [address] Subjective: * Chief Complaints: * E MR-Sina * Family History: F ather: PRN - Father: :: Cancer,,known absent . M other: PRN - Mother: :: Diabetes,,known absent . * Social History: M igrated Social History: M igrated Social History: History of tobacco use : , Smoking Status : Former smoker. * Medications: T akingLisinopril 20 MG Tablet Oral oxyBUTYnin Chloride 5 MG Tablet Oral , stop date 12/10/2019Triamcinolone Acetonide 0.0005 MG/MG Topical Ointment CUTANEOUS , Notes to Pharmacist: *Reorder from [facility] for eRx and Interaction Alerts*Terazosin 10 MG Oral Capsule ORAL , Notes to Pharmacist: *Reorder from [facility] for eRx and Interaction Alerts*24 HR diltiazem hydrochloride 120 MG Extended Release Oral Capsule [Cartia] ORAL , Notes to Pharmacist: *Reorder from [facility] for eRx and Interaction Alerts*vitamin E 450 MG Oral Capsule ORAL , Notes to Pharmacist: *Reorder from [facility] for eRx and Interaction Alerts*Taking Lisinopril 20 MG Tablet Oral Taking oxyBUTYnin Chloride 5 MG Tablet Oral , stop date 12/10/2019Taking Triamcinolone Acetonide 0.0005 MG/MG Topical Ointment CUTANEOUS , Notes to Pharmacist: *Reorder from [facility] for eRx and Interaction Alerts*Taking Terazosin 10 MG Oral Capsule ORAL , Notes to Pharmacist: *Reorder from [facility] for eRx and Interaction Alerts*Taking 24 HR diltiazem hydrochloride 120 MG Extended Release Oral Capsule [Cartia] ORAL , Notes to Pharmacist: *Reorder from [facility] for eRx and Interaction Alerts*Taking vitamin E 450 MG Oral Capsule ORAL , Notes to Pharmacist: *Reorder from [facility] for eRx and Interaction Alerts* * Allergies: M eclizine: , - Allergy * * Date:
[2025-04-03 21:36] VITALS: BP 122/64; PULSE 61; RESP 16; TEMP 36.5; O2SAT 91; BMI 27.9
[2025-04-03 21:45] VITALS: BP 121/66; PULSE 58; RESP 20; O2SAT 94
--- OUTSIDE RECORDS SUMMARY | 2025-04-03 21:47 | XMS_ITS | Clinical Summary ---
Author Organization [facility] Address [address] [facility] [address] [place] [address] Care Team Providers Care Contracting Engineer Name Role Phone German Skinner MD Primary Care Provider [phone] [phone] Allergies Active Allergy Reactions Criticality Noted Date Comments Mecliziparker Hives High 01/01/2008 Medications ASPIRIN 81 mg Oral Tab Take by mouth daily. Active MULTIVITAMIN Oral Tab Take 1 Tab by mouth daily. Active NAPROXEN SODIUM (ALEVE ORAL) Take 400 mg by mouth see administration instructions. PRN 06/22/20 10 Active vitamin B complex (VITAMIN B COMPLEX) Oral TabIndications:N ontoxic multinodular goiter Take 1 Tab by mouth daily. Active vit C-iepvlvyg-ytfue hicone (CETAPHIL) Lotion Apply to affected area 4 times daily as needed. Active vitamin E 200 unit Capsule Take 200 Units by mouth daily. Active MAGNESIUM ORAL Take by mouth. Active terazosin (HYTRIN) 2 mg capsule TAKE 1 CAPSULE BY MOUTH ONCE DAILY AT BEDTIME 90 Capsule 1 07/09/20 19 Active TURMERIC ORAL Take by mouth daily. Active OTHER daily. Radhain Active potassium chloride (KLOR-CON) 20 mEq Extended Release tabletIndication s:Chronic diastolic CHF (congestive heart failure) (CMS/HCC),Essent ial hypertension Take 1 Tablet (20 mEq) by mouth daily. 90 Tablet 01/12/20 20 Active furosemide (Lasix) 40 mg tabletIndication s:Chronic diastolic CHF (congestive heart failure) (CMS/HCC),Essent ial hypertension Take 1 Tablet (40 mg) by mouth daily. 30 Tablet 04/12/20 20 Active lisinopriL (PRINIVIL) 20 mg tabletIndication s:Encounter for wellness examination,Dysl ipidemia TAKE 1 TABLET BY MOUTH TWO TIMES A DAY 180 Tablet 3 10/23/19 21 Active Active Problems Problem Noted Date Diagnosed Date Aortic stenosis 12/24/2017 Chronic diastolic CHF (congestive heart failure) 12/24/2017 Carpal tunnel syndrome of left wrist 03/27/2017 History of adenomatous polyp of colon 02/23/2016 Left ventricular hypertrophy 07/09/2014 Diastolic dysfunction 07/09/2014 Nontoxic multinodular goiter 01/04/2011 Overview (10/09/2017): Lab Results Component Value Date/Time TSH 1.84 04/04/2017 07:54 AM Assessment & Plan (10/09/2017 11:56 AM CDT): Stable. Continue current medication Right Carpal tunnel syndrome 06/29/2010 Essential hypertension Overview (10/09/2017): BP Readings from Last 3 Encounters: 10/09/17 (!) 170/80 05/03/17 (!) 180/87 04/20/17 (!) 156/61 Osteoarthrosis, unspecified whether generalized or localized, unspecified site Spinal stenosis Dyslipidemia Resolved Problems Problem Noted Date Diagnosed Date Resolved Date Hx of colonic polyp 02/15/2016 02/23/20 16 Hyperplastic colon polyp 11/02/201009/2015 Special screening for malign ant neoplasms, colon 09/27/2010 02/23/2016 Immunizations Immunization Administration Dates Next Due Influenza A (H1N1) Vaccine IM 06/10/2016 Influenza Seasonal Unspecified Formulation IM ,04/10/2019 Influenza Vaccine High Dose 65+ Yrs IM 8,06/23/2015 Influenza Vaccine Split 3+ Yrs PF IM 06/25/2014 Influenza Vaccine Tri Adjuvanted 65+ PF IM 04/10 PREVNAR (PCV13) pneumococcal 13-valent conjugate Vaccine 08/11/2016 Family History Medical History Relation Name Comments Colon Cancer Maternal Aunt Diabetes Mother Heart Disease Mother Hypertension Mother Breast Cancer Neg Hx Ovarian Cancer Neg Hx Relation Name Status Comments Daughter NONE Father Alive Maternal Aunt Maternal Grandmother Mother Sister 1 Alive Sister 2 Alive Sister 3 Alive Social History Tobacco Use Types Packs/Day Years Used Date Smoking Tobacco: Never Smokeless Tobacco: Never Tobacco Cessation:Counseling Given: No Alcohol Use Standard Drinks/Week Comments No 0 (1 standard drink = 0.6 oz pur e alcohol) Financial Resource Strain Answer Date R ecorded How hard is it for you to pa y for the very basics like food, housing, medical care, and heating? Not hard at all 10/22/2020 Food Insecurity Answer Date Recorded In the past 12 months, have you worried that your food would run out before you had money to buy more? Sometimes true 2020 In the past 12 months, did y ou run out of food and didn't have money to buy more? Sometimes true 10/22/2020 Transportation Needs Answer Date Record ed In the past 12 months, has l ack of transportation kept you from medical appointments or from getting medications? 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 Gender Identity Not on file Sexual Orientation Not on file Occupation Industry Job Start Date Job End Date Not on file Not on file Not on file Not on file Last Filed Vital Signs Vital Sign Reading Time Taken Comments Blood Pressure 156/82 10/22/2020 11:20 AM CDT Pulse 72 10/22/2020 10:16 AM CDT Temperature 36.2 C (97.1 F) 10/22/2020 10:16 AM CDT Respiratory Rate 20 10/22/2020 10:16 AM CDT Oxygen Saturation 98% 10/22/2020 10:16 AM CDT Inhaled Oxygen Concentration - - Weight 97.3 kg (214 lb 9.6 oz) 10/22/2020 10:16 AM CDT Height 165.1 cm (5' 5 ) 10/22/2020 10:16 AM CDT Body Mass Index 35.71 10/22/2020 10:16 AM CDT Plan of Treatment Health Maintenance Due Date Last Done Comments DTAP/TDAP/TD VACCINES (1 - Tdap) 1958 ZOSTER VACCINE (1 of 2) 1989 RSV VACCINE (60+ or ) (1 - 1-dose 75+ series) 2014 PNEUMOCOCCAL VACCINE 50+ YEA RS (2 of 2 - PPSV23, PCV20, or PCV21) 10/06/2016 08/11/2016, 08/11/2016 OSTEOPOROSIS SCREENING 01/22/2018 3, 11/08/2011, 11/07/2011 COLORECTAL SCREENING 02/14/2021 02/15/2016, 10/26/2010 (Previously completed) [place] Preventative Visit/Annual Wellness Visit 07/23/2024 10/22/2020, 04/29/2019, 03/14/2017, Additional history exists INFLUENZA VACCINE (#1) 2025 0, 04/10/2019, 04/10/2019, Additional history exists Procedures Procedure Name Priority Date/Time Associated Diagnosis Comments XR DEXA BONE DENSITY APPENDICULAR Routine 01/22/2013 10:19 AM CDT ABSENCE OF MENSTRUATION At risk for osteopenia from Last 3 Months or Most Recently Relevant to Health Maintenance Results * XR DEXA BONE DENSITY APPENDICULAR (01/22/2013 10:19 AM CDT) T-SCORE HEEL (LEFT) T-SCORE HEEL (RIGHT) T-SCORE HEEL >=-0.99 T-SCORE WRIST (LEFT) T-SCORE WRIST (RIGHT) T-SCORE WRIST >=-0.99 Anatomical Region Laterality Modality Other Narrative 01/22/2013 10:19 AM CDT Final status, see scanned documents. Procedure Note Sgf Adriana Gerardo, Radiologist, MD - 01/22/2013 Final status, see scanned documents. us Toshia Burch MUSIC SPECIALIST DIAGNOSTIC IMAGING ORDERABL ES Final Result from Last 3 Months or Most Recently Relevant to Health Maintenance Insurance [address] [place] [address] [place] [address] [facility] Advance Directives For more information, please contact: [phone] * Full Code (Latest Code Status on File) Date Activated Date Inactivated Comments 02/15/2016 10:50 AM 02/15/2016 1:27 PM * Full Code Date Activated Date Inactivated Comments 06/29/2010 2:54 PM 06/30/2010 3:07 AM * Full Code Date Activated Date Inactivated Comments 06/29/2010 2:29 PM 06/29/2010 2:54 PM Care Teams Contracting Engineer Relationship Specialty Start Date End Date German Skinner MD [address] [phone] PCP - General Family Practice 04/21/19
--- OUTSIDE RECORDS SUMMARY | 2025-04-03 21:47 | XMS_ITS | Encounter Summary ---
Author Organization [facility] Address [address] [place] [address] Care Team Providers Care Siding Stapler Name Role Phone German Skinner MD Primary Care Provider [phone] [phone] Encounter Details Date Type Department Care Team (Late st Contact Info) Description 02/18/2007 Outpatient Historical [facility] Cardiology- [place] [address] [place] [address] Markell Blood MD [address] [facility] [address] [place] [address] Mitral Valve Disorder (Primary Dx); Unspecified Essential Hypertension; Cardiomegaly Social History Tobacco Use Types Packs/Day Years Used Date Smoking Tobacco: Never Assessed Comments Unknown Sex and Gender Information Value Date Recorded Sex Assigned at Not on file Legal Sex Female 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
--- OUTSIDE RECORDS SUMMARY | 2025-04-03 21:47 | XMS_ITS | Encounter Summary ---
Author Organization [facility] Address [address] [place] [address] Care Team Providers Care Dance Historian Name Role Phone German Skinner MD Primary Care Provider [phone] [phone] Encounter Details Date Type Department Care Team (Latest Contact Info) Description 01/10/2007 Outpatient Historical [facility] [place] [address] [address] Toshia Burch, SUPPOSITORY MOLDING MACHINE OPERATOR [address] [place] [address] Other and Unspecified Mitral Valve Diseases (Primary Dx) Social History Tobacco Use Types Packs/Day Years Used Date Smoking Tobacco: Never Assessed Comments Unknown Sex and Gender Information Value Date Recorded Sex Assigned at Not on file Legal Sex Female 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
--- OUTSIDE RECORDS SUMMARY | 2025-04-03 21:47 | XMS_ITS | Encounter Summary ---
Author Organization [facility] Address [address] [place] [address] Care Team Providers Care Chaperon Name Role Phone German Skinner MD Primary Care Provider [phone] [phone] Encounter Details Date Type Department Care Team (Latest Contact Info) Description 04/23/2007 Outpatient Historical [facility] Breast Center [address] [facility] [address] [place] [address] José Tate MD NO ADDRESS ON FILE Other Sign and Symptom in Breast (Primary Dx) Social History Tobacco Use Types Packs/Day Years Used Date Smoking Tobacco: Never Assessed Comments Unknown Sex and Gender Information Value Date Recorded Sex Assigned at Not on file Legal Sex Female 4:12 AM PRIVATE DUTY LPN Gender Identity Not on file Sexual Orientation Not on file documented as of this encounter Plan of Treatment Not on file documented as of this encounter Procedures Procedure Name Priority Date/Time Associated Diagnosis Comments CHG MAMMOGRAPHY BILATERAL 06/22/2008 Other Sign and Symptom in Breast documented in this encounter Results * CHG MAMMOGRAPHY; BILATERAL (06/22/2008) José Tate MD [place] - IMAG[facility] Final Resu lt documented in this encounter Visit Diagnoses Diagnosis Other sign and symptom in breast- Primary documented in this encounter Care Teams Chaperon Relationship Specialty Start Date End Date German Skinner MD [address] [facility] [address] [place] [phone] PCP - General Family Practice 04/21/19 documented as of this encounter
--- OUTSIDE RECORDS SUMMARY | 2025-04-03 21:47 | XMS_ITS | Encounter Summary ---
Author Organization [facility] Address [address] [place] [address] Care Team Providers Care Creative Services Coordinator Name Role Phone German Skinner MD Primary Care Provider [phone] [phone] Encounter Details Date Type Department Care Team (Latest Contact Info) Description 01/29/2007 Outpatient Historical [facility] Family Medicine [place] [address] [address] Toshia Burch, GL ACCOUNTANT [address] [place] [address] Leukorrhea, not Specified as Infective (Primary Dx); Other Malaise and Fatigue Social History Tobacco Use Types Packs/Day Years Used Date Smoking Tobacco: Never Assessed Comments Unknown Sex and Gender Information Value Date Recorded Sex Assigned at Not on file Legal 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
--- OUTSIDE RECORDS SUMMARY | 2025-04-03 21:47 | XMS_ITS | Clinical Summary ---
Author Organization [facility] Address [address] [facility] [address] [place] [address] Care Team Providers Care Vest Backer Name Role Phone German Skinner MD Primary Care Provider [phone] [phone] Allergies Active Allergy Reactions Criticality Noted Date Comments Hydrocodone-Acetamin ophen Other (See Comments) 01/04/2024 Son states she was hyper-sensitive to it and it caused extreme lethargy. Medications TURMERIC ORAL Take by mouth daily. 11/24/2019 Active lisinopriL (PRINIVIL) 20 mg tabletIndicatio ns:Encounter for wellness examination,Dys lipidemia TAKE 1 TABLET BY MOUTH TWO TIMES A DAY 180 Tablet 3 10/22/2020 Active vitamin E 100 unit Capsule Take 100 Units by mouth daily. Active magnesium oxide 250 mg magnesium Tablet Take by mouth. Active MAGNESIUM ORAL Take by mouth. 04/17/2017 Active vitamin E 200 unit Capsule Take 200 Units by mouth daily. 12/19/2016 Active vit U-hsthfttx-hfcr thicone (CETAPHIL) Lotion Apply to affected area 4 times daily as needed. 12/19/2016 Active Arginine, L-Arginine, 500 mg Capsule Take 1 Capsule by mouth daily. Active aspirin (ECOTRIN EC) 81 mg Tablet, Delayed Release (E.C.) Take 81 mg by mouth daily. Active calcium-vitamin D3 (CALTRATE 600+D) 600 mg-5 mcg (200 unit) Tablet Take 2 Tablets by mouth daily. Active furosemide (LASIX) 40 mg tablet Take 40 mg by mouth daily. Active green tea leaf extract 500 mg Capsule Take 1 Capsule by mouth daily. Active metoprolol tartrate (LOPRESSOR) 25 mg tablet Take 25 mg by mouth 2 times daily. Active D6-yilmu-J35-co ffee-phosphatid (Neuriva Plus Brain Performance) 1.7 mg-400 mcg- 2.4 mcg Capsule Take 1 Capsule by mouth daily. Active pantoprazole (PROTONIX) 40 mg Tablet, Delayed Release (E.C.) Take 40 mg by mouth daily. Active potassium chloride (KLOR-CON) 20 mEq Extended Release tablet Take 20 mEq by mouth 2 times daily. Active omega-3 acid ethyl esters (LOVAZA) 1 gram Capsule Take 1 Gram by mouth daily with breakfast. Active divalproex (DEPAKOTE SPRINKLES) 125 mg capsule Take 2 Capsules (250 mg) by mouth every 12 hours. 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 Overview (11/18/2020): Lab Results Component Value Date/Time TSH 1.84 04/04/2017 07:54 AM Right Carpal tunnel syndrome 06/29/2010 Essential hypertension Overview (11/18/2020): BP Readings from Last 3 Encounters: 10/09/17 (!) 170/80 05/03/17 (!) 180/87 04/20/17 (!) 156/61 Spinal stenosis Dyslipidemia Osteoarthrosis, unspecified whether generalized or localized, unspecified site Resolved Problems Problem Noted Date Diagnosed Date Resolved Date Hx of colonic polyp 02/15/2016 02/23/20 16 Hyperplastic colon polyp 11/02/201009/2015 Special screening for malign ant neoplasms, colon 09/27/2010 02/23/2016 Encounters Date Type Department Care Team Description 03/31/2025 External Device Data [facility] ABSTRACTION Provider, Abstract 01/27/2025 External Device Data [facility] ABSTRACTION Provider, Abstract from Last 3 Months Immunizations Immunization Administration Dates Next Due Influenza [...] Date Smoking Tobacco: Never Smokeless Tobacco: Never Alcohol Use Standard Drinks/Week Comments No 0 [...] of Transportation (Non-Medical) Not on file 10/22/2020 Feeling Safe Answer Date Recorded Are you in a relationship wi th someone who hurts you emotionally and/or physically? No 01/04/2024 Food Insecurity Answer Date Recorded Patient needs follow up regardin 11/12/2024 Transportation Needs Answer Date Record ed Patient needs follow up regardin 11/12/2024 Utility Needs Answer Date Recorded Patient needs follow up regardin 11/12/2024 Comments No Sex and Gender Information Value Date Recorded Sex Assigned at Not on file Legal Sex Female 4:51 PM BARTENDER HELPER Gender Identity Not on file Sexual Orientation Not on file Last Filed Vital Signs Vital Sign Reading Time Taken Comments Blood Pressure 107/68 01/09/2024 8:00 AM CDT Pulse 49 01/09/2024 8:00 AM CDT Temperature 35.8 C (96.5 F) 01/08/2024 8:24 PM CDT Respiratory Rate 17 01/09/2024 8:00 AM CDT Oxygen Saturation 97% 01/09/2024 8:00 AM CDT Inhaled Oxygen Concentration - - Weight 79 kg (174 lb 3.2 oz) 01/04/2024 10:29 AM CDT Height 165.1 cm (5' 5 ) 01/04/2024 10:29 AM CDT Body Mass Index 28.99 01/04/2024 10:29 AM CDT Plan of Treatment Health Maintenance Due Date Last Done Comments DTAP/TDAP/TD VACCINES (1 - Tdap) 1958 ZOSTER VACCINE (1 of 2) 1989 RSV VACCINE (60+ or ) (1 - 1-dose 75+ series) 2014 PNEUMOCOCCAL VACCINE 50+ YEA RS (2 of 2 - PPSV23, PCV20, or PCV21) 10/06/2016 08/11/2016 OSTEOPOROSIS SCREENING 01/22/2018 3, 01/22/2013, 11/08/2011, Additional history exists COLORECTAL SCREENING 02/14/2021 02/15/2016 [place] Preventative Visit/Annual Wellness Visit 07/23/2024 INFLUENZA VACCINE (#1) 2025 2, 06/24/2020, 05/23/2020, Additional history exists COVID-19 Vaccine (3 - 2024-2 6 season) 2025 10/12/2020, 09/14/2020 Procedures Procedure Name Priority Date/Time Associated Diagnosis Comments XR DEXA BONE DENSITY APPENDICULAR Routine 01/22/2013 10:19 AM CDT Absence of menstruation Other specified condition influencing health from Last 3 Months or Most Recently Relevant to Health Maintenance Results * XR DEXA BONE DENSITY APPENDICULAR (01/22/2013 10:19 AM CDT) Anatomical Region Laterality Modality Other Narrative 01/22/2013 10:19 AM CDT Final status, see scanned documents. Procedure Note Conversion, Auto Data - 09/22/2022 Final status, see scanned documents. Toshia Burch CERTIFIED NEURODIAGNOSTIC TECHNOLOGIST DIAGNOSTIC IMAGING ORDERABL ES Final Result from Last 3 Months or Most Recently Relevant to Health Maintenance Insurance [facility] [employer] ADV MEDIPAK ADV HMO [id number] MCR * Guarantor: HOSPICE V [facility]RU Z (C) Account Type Relation to Patient Date of Phone Billing Address Corporate [place] [address] GENERIC PAYOR Member Subscriber Plan / Payer (Ef fective 2023-Present) Name:Mary Ellen Loving Relation to Subscriber:Self Name:Mary Ellen Loving Payer ID:Not on file Group ID:Not on file Type:Hospice Address: [address] [place] [id number] Advance Directives For more information, please contact: [phone] * Comfort Measures Only (Latest Code Status on File) Date Activated Date Inactivated Comments 01/04/2024 10:26 AM 01/09/2024 12:05 PM Comfort Me asures Only: Goals of treatment are directed to patient comfort and symptom management; No CPR in the event of cardiopulmonary arrest; No intubation for respiratory distress, and no aggressive interventions (unless directed toward patient comfort). * NO CPR (In Event of Cardiopulmonary Arrest) Date Activated Date Inactivated Comments 06/28/2023 5:33 PM 07/03/2023 1:01 PM Question Answer Comments Mechanical Ventilation (for respiratory distress) - Invasive (i.e. intubation): No Mechanical Ventilation (for respiratory distress) - Non-Invasive (i.e. BiPAP, CPAP): No Care Teams Vest Backer Relationship Specialty Start Date End Date German Skinner MD [address] [facility] [address] [place] [address] PCP - General Family Practice 04/21/19
--- OUTSIDE RECORDS SUMMARY | 2025-04-03 21:47 | XMS_ITS | Encounter Summary ---
Author Organization [facility] Address [address] [place] [address] Care Team Providers Care Precision Agriculture Technician Name Role Phone German Skinner MD Primary Care Provider +1 [phone] Encounter Details Date Type Department Care Team (Late st Contact Info) Description 03/31/2025 External Device Data ST[place] ABSTRACTION Provider, Abstract NO ADDRESS ON FILE Social History Tobacco Use Types Packs/Day Years [...] on file Legal Sex Female 4:51 PM GLUE MOUNTER OPERATOR Gender Identity Not on file Sexual Orientation Not on file documented as of this encounter Plan of Treatment Not on file documented as of this encounter Visit Diagnoses Not on filedocumented in this encounter Care Teams Precision Agriculture Technician Relationship Specialty Start Date End Date German Skinner MD [address] [address] PCP - General Family Practice 04/21/19 documented as of this encounter
--- OUTSIDE RECORDS SUMMARY | 2025-04-03 21:47 | XMS_ITS | Encounter Summary ---
Author Organization [facility] Address [address] [place] [address] Care Team Providers Care Horticultural Specialty Grower Inside Name Role Phone German Skinner MD Primary Care Provider +1 [phone] Reason for Referral * Outpatient Services (Routine) - Closed Specialty Diagnoses / Procedures Referred By Balwinder camarillo Referred To Contact CT Scan Diagnoses Abdominal pain, acute Procedures CT ABDOMEN PELVIS WO CONTRAST Toshia Burch FNP [address] [place] [address] Phone: tel: fax: [facility] [address] [facility] [address] [place] [address] Phone: tel: fax: Referral ID Status Reason Start Date Expiration Date Visits Re quested Visits Authorized [id number] Closed 06/04/2014 07/05/2015 1 1 LER HELPER Encounter Details Date Type Department Care Team (Late st Contact Info) Description 06/04/2014 Ancillary Orders [facility] Family Medicine- [address] [place] [address] Toshia Burch FNP [address] [place] [address] Abdominal pain, acute (Primary Dx) Social History Tobacco Use Types Packs/Day Years Used Date Smoking Tobacco: Never Smokeless Tobacco: Never Alcohol Use Standard Drinks/Week Comments No 0 (1 standard drink = 0.6 oz pur e alcohol) Comments No Sex and Gender Information Value Date Recorded Sex Assigned at Not on file Legal Sex Female 4:12 AM LEVELER HELPER Gender Identity Not on file Sexual Orientation Not on file Occupation Industry Job Start Date Job End Date Not on file Not on file Not on file Not on file documented as of this encounter Plan of Treatment Not on file documented as of this encounter Procedures Procedure Name Priority Date/Time Associated Diagnosis Comments CT ABDOMEN PELVIS WO CONTRAST Routine 06/04/2014 4:02 PM LEVELER HELPER Abdominal pain, acute documented in this encounter Results * CT ABDOMEN PELVIS WO CONTRAST (06/04/2014 4:02 PM LEVELER HELPER) Anatomical Region Laterality Modality Abdomen Computed Tomogra phy 06/04/2014 3:51 PM LEVELER HELPER Narrative 06/05/2014 8:20 AM LEVELER HELPER PROCEDURE CT ABDOMEN and PELVIS, non-contrast, 04 June 2014 TECHNIQUE With the patient supine in the scanning gantry, with no oral or IV contrast administered, helical axial imaging was obtained from above the diaphragm through the pelvis at 5 mm increments for 93 axial images. Sagittal and coronal reconstructions are also obtained. DESCRIPTION The heart appears unremarkable to the extent visualized. Lung bases show no infiltrate or effusion. 3 cm hiatal hernia is noted. Unenhanced liver appears unremarkable. Gallbladder is nondistended with no calculi seen. Unenhanced spleen appears unremarkable. Unenhanced pancreas appears unremarkable. Unenhanced adrenal glands appear normal. Unenhanced kidneys appear unremarkable for hydronephrosis. There is minimal nonobstructing left nephrolithiasis. Ureters appear normal in course and caliber. The small bowel shows no obstructive distention or significant air-fluid level. Appendix is identified without inflammatory change seen. Colon shows moderate fecal artifact with no pericolic inflammatory change seen. Nondistended urinary bladder and pelvic structures appear unremarkable. No free fluid, free air, or adenopathy are seen. There is prominent osteophyte at L5-S1 and at the thoracolumbar junction. No abdominal wall hernia is seen. IMPRESSION 1. small hiatal hernia 2. minimal nonobstructing left nephrolithiasis 3. osteoarthritis Procedure Note Aries Domínguez MD - 06/05/[address] ABDOMEN and PELVIS, non-contrast, 04 June 2014 TECHNIQUE With the patient supine in the scanning gantry, with no oral or IV contrast administered, helical axial imaging was obtained from above the diaphragm through the pelvis at 5 mm increments for 93 axial images. Sagittal and coronal reconstructions are also obtained. DESCRIPTION The heart appears unremarkable to the extent visualized. Lung bases show no infiltrate or effusion. 3 cm hiatal hernia is noted. Unenhanced liver appears unremarkable. Gallbladder is nondistended with no calculi seen. Unenhanced spleen appears unremarkable. Unenhanced pancreas appears unremarkable. Unenhanced adrenal glands appear normal. Unenhanced kidneys appear unremarkable for hydronephrosis. There is minimal nonobstructing left nephrolithiasis. Ureters appear normal in course and caliber. The small bowel shows no obstructive distention or significant air-fluid level. Appendix is identified without inflammatory change seen. Colon shows moderate fecal artifact with no pericolic inflammatory change seen. Nondistended urinary bladder and pelvic structures appear unremarkable. No free fluid, free air, or adenopathy are seen. There is prominent osteophyte at L5-S1 and at the thoracolumbar junction. No abdominal wall hernia is seen. IMPRESSION 1. small hiatal hernia 2. minimal nonobstructing left nephrolithiasis 3. osteoarthritis Toshia Burch [facility] CT ORDERABLES Final Resul t documented in this encounter Visit Diagnoses Diagnosis Abdominal pain, acute- Primary Abdominal pain, unspecified site documented in this encounter Care Teams Horticultural Specialty Grower Inside Relationship Specialty Start Date End Date German Skinner MD [address] [phone] PCP - General Family Practice 04/21/19 documented as of this encounter
--- OUTSIDE RECORDS SUMMARY | 2025-04-03 21:47 | XMS_ITS | Encounter Summary ---
Author Organization [facility] Address [address] [place] [address] Care Team Providers Care Product Picker Name Role Phone German Skinner MD Primary Care Provider +1 [phone] Encounter Details Date Type Department Care Team (Latest Contact Info) Description 01/01/2007 Outpatient Historical [facility] Family Medicine [place] [address] [address] Toshia Burch, GEOMATICS PROFESSOR [address] [place] [address] Unspecified Essential Hypertension (Primary Dx); Undiagnosed Cardiac Murmurs Social History Tobacco Use Types Packs/Day Years Used Date Smoking Tobacco: Never Assessed Comments Unknown Sex and Gender Information Value Date Recorded Sex Assigned at Not on file Legal Sex Female 4:12 AM 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
--- OUTSIDE RECORDS SUMMARY | 2025-04-03 21:48 | XMS_ITS | Encounter Summary ---
Author Organization [facility] Address [address] [place] [address] Care Team Providers Care Tin Pourer Name Role Phone German Skinner MD Primary Care Provider [phone] [phone] Encounter Details Date Type Department Care Team (Latest Contact Info) Description 02/21/2001 Outpatient Historical [facility] Magan Ya MD [address] [place] [address] Primary localized osteoarthrosis, lower leg (Primary Dx); Symptomatic menopausal or female climacteric states Social History Tobacco Use Types Packs/Day Years Used Date Smoking Tobacco: Never Assessed Comments Unknown Sex and Gender Information Value Date Recorded Sex Assigned at Not on file Legal Sex Female 4:12 AM POLLUTION CONTROL ENGINEER Gender Identity Not on file Sexual Orientation Not on file documented as of this encounter Plan of Treatment Not on file documented as of this encounter Visit Diagnoses Diagnosis Primary localized osteoarthrosis, lower leg- Primary Symptomatic menopausal or female climacteric states documented in this encounter Care Teams Tin Pourer Relationship Specialty Start Date End Date German Skinner MD [address] [facility] [address] [place] [address] PCP - General Family Practice 04/21/19 documented as of this encounter
--- OUTSIDE RECORDS SUMMARY | 2025-04-03 21:48 | XMS_ITS | Patient Health Record ---
Author Organization [facility] Address [address] [place] [address] Support Name Relationship Address Phone SARAH LOVING Emergency Contact Unknown MARY ELLEN LOVING Guarantor Unknown [phone] Allergies Allergen (clinical drug ingredient) Drug/Non Drug Allergy documented on EMR Reaction Allergy Type Onset Date Status meclizine Meclizine , Drug Allergy Active Reason For Referral No Information Medications Medication SIG (Take, Route, Frequency, Duration) Notes Start Date End Date Status Lisinopril 20 MG Tablet Oral 07/10/2018 Active vitamin E 450 MG Oral Capsule ORAL *Reorder from [employer] for eRx and Interaction Alerts* 07/10/2018 Active Magnesium Oxide Magnesium Oxide 06/28/2017 900 Active 24 HR diltiazem hydrochloride 120 MG Extended Release Oral Capsule [Cartia] ORAL *Reorder from [employer] for eRx and Interaction Alerts* 07/10/2018 Active Terazosin 10 MG Oral Capsule ORAL *Reorder from [employer] for eRx and Interaction Alerts* 07/10/2018 Active Triamcinolone Acetonide 0.0005 MG/MG Topical Ointment CUTANEOUS *Reorder from [employer] for eRx and Interaction Alerts* 07/10/2018 Active Lisinopril 40 MG Oral Tablet Lisinopril 40 MG Oral Tablet 06/28/2015 Active Furosemide 20 MG Oral Tablet Furosemide 20 MG Oral Tablet 12/24/2014 Active Naproxen Naproxen 04/13/2011 Active Vitamin E Vitamin E 06/28/2017 Active Terazosin 1 MG Oral Capsule Terazosin 1 MG Oral Capsule 06/28/2016 Active Social History Social History Additional Details Category Social Info Options Details Migrated Social History Migrated Social History History of tobacco use : , Smoking Status : Former smoker Plan Of Treatment No Information
--- OUTSIDE RECORDS SUMMARY | 2025-04-03 21:48 | XMS_ITS | Encounter Summary ---
Author Organization [facility] Address [address] [place] [address] Care Team Providers Care Shallot Packer Name Role Phone German Skinner MD Primary Care Provider [phone] [phone] Encounter Details Date Type Department Care Team (Late st Contact Info) Description 06/25/2007 Outpatient Historical [facility] Family Medicine [place] [address] [address] Toshia Burch, WAREHOUSER [address] [place] [address] Social History Tobacco Use Types Packs/Day Years Used Date Smoking Tobacco: Never Assessed Comments Unknown Sex and Gender Information Value Date Recorded Sex Assigned at Not on file 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
--- OUTSIDE RECORDS SUMMARY | 2025-04-03 21:48 | XMS_ITS | Encounter Summary ---
Author Organization [facility] Address [address] [place] [address] Care Team Providers Care Medical Affairs Manager Name Role Phone German Skinner MD Primary Care Provider [phone] [phone] Encounter Details Date Type Department Care Team (Latest Contact Info) Description 10/30/2000 Outpatient Historical [facility] NANOSYSTEMS ENGINEER [address] [place] [address] Denver Laguna MD NO ADDRESS ON FILE Gynecologic examination (Primary Dx); Uterovaginal prolapse, unspecified Social History Tobacco Use Types Packs/Day Years Used Date Smoking Tobacco: Never Assessed Comments Unknown Sex and Gender Information Value Date Recorded Sex Assigned at Not on file 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
--- OUTSIDE RECORDS SUMMARY | 2025-04-03 21:48 | XMS_ITS | Encounter Summary ---
Author Organization [facility] Address [address] [place] [address] Care Team Providers Care Fire Extinguisher Repairer Name Role Phone German Skinner MD Primary Care Provider [phone] [phone] Encounter Details Date Type Department Care Team (Latest Contact Info) Description 07/18/2001 Outpatient Historical [facility] Magan Ya MD [address] [place] [address] LOC PRIM OSTEOART-L/LEG (Primary Dx) Social History Tobacco Use Types Packs/Day Years Used Date Smoking Tobacco: Never Assessed Comments Unknown Sex and Gender Information Value Date Recorded Sex Assigned at Not on file Legal 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
--- OUTSIDE RECORDS SUMMARY | 2025-04-03 21:48 | XMS_ITS | Encounter Summary ---
Author Organization [facility] Address [address] [place] [address] Care Team Providers Care Transformer Maker Name Role Phone German Skinner MD Primary Care Provider +1 [phone] Reason for Referral * Outpatient Services (Routine) - Closed Specialty Diagnoses / Procedures Referred By Balwinder camarillo Referred To Contact Diagnoses Screening mammogram Procedures MAMMO SCREENING BILAT Toshia Burch FNP [address] [place] [address] Phone: tel: fax: Referral ID Status Reason Start Date Expiration Date Visits Re quested Visits Authorized [id number] Closed 09/28/2010 03/27/2011 1 1 ET SECRETARY ASSEMBLER Encounter Details Date Type Department Care Team (Late st Contact Info) Description 09/28/2010 Ancillary Orders [facility] Imaging External Read [address] [place] [address] Toshia Burch FNP [address] [place] [address] Screening mammogram Social History Tobacco Use Types Packs/Day Years Used Date Smoking Tobacco: Never Smokeless Tobacco: Never Alcohol Use Standard Drinks/Week Comments No 0 (1 standard drink = 0.6 oz pur e alcohol) Comments No Sex and Gender Information Value Date Recorded Sex Assigned at Not on file Legal 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 This examination was reviewed with the aid of a computer-aided detection system(CAD). The breast tissue density is average. Scattered calcifications are noted. No significant new findings since the prior mammogram(s). Procedure Note Debby Genao MD - 09/29/2010 Bilateral Mammogram Reason for Exam: Screening Comparison: Comparison is made with the prior exam(s) dated 06.10.08 Findings: Bilateral CC and MLO views were obtained. This examination was reviewed with the aid of a computer-aided detectionsystem(CAD). The breast tissue density is average. Scattered calcifications are noted. No significant new findings since the prior mammogram(s). Toshia Burch HAND STRIPPER MAMMO ORDERABLES Final Resu lt documented in this encounter Visit Diagnoses Diagnosis Screening mammogram Other screening mammogram documented in this encounter Care Teams Transformer Maker Relationship Specialty Start Date End Date German Skinner MD [address] [id number] PCP - General Family Practice 04/21/19 documented as of this encounter
--- OUTSIDE RECORDS SUMMARY | 2025-04-03 21:48 | XMS_ITS | Encounter Summary ---
Author Organization [facility] Address [address] [place] [address] Care Team Providers Care Consumer Safety Inspector Name Role Phone German Skinner MD Primary Care Provider +1 [phone] Reason for Referral * Outpatient Services (Routine) - Closed Specialty Diagnoses / Procedures Referred By Balwinder camarillo Referred To Contact Radiology Diagnoses Screening for osteoporosis Osteopenia Procedures XR DEXA BONE DENSITY AXIAL 1 OR MORE SITES Toshia Burch FNP [address] [place] [address] Phone: tel: fax: [facility] [address] [facility] [address] [place] [address] Phone: tel: fax: Referral ID Status Reason Start Date Expiration Date Visits Re quested Visits Authorized [id number] Closed 11/07/2011 11/06/2012 1 1 Encounter Details Date Type Department Care Team (Late st Contact Info) Description 11/07/2011 Ancillary Orders [facility] Family Medicine [place] [address] [facility] [address] [place] [address] Toshia Burch FNP [address] [place] [address] Screening for osteoporosis; Osteopenia Social History Tobacco Use Types Packs/Day Years Used Date Smoking Tobacco: Never Smokeless Tobacco: Never Alcohol Use Standard Drinks/Week Comments No 0 (1 standard drink = 0.6 oz pur e alcohol) Comments No Sex and Gender Information Value Date Recorded Sex Assigned at Not on file Legal 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 Total density measured in the lumbar spine is 1.274 g/sq cm for a T score of +2.1. The total bone density of the left hip measures 0.984 g/sq cm for a T score of +0.3. The femoral neck region measures 0.731 g/sq cm for a T score of -1.1. IMPRESSION osteopenia with increased fracture risk Procedure Note Aries Domínguez MD - 11/08/2011 Bone mineral densitometry was assessed by DEXA of the lumbar spine and left hip. Total density measured in the lumbar spine is 1.274 g/sq cm for a T score of +2.1. The total bone density of the left hip measures 0.984 g/sq cm for a T score of +0.3. The femoral neck region measures 0.731 g/sq cm for a T score of -1.1. IMPRESSION osteopenia with increased fracture risk Toshia Burch [facility] ORDERABL ES Final Result documented in this encounter Visit Diagnoses Diagnosis Screening for osteoporosis Special screening for osteoporosis Osteopenia Disorder of bone and cartilage, unspecified Screening for osteoporosis Special screening for osteoporosis Osteopenia Disorder of bone and cartilage, unspecified documented in this encounter Care Teams Consumer Safety Inspector Relationship Specialty Start Date End Date German Skinner MD [address] [facility] [address] [place] [address] PCP - General Family Practice 04/21/19 documented as of this encounter
--- OUTSIDE RECORDS SUMMARY | 2025-04-03 21:48 | XMS_ITS | Encounter Summary ---
Author Organization [facility] Address [address] 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
--- OUTSIDE RECORDS SUMMARY | 2025-04-03 21:48 | XMS_ITS | Encounter Summary ---
Author Organization [facility] Address [address] [place] [address] Care Team Providers Care Public Services Assistant Name Role Phone German Skinner MD Primary Care Provider +1 [phone] Encounter Details Date Type Department Care Team (Latest Contact Info) Description 04/23/2007 Outpatient [facility] [address] [place], [place] [id number] Denver Laguna MD NO ADDRESS ON FILE Other Follow-Up Examination (Primary Dx) Social History Tobacco Use Types Packs/Day Years Used Date Smoking Tobacco: Never Assessed Comments Unknown Sex and Gender Information Value Date Recorded Sex Assigned at Not on file Legal Sex Female 4:12 AM CLIENT RESOURCE SPECIALIST Gender Identity Not on file Sexual Orientation Not on file documented as of this encounter Plan of Treatment Not on file documented as of this encounter Visit Diagnoses Diagnosis Other follow-up examination(V67.59)- Primary Other follow-up examination documented in this encounter Care Teams Public Services Assistant Relationship Specialty Start Date End Date German Skinner MD [address] [facility] [address] [place] [address] PCP - General Family Practice 04/21/19 documented as of this encounter
--- OUTSIDE RECORDS SUMMARY | 2025-04-03 21:48 | XMS_ITS | Encounter Summary ---
Author Organization [facility] Address [address] [place] [address] Care Team Providers Care Engineering Inspection Assistant Name Role Phone German Skinner MD Primary Care Provider +1 [phone] Encounter Details Date Type Department Care Team (Latest Contact Info) Description 1999 Outpatient Historical [facility] [place] [facility] Wili Sharma MD NO ADDRESS ON FILE Benign willian skin arm (Primary Dx) Social History Tobacco Use Types Packs/Day Years Used Date Smoking Tobacco: Never Assessed Comments Unknown Sex and Gender Information Value Date Recorded Sex Assigned at Not on file Legal Sex Female 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
--- OUTSIDE RECORDS SUMMARY | 2025-04-03 21:48 | XMS_ITS | Encounter Summary ---
Author Organization [facility] Address [address] [place] [address] Care Team Providers Care Professor Of Violin Name Role Phone German Skinner MD Primary Care Provider +1 -[phone] Encounter Details Date Type Department Care Team (Latest Contact Info) Description 02/12/2001 Outpatient Historical [facility] Magan Ya MD [address] [place] [address] Primary localized osteoarthrosis, lower leg (Primary Dx) Social History Tobacco Use Types Packs/Day Years Used Date Smoking Tobacco: Never Assessed Comments Unknown Sex and Gender Information Value Date Recorded Sex Assigned at Not on file Legal Sex Female 4:12 AM PACKAGE SEALER Gender Identity Not on file Sexual Orientation Not on file documented as of this encounter Plan of Treatment Not on file documented as of this encounter Visit Diagnoses Diagnosis Primary localized osteoarthrosis, lower leg- Primary documented in this encounter Care Teams Professor Of Violin Relationship Specialty Start Date End Date German Skinner MD [address] [facility] [address] [place] [address] PCP - General Family Practice 04/21/19 documented as of this encounter
--- OUTSIDE RECORDS SUMMARY | 2025-04-03 21:48 | XMS_ITS | Encounter Summary ---
Author Organization [facility] Address [address] [place] [address] Care Team Providers Care Sales Outfitter Name Role Phone German Skinner MD Primary Care Provider +1 [phone] Encounter Details Date Type Department Care Team (Latest Contact Info) Description 11/16/2008 Ancillary Orders [facility] CT Scan [address] [place] [address] Aram Ruiz MD NO ADDRESS ON FILE Swelling, Mass, or Lump in Head and Neck Social History Tobacco Use Types Packs/Day Years Used Date Smoking Tobacco: Never Assessed Comments No Sex and Gender Information Value Date Recorded Sex Assigned at Not on file Legal Sex Female 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 A skin marker has been placed overlying the anterior midline neck at the level of thyroid isthmus at the site of a reported palpable abnormality. The underlying subcutaneous soft tissues are unremarkable. The right thyroid lobe is slightly more prominent in the transverse diameter compared to the left and contains a few subcentimeter nonspecific low attenuating lesions. Further caudad, the soft tissues at the superior margin of the left sternoclavicular articulation are slightly more prominent, likely representing either a normal anatomic variant or mild degenerative and/or inflammatory periarticular changes. No enlarged lymph nodes. The parotid and submandibular glands are unremarkable. The parapharyngeal soft tissues are symmetric. The tongue, tongue base and larynx are unremarkable. Small right inferomedial maxillary sinus mucous retention cyst. Mild multilevel upper thoracic spine degenerative changes. The lung apices are clear. IMPRESSION No well-defined neck mass or enlarged lymph nodes. Mild asymmetric prominence of the right thyroid gland containing several nonspecific subcentimeter low attenuating lesions. ekp - uploaded from [employer] - Procedure Note Rl Scruggs MD - 11/26/2008 The examination has been performed with 75 mL of Optiray-240. A skin marker has been placed overlying the anterior midline neck at thelevel of thyroid isthmus at the site of a reported palpable abnormality. The underlying subcutaneoussoft tissues are unremarkable. The right thyroid lobe is slightly more prominent in the transverse diametercompared to the left and contains a few subcentimeter nonspecific low attenuating lesions. Furthercaudad, the soft tissues at the superior margin of the left sternoclavicular articulation are slightlymore prominent, likely representing either a normal anatomic variant or mild degenerative and/orinflammatory periarticular changes. No enlarged lymph nodes. The parotid and submandibular glands areunremarkable. The parapharyngeal soft tissues are symmetric. The tongue, tongue base and larynx areunremarkable. Small right inferomedial maxillary sinus mucous retention cyst. Mild multilevel upper thoracicspine degenerative changes. The lung apices are clear. IMPRESSION No well-defined neck mass or enlarged lymph nodes. Mildasymmetric prominence of the right thyroid gland containing several nonspecific subcentimeter low attenuatinglesions. ekp - uploaded from [employer] - Aram Ruiz MD CT ORDERABLES Final Result documented in this encounter Visit Diagnoses Diagnosis Swelling, mass, or lump in head and neck Swelling, mass, or lump in head and neck documented in this encounter Care Teams Sales Outfitter Relationship Specialty Start Date End Date German Skinner MD [address] [address] PCP - General Family Practice 04/21/19 documented as of this encounter
--- OUTSIDE RECORDS SUMMARY | 2025-04-03 21:48 | XMS_ITS | Encounter Summary ---
Author Organization [facility] Address [address] [facility] Attn: [place] [address] Care Team Providers Care Emergency Medical Tech Name Role Phone German Skinner MD Primary Care Provider +1 [phone] Encounter Details Date Type Department Care Team (Late st Contact Info) Description 11/23/2000 Inpatient Historical [place] Laguna MD NO ADDRESS ON FILE Social History Tobacco Use Types Packs/Day Years Used Date Smoking Tobacco: Never Assessed Comments Unknown Sex and Gender Information Value Date Recorded Sex Assigned at Not on file Legal Sex Female 4:12 AM MEDIA PLANNER Gender Identity Not on file Sexual Orientation Not on file documented as of this encounter Plan of Treatment Not on file documented as of this encounter Visit Diagnoses Not on filedocumented in this encounter Care Teams Emergency Medical Tech Relationship Specialty Start Date End Date German Skinner MD [address] [facility] [address] [place] [address] PCP - General Family Practice 04/21/19 documented as of this encounter
--- OUTSIDE RECORDS SUMMARY | 2025-04-03 21:48 | XMS_ITS | Encounter Summary ---
Author Organization [facility] Address [address] [place] [address] Care Team Providers Care Marketing Systems Manager Name Role Phone German Skinner MD Primary Care Provider +1 [phone] Encounter Details Date Type Department Care Team (Late st Contact Info) Description 08/08/2001 [facility]patient [facility] [address] [place] [address] Broderick Lee MD NO ADDRESS ON FILE LUMBAGO (Primary Dx) Social History Tobacco Use Types Packs/Day Years Used Date Smoking Tobacco: Never Assessed Comments Unknown Sex and Gender Information Value Date Recorded Sex Assigned at Not on file Legal Sex Female 4:12 AM FORGER HELPER Gender Identity Not on file Sexual Orientation Not on file documented as of this encounter Plan of Treatment Not on file documented as of this encounter Visit Diagnoses Diagnosis Lumbago- Primary documented in this encounter Care Teams Marketing Systems Manager Relationship Specialty Start Date End Date German Skinner MD [address] [facility] [address] [place] [address] PCP - General Family Practice 04/21/19 documented as of this encounter
--- OUTSIDE RECORDS SUMMARY | 2025-04-03 21:48 | XMS_ITS | Encounter Summary ---
Author Organization [facility] Address [address] [place] [address] Care Team Providers Care Logging Rafter Laborer Name Role Phone German Skinner MD Primary Care Provider +1 -[phone] Encounter Details Date Type Department Care Team (Late st Contact Info) Description 01/28/2009 Ancillary Orders [facility] [address] [place] [address] Magan Ya MD [address] [place] [address] Clavicle Pain Social History Tobacco Use Types Packs/Day Years Used Date Smoking Tobacco: Never Alcohol Use Standard Drinks/Week Comments No 0 (1 standard drink = 0.6 oz pur e alcohol) Comments No Sex and Gender Information Value Date Recorded Sex Assigned at Not on file Legal Sex Female 4:12 AM DIRECTOR FINANCIAL ANALYSIS Gender Identity Not on file Sexual Orientation Not on file documented as of this encounter Plan of Treatment Not on file documented as of this encounter Results * MRI UPR EXT JOINT W WO CONT LEFT (01/28/2009 5:04 PM CDT) Anatomical Region Laterality Modality Upper Extremity Magnetic Resonan ce 01/28/2009 4:15 PM CDT Impressions 01/29/2009 9:37 AM CDT -- The following data has been recovered by the [facility] [id number] cleanup utility -- Impression: 1. Large asymmetric joint effusion of the left sternoclavicular joint with mild synovial enhancement on postcontrast images when compared to the right. Subchondral sclerosis and subchondral cystic change of the left sternoclavicular joint with mild marginal osteophyte formation is present. Differential diagnosis would include inflammatory arthropathy given the relative paucity of productive change for the degree of subchondral cystic change and large effusion is noted. Clinical correlation is recommended. No MRI evidence of a discrete fracture line is present. jaw - uploaded from [employer] - Narrative 01/29/2009 9:37 AM CDT Exam: MRI UPR EXT JOINT W WO CONT LEFT Date/Time of Exam: Jan 28, 2009 5:04:00 PM History: CLAVICLE PAIN. Technique: MRI of the left upper extremity (joint) was performed prior to and following the administration of intravenous contrast. Contrast: 20 ml intravenous Optimark Comparison: CT soft tissue neck 11/23/2008. Findings: An asymmetric large effusion of the left sternoclavicular joint is identified. Mild more than physiologic synovial enhancement of the left sternoclavicular joint is seen. Mild subchondral cystic change versus early erosions involving the manubrium on the left at the sternoclavicular joint is seen. Mild marginal osteophyte formation of the head of the left clavicle is identified. Marrow edema of the head of the left clavicle with an approximately 1.0 x 0.5 cm possible erosion involving the head of the left clavicle is identified. When correlated for No MRI evidence of a discrete fracture line is seen. No dislocation of the left sternoclavicular joint is identified. A small amount of fluid within the left first costochondral junction is identified not significantly asymmetric from the right 1st rib sternocostal junction. When compared to the CT soft tissue neck exam with contrast of 11/23/2008 subchondral cystic change and subchondral sclerosis of the head of the left clavicle is identified. Mild subchondral sclerosis and subchondral cystic change of the manubrium is noted as well. Widening of the left sternoclavicular joint when compared to the CT neck exam of 11/23/2008 however is noted. No additional osseous or soft tissue signal abnormality is identified. Transcriptions [facility] Scanning, [facility] - 02/01/2009 11:13 PM CDT us Magan Ya MD MR ORDERABLES Edited documented in this encounter Visit Diagnoses Diagnosis Clavicle pain Pain in joint, shoulder region Clavicle pain Pain in joint, shoulder region documented in this encounter Care Teams Logging Rafter Laborer Relationship Specialty Start Date End Date German Skinner MD [address] [address] PCP - General Family Practice 04/21/19 documented as of this encounter
--- OUTSIDE RECORDS SUMMARY | 2025-04-03 21:48 | XMS_ITS | Encounter Summary ---
Author Organization [facility] Address [address] [place] [address] Care Team Providers Care Medical Technologist Generalist Name Role Phone German Skinner MD Primary Care Provider +1 [phone] Encounter Details Date Type Department Care Team (Late st Contact Info) Description 11/16/2008 Ancillary Orders [facility]- [address] [address] Aram Ruiz MD NO ADDRESS ON FILE Social History Tobacco Use Types Packs/Day Years Used Date Smoking Tobacco: Never Assessed Comments No Sex and Gender Information Value Date Recorded Sex Assigned at Not on file Legal Sex Female 4:12 AM CABIN CREW Gender Identity Not on file Sexual Orientation Not on file documented as of this encounter Plan of Treatment Not on file documented as of this encounter Visit Diagnoses Not on filedocumented in this encounter Care Teams Medical Technologist Generalist Relationship Specialty Start Date End Date German Skinner MD [address] [facility] [address] [place] [address] PCP - General Family Practice 04/21/19 documented as of this encounter
--- OUTSIDE RECORDS SUMMARY | 2025-04-03 21:48 | XMS_ITS | Encounter Summary ---
Author Organization [facility] Address [address] [place] [address] Care Team Providers Care Seat Mender Name Role Phone German Skinner MD Primary Care Provider +1 -[phone] Encounter Details Date Type Department Care Team (Late st Contact Info) Description 06/08/[address] [facility] Breast Center [facility] [address] [place], [place] [id number] Denver Laguna MD NO ADDRESS ON FILE Social History Tobacco Use Types Packs/Day Years Used Date Smoking Tobacco: Never Assessed Comments No Sex and Gender Information Value Date Recorded Sex Assigned at Not on file Legal Sex Female 4:12 AM DIE FORGER Gender Identity Not on file Sexual Orientation Not on file documented as of this encounter Plan of Treatment Not on file documented as of this encounter Visit Diagnoses Not on filedocumented in this encounter Care Teams Seat Mender Relationship Specialty Start Date End Date German Skinner MD [address] [facility] [address] [place] [address] PCP - General Family Practice 04/21/19 documented as of this encounter
--- OUTSIDE RECORDS SUMMARY | 2025-04-03 21:48 | XMS_ITS | Encounter Summary ---
Author Organization [facility] Address [address] [place] [address] Care Team Providers Care Financial Reporting Consultant Name Role Phone German Skinner MD Primary Care Provider +1 [phone] Encounter Details Date Type Department Care Team (Late st Contact Info) Description 06/10/2008 Outpatient Historical [facility] [address] [facility] [address] [place] [address] Social History Tobacco Use Types Packs/Day Years Used Date Smoking Tobacco: Never Assessed Comments No Sex and Gender Information Value Date Recorded Sex Assigned at Not on file Legal Sex Female 4:12 AM TILE DESIGNER Gender Identity Not on file Sexual Orientation Not on file documented as of this encounter Plan of Treatment Not on file documented as of this encounter Visit Diagnoses Not on filedocumented in this encounter Care Teams Financial Reporting Consultant Relationship Specialty Start Date End Date German Skinner MD [address] [facility] [address] [place] [address] PCP - General Family Practice 04/21/19 documented as of this encounter
--- OUTSIDE RECORDS SUMMARY | 2025-04-03 21:48 | XMS_ITS | Encounter Summary ---
Author Organization [facility] Address [address] [place] [address] Care Team Providers Care Die Designer Apprentice Name Role Phone German Skinner MD Primary Care Provider +1 -[phone] Encounter Details Date Type Department Care Team (Late st Contact Info) Description 02/21/2001 Outpatient Historical [facility] Social History Tobacco Use Types Packs/Day Years Used Date Smoking Tobacco: Never Assessed Comments Unknown Sex and Gender Information Value Date Recorded Sex Assigned at Not on file Legal Sex Female 4:12 AM COUNTY MANAGER Gender Identity Not on file Sexual Orientation Not on file documented as of this encounter Plan of Treatment Not on file documented as of this encounter Visit Diagnoses Not on filedocumented in this encounter Care Teams Die Designer Apprentice Relationship Specialty Start Date End Date German Skinner MD [address] [facility] [place] [address] PCP - General Family Practice 04/21/19 documented as of this encounter
--- OUTSIDE RECORDS SUMMARY | 2025-04-03 21:48 | XMS_ITS | Encounter Summary ---
Author Organization [facility] Address [address] [place] [address] Care Team Providers Care Windows Infrastructure Engineer Name Role Phone German Skinner MD Primary Care Provider +1 -[phone] Encounter Details Date Type Department Care Team (Latest Contact Info) Description 11/23/2000 Outpatient Historical [facility] DRY CELL TESTER [address] [place] [address] Denver Laguna MD NO ADDRESS ON FILE Uterovaginal prolapse, complete (Primary Dx); Leiomyoma of uterus, unspecified Social History Tobacco Use Types Packs/Day Years Used Date Smoking Tobacco: Never Assessed Comments Unknown Sex and Gender Information Value Date Recorded Sex Assigned at Not on file Legal Sex Female 4:12 AM CMM TECHNICIAN Gender Identity Not on file Sexual Orientation Not on file documented as of this encounter Plan of Treatment Not on file documented as of this encounter Visit Diagnoses Diagnosis Uterovaginal prolapse, complete- Primary Leiomyoma of uterus, unspecified documented in this encounter Care Teams Windows Infrastructure Engineer Relationship Specialty Start Date End Date German Skinner MD [address] [facility] [address] [place] [address] PCP - General Family Practice 04/21/19 documented as of this encounter
--- OUTSIDE RECORDS SUMMARY | 2025-04-03 21:48 | XMS_ITS | Encounter Summary ---
Author Organization [facility] Address [address] [place] [address] Care Team Providers Care Train Operations Manager Name Role Phone German Skinner MD Primary Care Provider +1 -[phone] Encounter Details Date Type Department Care Team (Latest Contact Info) Description 12/04/2000 Outpatient Historical [facility] SPECIAL MACHINE STITCHER [address] [place] [address] Denver Laguna MD NO ADDRESS ON FILE Follow-up examination, following unspecified surgery (Primary Dx) Social History Tobacco Use Types Packs/Day Years Used Date Smoking Tobacco: Never Assessed Comments Unknown Sex and Gender Information Value Date Recorded Sex Assigned at Not on file Legal Sex Female 4:12 AM MAINTENANCE TECHNICIAN 2ND SHIFT Gender Identity Not on file Sexual Orientation Not on file documented as of this encounter Plan of Treatment Not on file documented as of this encounter Visit Diagnoses Diagnosis Follow-up examination, following unspecified surgery- Primary documented in this encounter Care Teams Train Operations Manager Relationship Specialty Start Date End Date German Skinner MD [address] [place] [address] PCP - General Family Practice 04/21/19 documented as of this encounter
--- OUTSIDE RECORDS SUMMARY | 2025-04-03 21:48 | XMS_ITS | Encounter Summary ---
Author Organization [facility] Address [address] [place] [address] Care Team Providers Care Soil Biology Teacher Name Role Phone German Skinner MD Primary Care Provider +1 -[phone] Encounter Details Date Type Department Care Team (Latest Contact Info) Description 11/30/2000 Outpatient Historical [facility] MAGAZINE PUBLISHER [address] [place] [address] Denver Laguna MD NO ADDRESS ON FILE Follow-up examination, following unspecified surgery (Primary Dx) Social History Tobacco Use Types Packs/Day Years Used Date Smoking Tobacco: Never Assessed Comments Unknown Sex and Gender Information Value Date Recorded Sex Assigned at Not on file Legal Sex Female 4:12 AM BRIDGE CARPENTER Gender Identity Not on file Sexual Orientation Not on file documented as of this encounter Plan of Treatment Not on file documented as of this encounter Visit Diagnoses Diagnosis Follow-up examination, following unspecified surgery- Primary documented in this encounter Care Teams Soil Biology Teacher Relationship Specialty Start Date End Date German Skinner MD [address] [place] [address] PCP - General Family Practice 04/21/19 documented as of this encounter
--- OUTSIDE RECORDS SUMMARY | 2025-04-03 21:48 | XMS_ITS | Encounter Summary ---
Author Organization [facility] Address [address] [place] [address] Care Team Providers Care Classroom Monitor Name Role Phone German Skinner MD Primary Care Provider +1 -[phone] Encounter Details Date Type Department Care Team (Late st Contact Info) Description 08/15/2007 Outpatient Historical [facility] [address] [place] [address] Nicolás Nur MD [address] [facility] [address] [place] [address] Social History Tobacco Use Types Packs/Day Years Used Date Smoking Tobacco: Never Assessed Comments Unknown Sex and Gender Information Value Date Recorded Sex Assigned at Not on file Legal Sex Female 4:12 AM INTEGRATION SOLUTION ARCHITECT Gender Identity Not on file Sexual Orientation Not on file documented as of this encounter Plan of Treatment Not on file documented as of this encounter Visit Diagnoses Not on filedocumented in this encounter Care Teams Classroom Monitor Relationship Specialty Start Date End Date German Skinner MD [address] [facility] [address] [place] [address] PCP - General Family Practice 04/21/19 documented as of this encounter
--- OUTSIDE RECORDS SUMMARY | 2025-04-03 21:48 | XMS_ITS | Encounter Summary ---
Author Organization [facility] Address [address] [place] [address] Care Team Providers Care Hoop Rolls Operator Name Role Phone German Skinner MD Primary Care Provider +1 -[phone] Encounter Details Date Type Department Care Team (Latest Contact Info) Description 01/02/2001 Outpatient Historical [facility] BINDERY MACHINE FEEDER OFFBEARER [address] [place] [address] [place] Laguna MD NO ADDRESS ON FILE Follow-up examination, following unspecified surgery (Primary Dx) Social History Tobacco Use Types Packs/Day Years Used Date Smoking Tobacco: Never Assessed Comments Unknown Sex and Gender Information Value Date Recorded Sex Assigned at Not on file Legal Sex Female 4:12 AM STRIPPING MACHINE OPERATOR Gender Identity Not on file Sexual Orientation Not on file documented as of this encounter Plan of Treatment Not on file documented as of this encounter Visit Diagnoses Diagnosis Follow-up examination, following unspecified surgery- Primary documented in this encounter Care Teams Hoop Rolls Operator Relationship Specialty Start Date End Date German Skinner MD [address] [place] [address] PCP - General Family Practice 04/21/19 documented as of this encounter
--- OUTSIDE RECORDS SUMMARY | 2025-04-03 21:48 | XMS_ITS | Encounter Summary ---
Author Organization [facility] Address [address] [facility] Attn: [place] [address] Care Team Providers Care Anatomy Teacher Name Role Phone German Skinner MD Primary Care Provider +1 [phone] Encounter Details Date Type Department Care Team (Late st Contact Info) Description 11/22/2007 Outpatient Historical Toshia Burch, GRACIELA [address] [place] [phone] Social History Tobacco Use Types Packs/Day Years Used Date Smoking Tobacco: Never Assessed Comments Unknown Sex and Gender Information Value Date Recorded Sex Assigned at Not on file Legal Sex Female 4:12 AM OLERICULTURIST Gender Identity Not on file Sexual Orientation Not on file documented as of this encounter Plan of Treatment Not on file documented as of this encounter Procedures Procedure Name Priority Date/Time Associated Diagnosis Comments T4 TOTAL Routine 11/22/2007 9:45 AM CDT T3 Routine 11/22/2007 9:45 AM CDT documented in this encounter Results * T3 (11/22/2007 9:45 AM CDT) T3 SEE SEP REPORT [facility] Blood specimen (specimen) 11/22/2007 9:45 AM CDT 11/23/2007 6:40 AM CDT us Toshia OWENS CHEMISTRY ORDERABLES Final Result [facility] [address] [place] [address] * T4 TOTAL (11/22/2007 9:45 AM CDT) T4 TOTAL 8.5 4.5 - 10.9 mcg/dl [facility] Blood specimen (specimen) 11/22/2007 9:45 AM CDT 11/22/2007 10:13 PM CDT us Toshia Burch MISSILE INSPECTOR PREFLIGHT CHEMISTRY ORDERABLES Final Result Performing Organization Address City/State/[facility] Co de Phone Number [facility] [address] [place] [address] documented in this encounter Visit Diagnoses Not on filedocumented in this encounter Care Teams Anatomy Teacher Relationship Specialty Start Date End Date German Skinner MD [address] [phone] PCP - General Family Practice 04/21/19 documented as of this encounter
--- OUTSIDE RECORDS SUMMARY | 2025-04-03 21:48 | XMS_ITS | Patient Health Record ---
Author Organization [employer] [employer] Address [address] [facility] [place] [address] Support Name Relationship Address Phone MARY ELLEN LOVING Guarantor Unknown [phone] Allergies Allergen (clinical drug ingredient) Drug/Non Drug Allergy documented on EMR Reaction Allergy Type Onset Date Status meclizine Meclizine , Drug Allergy Active Reason For Referral No Information Medications Medication SIG (Take, Route, Frequency, Duration) Notes Start Date End Date Status Lisinopril 40 MG Oral Tablet Lisinopril 40 MG Oral Tablet *Reorder from [employer] for eRx and Interaction Alerts* 06/28/2015 Active Vitamin E Vitamin E *Pick strength-form from [employer] for eRX* 06/28/2017 Active Naproxen Naproxen *Pick strength-form from [employer] for eRX* 04/13/2011 Active Terazosin 1 MG Oral Capsule Terazosin 1 MG Oral Capsule *Reorder from [employer] for eRx and Interaction Alerts* 06/28/2016 Active Magnesium Oxide Magnesium Oxide *Pick strength-form from [employer] for eRX* 06/28/2017 Active Furosemide 20 MG Oral Tablet Furosemide 20 MG Oral Tablet [facility] and Interaction Alerts* 12/24/2014 Active Plan Of Treatment No Information
--- OUTSIDE RECORDS SUMMARY | 2025-04-03 21:48 | XMS_ITS | Encounter Summary ---
Author Organization [facility] Address [address] [place] [address] Care Team Providers Care Dairy Equipment Mechanic Name Role Phone German Skinner MD Primary Care Provider +1 [phone] Encounter Details Date Type Department Care Team (Late st Contact Info) Description 07/09/2008 Outpatient Historical [facility] Endocrinology[facility] [address] [place] [address] Yang Perez MD NO ADDRESS ON FILE Social History Tobacco Use Types Packs/Day Years Used Date Smoking Tobacco: Never Assessed Comments No Sex and Gender Information Value Date Recorded Sex Assigned at Not on file Legal Sex Female 4:12 AM CAD LIBRARIAN Gender Identity Not on file Sexual Orientation Not on file documented as of this encounter Plan of Treatment Not on file documented as of this encounter Procedures Procedure Name Priority Date/Time Associated Diagnosis Comments PATHOLOGY Routine 07/09/2008 10:38 AM CAD LIBRARIAN documented in this encounter Results * PATHOLOGY (07/09/2008 10:38 AM CAD LIBRARIAN) PATHOLOGY/CYT OLOGY REPORT [facility] Anatomic Pathology Dept [address] [place] [address] Patient: MARY ELLEN LOVING Accn No: [id number] Collected: 07/09/2008 10:38:00 AM CYTOLOGY NON-GYNECOLOGIC FINAL REPORT Clinical History Specimen Source: RIGHT THYROID FNA Specimen Description: 8 WET/ 8 DRY Previously Prepared Slide(s) Submitted. Diagnosis COLLOID NODULE Cytotechologist: PKT 07/10/08 Completed by: Zohaib Fan MD (Electronically signed by) 07/10/08 Comment The specimen is hypocellular, consisting of colloid, blood, and a few bland appearing follicular cells in a macrofollicular pattern. No microfollicles or features of papillary carcinoma are seen. The features are consistent with a colloid nodule. Most colloid nodules (approximately 90%) will correspond to nodular goiter (hyperplasia) and a few will correspond to colloid adenoma. Rare cases will correspond to follicular carcinoma or the macrofollicular variant of papillary thyroid carcinoma (approximately 1% or less). 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 However, correlation with clinical features and further follow-up, as clinically indicated, are recommended. INTERFACE SYSTEM 07/09/2008 10:3 8 AM CAD LIBRARIAN us Yang Perez MD PATHOLOGY/CYTOLOGY ORDERABLE S Final Result INTERFACE SYSTEM Refer to clinic/hospital department documented in this encounter Visit Diagnoses Not on filedocumented in this encounter Care Teams Dairy Equipment Mechanic Relationship Specialty Start Date End Date German Skinner MD [address] [facility] [address] [place] [address] PCP - General Family Practice 04/21/19 documented as of this encounter
--- OUTSIDE RECORDS SUMMARY | 2025-04-03 21:48 | XMS_ITS | Encounter Summary ---
Author Organization [facility] Address [address] [facility] [address] Attn: [place] [address] Care Team Providers Care Bone Plant Supervisor Name Role Phone German Skinner MD Primary Care Provider +1 -[phone] Encounter Details Date Type Department Care Team (Late st Contact Info) Description 11/16/2000 Outpatient Historical [place] Laguna MD NO ADDRESS ON FILE Social History Tobacco Use Types Packs/Day Years Used Date Smoking Tobacco: Never Assessed Comments Unknown Sex and Gender Information Value Date Recorded Sex Assigned at Not on file Legal Sex Female 4:12 AM BICYCLE MESSENGER Gender Identity Not on file Sexual Orientation Not on file documented as of this encounter Plan of Treatment Not on file documented as of this encounter Visit Diagnoses Not on filedocumented in this encounter Care Teams Bone Plant Supervisor Relationship Specialty Start Date End Date German Skinner MD [address] [facility] [address] [place] [phone] PCP - General Family Practice 04/21/19 documented as of this encounter
--- OUTSIDE RECORDS SUMMARY | 2025-04-03 21:49 | XMS_ITS | Encounter Summary ---
Author Organization [facility] Address [address] [place] [address] Care Team Providers Care Multi Punch Operator Name Role Phone German Skinner MD Primary Care Provider +1 -[phone] Encounter Details Date Type Department Care Team (Latest Contact Info) Description 02/27/2001 Outpatient Historical [facility] Jun Dao MD NO ADDRESS ON FILE Primary localized osteoarthrosis, lower leg (Primary Dx) Social History Tobacco Use Types Packs/Day Years Used Date Smoking Tobacco: Never Assessed Comments Unknown Sex and Gender Information Value Date Recorded Sex Assigned at Not on file Legal Sex Female 4:12 AM LITHOGRAPHY CONTACT WORKER Gender Identity Not on file Sexual Orientation Not on file documented as of this encounter Plan of Treatment Not on file documented as of this encounter Visit Diagnoses Diagnosis Primary localized osteoarthrosis, lower leg- Primary documented in this encounter Care Teams Multi Punch Operator Relationship Specialty Start Date End Date German Skinner MD [address] [facility] [address] [place] [address] PCP - General Family Practice 04/21/19 documented as of this encounter
--- OUTSIDE RECORDS SUMMARY | 2025-04-03 21:49 | XMS_ITS | Encounter Summary ---
Author Organization [facility] Address [address] [place] [address] Care Team Providers Care Telecom Network Manager Name Role Phone German Skinner MD Primary Care Provider +1 -[phone] Encounter Details Date Type Department Care Team (Latest Contact Info) Description 03/04/2002 Outpatient Historical [facility] STAGECRAFT TEACHER [address] [place] [address] [place] Laguna MD NO ADDRESS ON FILE Gynecologic examination (Primary Dx) Social History Tobacco Use Types Packs/Day Years Used Date Smoking Tobacco: Never Assessed Comments Unknown Sex and Gender Information Value Date Recorded Sex Assigned at Not on file Legal Sex Female 4:12 AM DIESEL TRUCK DRIVER Gender Identity Not on file Sexual Orientation Not on file documented as of this encounter Plan of Treatment Not on file documented as of this encounter Visit Diagnoses Diagnosis Gynecologic examination- Primary Gynecological examination documented in this encounter Care Teams Telecom Network Manager Relationship Specialty Start Date End Date German Skinner MD [address] [phone] PCP - General Family Practice 04/21/19 documented as of this encounter
--- OUTSIDE RECORDS SUMMARY | 2025-04-03 21:49 | XMS_ITS | Encounter Summary ---
Author Organization [facility] Address [address] [place] [address] Care Team Providers Care Flight Agent Name Role Phone German Skinner MD Primary Care Provider +1 -[phone] Encounter Details Date Type Department Care Team (Latest Contact Info) Description 04/19/2006 Outpatient Historical [facility] [address] [facility] [address] [place] [address] Debby Genao MD NO ADDRESS ON FILE Other Abnormal Findings on Radiological Examination of Breast (Primary Dx) Social History Tobacco Use Types Packs/Day Years Used Date Smoking Tobacco: Never Assessed Comments Unknown Sex and Gender Information Value Date Recorded Sex Assigned at Not on file Legal Sex Female 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
--- OUTSIDE RECORDS SUMMARY | 2025-04-03 21:49 | XMS_ITS | Encounter Summary ---
Author Organization [facility] Address [address] [place] [address] Care Team Providers Care Registered Travel Nurse Name Role Phone German Skinner MD Primary Care Provider +1 -[phone] Encounter Details Date Type Department Care Team (Latest Contact Info) Description 04/19/2006 Outpatient Historical [facility] [place] Laguna MD NO ADDRESS ON FILE Other Screening Mammogram (Primary Dx) Social History Tobacco Use Types Packs/Day Years Used Date Smoking Tobacco: Never Assessed Comments Unknown Sex and Gender Information Value Date Recorded Sex Assigned at Not on file Legal Sex Female 4:12 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
--- OUTSIDE RECORDS SUMMARY | 2025-04-03 21:49 | XMS_ITS | Encounter Summary ---
Author Organization [facility] Address [address] [facility] 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
--- OUTSIDE RECORDS SUMMARY | 2025-04-03 21:49 | XMS_ITS | Encounter Summary ---
Author Organization [facility] Address [address] [place] [address] Care Team Providers Care Extension Course Coordinator Name Role Phone German Skinner MD Primary Care Provider +1 -[phone] Encounter Details Date Type Department Care Team (Latest Contact Info) Description 03/10/2002 Outpatient Historical [facility] Magan Ya MD [address] [place] [address] JOINT PAIN-L/LEG (Primary Dx); LOC PRIM OSTEOART-L/LEG Social History Tobacco Use Types Packs/Day Years Used Date Smoking Tobacco: Never Assessed Comments Unknown Sex and Gender Information Value Date Recorded Sex Assigned at Not on file Legal Sex Female 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
--- OUTSIDE RECORDS SUMMARY | 2025-04-03 21:49 | XMS_ITS | Encounter Summary ---
Author Organization [facility] Address [address] [place] [address] Care Team Providers Care Accounts Receivable Manager Name Role Phone German Skinner MD Primary Care Provider +1 -[phone] Encounter Details Date Type Department Care Team (Latest Contact Info) Description 01/13/2005 Outpatient Historical [facility] [place] [address] [address] Nicolás Nur MD [address] [address] HYPERTENSION NOS (Primary Dx); HYPERLIPIDEMIA NEC/NOS; SPINAL STENOSIS NOS Social History Tobacco Use Types Packs/Day Years Used Date Smoking Tobacco: Never Assessed Comments Unknown Sex and Gender Information Value Date Recorded Sex Assigned at Not on file Legal Sex Female 4:12 AM TIME STUDY ENGINEER Gender Identity Not on file Sexual Orientation Not on file documented as of this encounter Plan of Treatment Not on file documented as of this encounter Visit Diagnoses Diagnosis Unspecified essential hypertension- Primary Other and unspecified hyperlipidemia Spinal stenosis, unspecified region other than cervical documented in this encounter Care Teams Accounts Receivable Manager Relationship Specialty Start Date End Date German Skinner MD [address] [address] PCP - General Family Practice 04/21/19 documented as of this encounter
--- OUTSIDE RECORDS SUMMARY | 2025-04-03 21:49 | XMS_ITS | Encounter Summary ---
Author Organization [facility] Address [address] [facility] [address] Rogel: [place] [address] Care Team Providers Care Orthotic Finish Grinding Technician Name Role Phone German Skinner MD Primary Care Provider +1 -[phone] Encounter Details Date Type Department Care Team (Late st Contact Info) Description 03/25/2002 Outpatient Historical Magan Ya MD [address] [place] [address] Social History Tobacco Use Types Packs/Day Years Used Date Smoking Tobacco: Never Assessed Comments Unknown Sex and Gender Information Value Date Recorded Sex Assigned at Not on file Legal Sex Female 4:12 AM RADIOGRAPHER Gender Identity Not on file Sexual Orientation Not on file documented as of this encounter Plan of Treatment Not on file documented as of this encounter Visit Diagnoses Not on filedocumented in this encounter Care Teams Orthotic Finish Grinding Technician Relationship Specialty Start Date End Date German Skinner MD [address] [facility] [place] [address] PCP - General Family Practice 04/21/19 documented as of this encounter
--- OUTSIDE RECORDS SUMMARY | 2025-04-03 21:49 | XMS_ITS | Encounter Summary ---
Author Organization [facility] Address [address] [place] [address] Care Team Providers Care Ticket Writer Name Role Phone German Skinner MD Primary Care Provider +1 -[phone] Encounter Details Date Type Department Care Team (Latest Contact Info) Description 09/15/2002 Outpatient Historical [facility] [address] [address] Nicolás Nur MD [address] [address] HYPERTENSION NOS (Primary Dx); OSTEOARTHROS NOS-UNSPEC Social History Tobacco Use Types Packs/Day Years Used Date Smoking Tobacco: Never Assessed Comments Unknown Sex and Gender Information Value Date Recorded Sex Assigned at Not on file Legal Sex Female 4:12 AM 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
--- OUTSIDE RECORDS SUMMARY | 2025-04-03 21:49 | XMS_ITS | Encounter Summary ---
Author Organization [facility] Address [address] [place] [address] Care Team Providers Care Compositor Apprentice Name Role Phone German Skinner MD Primary Care Provider +1 -[phone] Encounter Details Date Type Department Care Team (Late st Contact Info) Description 04/20/2003 Outpatient Historical [facility] Family Medicine [place] [address] [address] Nicolás Nur MD [address] [address] Social History Tobacco Use Types Packs/Day Years Used Date Smoking Tobacco: Never Assessed Comments Unknown Sex and Gender Information Value Date Recorded Sex Assigned at Not on file Legal Sex Female 4: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
--- OUTSIDE RECORDS SUMMARY | 2025-04-03 21:49 | XMS_ITS | Encounter Summary ---
Author Organization [facility] Address [address] [place] [address] Care Team Providers Care Pilot Boat Operator Name Role Phone German Skinner MD Primary Care Provider +1 -[phone] Encounter Details Date Type Department Care Team (Latest Contact Info) Description 05/27/2001 Outpatient Historical [facility] Magan Ya MD [address] [place] [address] LOC PRIM OSTEOART-L/LEG (Primary Dx) Social History Tobacco Use Types Packs/Day Years Used Date Smoking Tobacco: Never Assessed Comments Unknown Sex and Gender Information Value Date Recorded Sex Assigned at Not on file Legal Sex Female 4:12 AM MECHANOTHERAPIST Gender Identity Not on file Sexual Orientation Not on file documented as of this encounter Plan of Treatment Not on file documented as of this encounter Visit Diagnoses Diagnosis Primary localized osteoarthrosis, lower leg- Primary documented in this encounter Care Teams Pilot Boat Operator Relationship Specialty Start Date End Date German Skinner MD [address] [place] [address] PCP - General Family Practice 04/21/19 documented as of this encounter
--- OUTSIDE RECORDS SUMMARY | 2025-04-03 21:49 | XMS_ITS | Encounter Summary ---
Author Organization [facility] Address [address] [facility] Attn: [place] [address] Care Team Providers Care Director Global Development Name Role Phone German Skinner MD Primary Care Provider +1 -[phone] Encounter Details Date Type Department Care Team (Late st Contact Info) Description 03/04/2002 Outpatient Historical [place] Laguna MD NO ADDRESS ON FILE Social History Tobacco Use Types Packs/Day Years Used Date Smoking Tobacco: Never Assessed Comments Unknown Sex and Gender Information Value Date Recorded Sex Assigned at Not on file Legal Sex Female 4:12 AM GRANITE POLISHER APPRENTICE Gender Identity Not on file Sexual Orientation Not on file documented as of this encounter Plan of Treatment Not on file documented as of this encounter Visit Diagnoses Not on filedocumented in this encounter Care Teams Director Global Development Relationship Specialty Start Date End Date German Skinner MD [address] [facility] [address] [place] [address] PCP - General Family Practice 04/21/19 documented as of this encounter
--- OUTSIDE RECORDS SUMMARY | 2025-04-03 21:49 | XMS_ITS | Encounter Summary ---
Author Organization [facility] Address [address] [place] [address] Care Team Providers Care Floor Finisher Helper Name Role Phone German Skinner MD Primary Care Provider +1 -[phone] Encounter Details Date Type Department Care Team (Late st Contact Info) Description 06/25/2001 Outpatient Historical [facility] [address] [place] [address] Broderick Lee MD NO ADDRESS ON FILE SPINAL STENOSIS-LUMBAR (Primary Dx) Social History Tobacco Use Types Packs/Day Years Used Date Smoking Tobacco: Never Assessed Comments Unknown Sex and Gender Information Value Date Recorded Sex Assigned at Not on file Legal Sex Female 4:12 AM AIRFREIGHT OPERATIONS AGENT Gender Identity Not on file Sexual Orientation Not on file documented as of this encounter Plan of Treatment Not on file documented as of this encounter Visit Diagnoses Diagnosis Spinal stenosis, lumbar region, without neurogenic claudication- Primary documented in this encounter Care Teams Floor Finisher Helper Relationship Specialty Start Date End Date German Skinner MD [address] [phone] PCP - General Family Practice 04/21/19 documented as of this encounter
--- OUTSIDE RECORDS SUMMARY | 2025-04-03 21:49 | XMS_ITS | Encounter Summary ---
Author Organization [facility] Address [address] [place] [address] Care Team Providers Care Cook Starch Name Role Phone German Skinner MD Primary Care Provider +1 -[phone] Encounter Details Date Type Department Care Team (Latest Contact Info) Description 01/14/2003 Outpatient Historical [facility] KEY HOLDER [address] [place] [address] Denver Laguna MD NO ADDRESS ON FILE Gynecologic examination (Primary Dx); Atrophic vaginitis; URINARY FREQUENCY Social History Tobacco Use Types Packs/Day Years Used Date Smoking Tobacco: Never Assessed Comments Unknown Sex and Gender Information Value Date Recorded Sex Assigned at Not on file Legal Sex Female 4:12 AM EEG TECHNOLOGIST Gender Identity Not on file Sexual Orientation Not on file documented as of this encounter Plan of Treatment Not on file documented as of this encounter Visit Diagnoses Diagnosis Gynecologic examination- Primary Gynecological examination Atrophic vaginitis Postmenopausal atrophic vaginitis Urinary frequency documented in this encounter Care Teams Cook Starch Relationship Specialty Start Date End Date German Skinner MD [address] [facility] [address] [place] [address] PCP - General Family Practice 04/21/19 documented as of this encounter
--- OUTSIDE RECORDS SUMMARY | 2025-04-03 21:49 | XMS_ITS | Encounter Summary ---
Author Organization [facility] Address [address] [place] [address] Care Team Providers Care Health Teacher Name Role Phone German Skinner MD Primary Care Provider +1 -[phone] Encounter Details Date Type Department Care Team (Latest Contact Info) Description 10/13/2002 Outpatient Historical [facility] Family Medicine- [address] [place] [address] Leila Leon MD NO ADDRESS ON FILE Dermatitis due to plant (Primary Dx) Social History Tobacco Use Types Packs/Day Years Used Date Smoking Tobacco: Never Assessed Comments Unknown Sex and Gender Information Value Date Recorded Sex Assigned at Not on file Legal Sex Female 4:12 AM RETURNS PROCESSOR Gender Identity Not on file Sexual Orientation Not on file documented as of this encounter Plan of Treatment Not on file documented as of this encounter Visit Diagnoses Diagnosis Dermatitis due to plant- Primary Contact dermatitis and other eczema due to plants (except food) documented in this encounter Care Teams Health Teacher Relationship Specialty Start Date End Date German Skinner MD [address] [place] [address] PCP - General Family Practice 04/21/19 documented as of this encounter
--- OUTSIDE RECORDS SUMMARY | 2025-04-03 21:49 | XMS_ITS | Encounter Summary ---
Author Organization [facility] Address [address] [facility] [address] Rogel: [place] [address] Care Team Providers Care Wood Cutter Name Role Phone German Skinner MD Primary Care Provider +1 -[phone] Encounter Details Date Type Department Care Team (Late st Contact Info) Description 04/02/2002 Inpatient Historical Magan Ya MD [address] [place] [address] Social History Tobacco Use Types Packs/Day Years Used Date Smoking Tobacco: Never Assessed Comments Unknown Sex and Gender Information Value Date Recorded Sex Assigned at Not on file Legal Sex Female 4:12 AM FALL INTERN Gender Identity Not on file Sexual Orientation Not on file documented as of this encounter Plan of Treatment Not on file documented as of this encounter Visit Diagnoses Not on filedocumented in this encounter Care Teams Wood Cutter Relationship Specialty Start Date End Date German Skinner MD [address] [facility] [address] [place] [address] PCP - General Family Practice 04/21/19 documented as of this encounter
--- OUTSIDE RECORDS SUMMARY | 2025-04-03 21:49 | XMS_ITS | Encounter Summary ---
Author Organization [facility] Address [address] [facility] [address] [place]n: Epic Prelude ADT [place] [address] Care Team Providers Care Pizza Hut Team Member Name Role Phone German Skinner MD Primary Care Provider +1 -[phone] Encounter Details Date Type Department Care Team (Late st Contact Info) Description 06/25/2001 Outpatient Historical Broderick Lee MD NO ADDRESS ON FILE Social History Tobacco Use Types Packs/Day Years Used Date Smoking Tobacco: Never Assessed Comments Unknown Sex and Gender Information Value Date Recorded Sex Assigned at Not on file Legal Sex Female 4:12 AM BRAND ADVOCATE Gender Identity Not on file Sexual Orientation Not on file documented as of this encounter Plan of Treatment Not on file documented as of this encounter Visit Diagnoses Not on filedocumented in this encounter Care Teams Pizza Hut Team Member Relationship Specialty Start Date End Date German Skinner MD [address] [facility] [address] [place] [address] PCP - General Family Practice 04/21/19 documented as of this encounter
--- OUTSIDE RECORDS SUMMARY | 2025-04-03 21:49 | XMS_ITS | Encounter Summary ---
Author Organization [facility] Address [address] [place] [address] Care Team Providers Care Supervisor Sample Name Role Phone German Skinner MD Primary Care Provider +1 -[phone] Encounter Details Date Type Department Care Team (Latest Contact Info) Description 08/15/2001 Outpatient Historical [facility] Magan Ya MD [address] [place] [address] LOC PRIM OSTEOART-L/LEG (Primary Dx) Social History Tobacco Use Types Packs/Day Years Used Date Smoking Tobacco: Never Assessed Comments Unknown Sex and Gender Information Value Date Recorded Sex Assigned at Not on file Legal Sex Female 4:12 AM SUPERVISOR EDGING Gender Identity Not on file Sexual Orientation Not on file documented as of this encounter Plan of Treatment Not on file documented as of this encounter Visit Diagnoses Diagnosis Primary localized osteoarthrosis, lower leg- Primary documented in this encounter Care Teams Supervisor Sample Relationship Specialty Start Date End Date German Skinner MD [address] [place] [address] PCP - General Family Practice 04/21/19 documented as of this encounter
--- OUTSIDE RECORDS SUMMARY | 2025-04-03 21:49 | XMS_ITS | Encounter Summary ---
Author Organization [facility] Address [address] [facility] [address] Rogel: [place] [address] Care Team Providers Care Rough Rounder Name Role Phone German Skinner MD Primary Care Provider +1 -[phone] Encounter Details Date Type Department Care Team (Late st Contact Info) Description 06/25/2001 Outpatient Historical Magan Ya MD [address] [place] [address] Social History Tobacco Use Types Packs/Day Years Used Date Smoking Tobacco: Never Assessed Comments Unknown Sex and Gender Information Value Date Recorded Sex Assigned at Not on file Legal Sex Female 4:12 AM LEAD SEWAGE PLANT OPERATOR Gender Identity Not on file Sexual Orientation Not on file documented as of this encounter Plan of Treatment Not on file documented as of this encounter Visit Diagnoses Not on filedocumented in this encounter Care Teams Rough Rounder Relationship Specialty Start Date End Date German Skinner MD [address] [facility] [address] [place] [address] PCP - General Family Practice 04/21/19 documented as of this encounter
--- OUTSIDE RECORDS SUMMARY | 2025-04-03 21:49 | XMS_ITS | Encounter Summary ---
Author Organization [facility] Address [address] [facility] [address] Rogel: [place] [address] Care Team Providers Care Spar Machine Operator Name Role Phone German Skinner MD Primary Care Provider +1 -[phone] Encounter Details Date Type Department Care Team (Late st Contact Info) Description 07/03/2001 Inpatient Historical Magan Ya MD [address] [place] [address] Social History Tobacco Use Types Packs/Day Years Used Date Smoking Tobacco: Never Assessed Comments Unknown Sex and Gender Information Value Date Recorded Sex Assigned at Not on file Legal Sex Female 4:12 AM PM HEAD COOK Gender Identity Not on file Sexual Orientation Not on file documented as of this encounter Plan of Treatment Not on file documented as of this encounter Visit Diagnoses Not on filedocumented in this encounter Care Teams Spar Machine Operator Relationship Specialty Start Date End Date German Skinner MD [address] [facility] [address] [place] [address] PCP - General Family Practice 04/21/19 documented as of this encounter
--- OUTSIDE RECORDS SUMMARY | 2025-04-03 21:49 | XMS_ITS | Encounter Summary ---
Author Organization [facility] Address [address] [place] [address] Care Team Providers Care Mental Health Consultant Name Role Phone German Skinner MD Primary Care Provider +1 -[phone] Encounter Details Date Type Department Care Team (Latest Contact Info) Description 01/14/2003 Outpatient [facility] [address] [place] [address] Denver Laguna MD NO ADDRESS ON FILE SCREENING MAMM-MAILG NEOPL-OTHER (Primary Dx) Social History Tobacco Use Types Packs/Day Years Used Date Smoking Tobacco: Never Assessed Comments Unknown Sex and Gender Information Value Date Recorded Sex Assigned at Not on file Legal Sex Female 4:12 AM CEREAL CHEMIST Gender Identity Not on file Sexual Orientation Not on file documented as of this encounter Plan of Treatment Not on file documented as of this encounter Visit Diagnoses Diagnosis Other screening mammogram- Primary documented in this encounter Care Teams Mental Health Consultant Relationship Specialty Start Date End Date German Skinner MD [address] [facility] [place] [address] PCP - General Family Practice 04/21/19 documented as of this encounter
--- OUTSIDE RECORDS SUMMARY | 2025-04-03 21:49 | XMS_ITS | Encounter Summary ---
Author Organization [facility] Address [address] [place] [address] Care Team Providers Care Sports Medicine Coordinator Name Role Phone German Skinner MD Primary Care Provider +1 -[phone] Encounter Details Date Type Department Care Team (Latest Contact Info) Description 01/31/2006 Outpatient Historical [facility] [place] [address] [address] Leila Leon MD NO ADDRESS ON FILE Mixed Hyperlipidemia (Primary Dx); Obesity, Unspecified; Unspecified Essential Hypertension; Pain in Joint, Pelvic Region and Thigh Social History Tobacco Use Types Packs/Day Years Used Date Smoking Tobacco: Never Assessed Comments Unknown Sex and Gender Information Value Date Recorded Sex Assigned at Not on file Legal Sex Female 4:12 AM COMPUTER PUBLISHER Gender Identity Not on file Sexual Orientation Not on file documented as of this encounter Plan of Treatment Not on file documented as of this encounter Visit Diagnoses Diagnosis Mixed hyperlipidemia- Primary Obesity, unspecified Unspecified essential hypertension Pain in joint, pelvic region and thigh documented in this encounter Care Teams Sports Medicine Coordinator Relationship Specialty Start Date End Date German Skinner MD [address] [address] PCP - General Family Practice 04/21/19 documented as of this encounter
--- OUTSIDE RECORDS SUMMARY | 2025-04-03 21:49 | XMS_ITS | Encounter Summary ---
Author Organization [facility] Address [address] [place] [address] Care Team Providers Care Senior Stack Engineer Name Role Phone German Skinner MD Primary Care Provider +1 -[phone] Reason for Referral * Outpatient Services (Routine) - Closed Specialty Diagnoses / Procedures Referred By Balwinder camarillo Referred To Contact Radiology Diagnoses Visit for screening mammogram Procedures MAMMO DIGITIZED STUDY Toshia Burch FNP [address] [place] [address] Phone: tel: fax: [facility] [address] [place] [address] Phone: tel: fax: Referral ID Status Reason Start Date Expiration Date Visits Re quested Visits Authorized [id number] Closed 11/07/2011 11/06/2012 1 1 Encounter Details Date Type Department Care Team (Late st Contact Info) Description 11/07/2011 Ancillary Orders [facility] Family Medicine [place] [address] [facility] [address] [place] [address] Toshia Burch FNP [address] [place] [address] Visit for screening mammogram Social History Tobacco Use Types Packs/Day Years Used Date Smoking Tobacco: Never Smokeless Tobacco: Never Alcohol Use Standard Drinks/Week Comments No 0 (1 standard drink = 0.6 oz pur e alcohol) Comments No Sex and Gender Information Value Date Recorded Sex Assigned at Not on file Legal Sex Female 4:12 AM FOOD CONCESSION MANAGER Gender Identity Not on file Sexual Orientation Not on file Occupation Industry Job Start Date Job End Date Not on file Not on file Not on file Not on file documented as of this encounter Plan of Treatment Not on file documented as of this encounter Results * MAMMO DIGITIZED STUDY (09/27/2010 10:55 AM FOOD CONCESSION MANAGER) Narrative Lashay Monterroso, RT - 11/07/2011 10:57 AM CDT Order information only. Exam was auto-finalized. Procedure Note Lashay Monterroso, RT - 11/07/2011 Order information only. Exam was auto-finalized. Toshia Burch TIMBER INCISOR OPERATOR DIAGNOSTIC IMAGING ORDERABL ES Final Result documented in this encounter Visit Diagnoses Diagnosis Visit for screening mammogram Other screening mammogram Visit for screening mammogram Other screening mammogram documented in this encounter Care Teams Senior Stack Engineer Relationship Specialty Start Date End Date German Skinner MD [address] [facility] [address] [place] [address] PCP - General Family Practice 04/21/19 documented as of this encounter
--- OUTSIDE RECORDS SUMMARY | 2025-04-03 21:49 | XMS_ITS | Encounter Summary ---
Author Organization [facility] Address [address] [place] [address] Care Team Providers Care Office Support Assistant Name Role Phone German Skinner MD Primary Care Provider +1 -[phone] Encounter Details Date Type Department Care Team (Latest Contact Info) Description 10/02/2003 Outpatient Historical [facility] Family Medicine [place] [address] [address] Nicolás Nur MD [address] [address] HYPERTENSION NOS (Primary Dx); HYPERLIPIDEMIA NEC/NOS Social History Tobacco Use Types Packs/Day Years Used Date Smoking Tobacco: Never Assessed Comments Unknown Sex and Gender Information Value Date Recorded Sex Assigned at Not on file Legal Sex Female 4:12 AM SCIENCE FACULTY MEMBER Gender Identity Not on file Sexual Orientation Not on file documented as of this encounter Plan of Treatment Not on file documented as of this encounter Visit Diagnoses Diagnosis Unspecified essential hypertension- Primary Other and unspecified hyperlipidemia documented in this encounter Care Teams Office Support Assistant Relationship Specialty Start Date End Date German Skinner MD [address] [address] PCP - General Family Practice 04/21/19 documented as of this encounter
--- OUTSIDE RECORDS SUMMARY | 2025-04-03 21:49 | XMS_ITS | Encounter Summary ---
Author Organization [facility] Address [address] [place] [address] Care Team Providers Care Lining Stamper Name Role Phone German Skinner MD Primary Care Provider +1 -[phone] Encounter Details Date Type Department Care Team (Latest Contact Info) Description 02/27/2001 Outpatient Historical [facility] LANGUAGE ARTS TEACHER [address] [place] [address] Denver Laguna MD NO ADDRESS ON FILE Follow-up examination, following unspecified surgery (Primary Dx) Social History Tobacco Use Types Packs/Day Years Used Date Smoking Tobacco: Never Assessed Comments Unknown Sex and Gender Information Value Date Recorded Sex Assigned at Not on file Legal Sex Female 4:12 AM FORECLOSURE SPECIALIST Gender Identity Not on file Sexual Orientation Not on file documented as of this encounter Plan of Treatment Not on file documented as of this encounter Visit Diagnoses Diagnosis Follow-up examination, following unspecified surgery- Primary documented in this encounter Care Teams Lining Stamper Relationship Specialty Start Date End Date German Skinner MD [address] [place] [address] PCP - General Family Practice 04/21/19 documented as of this encounter
--- OUTSIDE RECORDS SUMMARY | 2025-04-03 21:49 | XMS_ITS | Encounter Summary ---
Author Organization [facility] Address [address] [place] [address] Care Team Providers Care Electroformer Name Role Phone German Skinner MD Primary Care Provider +1 -[phone] Encounter Details Date Type Department Care Team (Latest Contact Info) Description 04/20/2003 Outpatient Historical [facility] Medicine [place] [address] [address] Nicolás Nur MD [address] [address] HYPERTENSION NOS (Primary Dx) Social History Tobacco Use Types Packs/Day Years Used Date Smoking Tobacco: Never Assessed Comments Unknown Sex and Gender Information Value Date Recorded Sex Assigned at Not on file Legal Sex Female 4:12 AM CARDIOLOGY CONSULTANT Gender Identity Not on file Sexual Orientation Not on file documented as of this encounter Plan of Treatment Not on file documented as of this encounter Visit Diagnoses Diagnosis Unspecified essential hypertension- Primary documented in this encounter Care Teams Electroformer Relationship Specialty Start Date End Date German Skinner MD [address] [address] PCP - General Family Practice 04/21/19 documented as of this encounter
--- OUTSIDE RECORDS SUMMARY | 2025-04-03 21:49 | XMS_ITS | Encounter Summary ---
Author Organization [facility] Address [address] [place] [address] Care Team Providers Care Manager Local Name Role Phone German Skinner MD Primary Care Provider +1 -[phone] Encounter Details Date Type Department Care Team (Latest Contact Info) Description 02/03/2005 Outpatient Historical [facility] Family Medicine [place] [address] [address] Nicolás Nur MD [address] [address] SCREENING MAL NEOP-RECTUM (Primary Dx) Social History Tobacco Use Types Packs/Day Years Used Date Smoking Tobacco: Never Assessed Comments Unknown Sex and Gender Information Value Date Recorded Sex Assigned at Not on file Legal Sex Female 4:12 AM PHOTO TECH Gender Identity Not on file Sexual Orientation Not on file documented as of this encounter Plan of Treatment Not on file documented as of this encounter Visit Diagnoses Diagnosis Screening for malignant neoplasm of the rectum- Primary documented in this encounter Care Teams Manager Local Relationship Specialty Start Date End Date German Skinner MD [address] [address] PCP - General Family Practice 04/21/19 documented as of this encounter
--- OUTSIDE RECORDS SUMMARY | 2025-04-03 21:49 | XMS_ITS | Encounter Summary ---
Author Organization [facility] Address [address] [place] [address] Care Team Providers Care Bay Stocker Name Role Phone German Skinner MD Primary Care Provider +1 -[phone] Encounter Details Date Type Department Care Team (Latest Contact Info) Description 05/12/2002 Outpatient Historical [facility] Magan Ya MD [address] [place] [address] LOC PRIM OSTEOART-L/LEG (Primary Dx) Social History Tobacco Use Types Packs/Day Years Used Date Smoking Tobacco: Never Assessed Comments Unknown Sex and Gender Information Value Date Recorded Sex Assigned at Not on file Legal Sex Female 4:12 AM SYSTEMS PROGRAMMER ANALYST Gender Identity Not on file Sexual Orientation Not on file documented as of this encounter Plan of Treatment Not on file documented as of this encounter Visit Diagnoses Diagnosis Primary localized osteoarthrosis, lower leg- Primary documented in this encounter Care Teams Bay Stocker Relationship Specialty Start Date End Date German Skinner MD [address] [place] [address] PCP - General Family Practice 04/21/19 documented as of this encounter
--- OUTSIDE RECORDS SUMMARY | 2025-04-03 21:49 | XMS_ITS | Encounter Summary ---
Author Organization [facility] Address [address] [place] [address] Care Team Providers Care Claims Manager Name Role Phone German Skinner MD Primary Care Provider +1 -[phone] Encounter Details Date Type Department Care Team (Late st Contact Info) Description 01/14/2003 Outpatient Historical [facility] SK[place]WAY WORKER [address] [place] [address] Denver Laguna MD NO ADDRESS ON FILE Social History Tobacco Use Types Packs/Day Years Used Date Smoking Tobacco: Never Assessed Comments Unknown Sex and Gender Information Value Date Recorded Sex Assigned at Not on file Legal Sex Female 4:12 AM MATH INTERVENTIONIST Gender Identity Not on file Sexual Orientation Not on file documented as of this encounter Plan of Treatment Not on file documented as of this encounter Visit Diagnoses Not on filedocumented in this encounter Care Teams Claims Manager Relationship Specialty Start Date End Date German Skinner MD [address] [facility] [address] [place] [address] PCP - General Family Practice 04/21/19 documented as of this encounter
--- OUTSIDE RECORDS SUMMARY | 2025-04-03 21:49 | XMS_ITS | Encounter Summary ---
Author Organization [facility] Address [address] [place] [address] Care Team Providers Care Probation Supervisor Name Role Phone German Skinner MD Primary Care Provider [phone] [phone] Reason for Referral * Outpatient Services (Routine) - Closed Specialty Diagnoses / Procedures Referred By Balwinder camarillo Referred To Contact Radiology Diagnoses Visit for screening mammogram Procedures MAMMO DIGITIZED STUDY Toshia Burch FNP [address] [place] [address] Phone: tel: fax: [facility] [address] [place] [address] Phone: tel: fax: Referral ID Status Reason Start Date Expiration Date Visits Re quested Visits Authorized [id number] Closed 11/07/2011 11/06/2012 1 1 Encounter Details Date Type Department Care Team (Late st Contact Info) Description 11/07/2011 Ancillary Orders [facility] Family Medicine [place] [address] [facility] [address] [place] [address] Toshia Burch FNP [address] [place] [address] Visit for screening mammogram Social History Tobacco Use Types Packs/Day Years Used Date Smoking Tobacco: Never Smokeless Tobacco: Never Alcohol Use Standard Drinks/Week Comments No 0 (1 standard drink = 0.6 oz pur e alcohol) Comments No Sex and Gender Information Value Date Recorded Sex Assigned at Not on file Legal Sex Female 4:12 AM RETAIL CENTER RECEPTIONIST Gender Identity Not on file Sexual Orientation Not on file Occupation Industry Job Start Date Job End Date Not on file Not on file Not on file Not on file documented as of this encounter Plan of Treatment Not on file documented as of this encounter Results * MAMMO DIGITIZED STUDY (04/10/2006 11:02 AM CDT) Narrative Lashay Monterroso, RT - 11/07/2011 11:03 AM CDT Order information only. Exam was auto-finalized. Procedure Note Lashay Monterroso, RT - 11/07/2011 Order information only. Exam was auto-finalized. Toshia Burch NURSE LDR DIAGNOSTIC IMAGING ORDERABL ES Final Result documented in this encounter Visit Diagnoses Diagnosis Visit for screening mammogram Other screening mammogram Visit for screening mammogram Other screening mammogram documented in this encounter Care Teams Probation Supervisor Relationship Specialty Start Date End Date German Skinner MD [address] [facility] [address] [place] [phone] PCP - General Family Practice 04/21/19 documented as of this encounter
--- OUTSIDE RECORDS SUMMARY | 2025-04-03 21:49 | XMS_ITS | Encounter Summary ---
Author Organization [facility] Address [address] [place] [address] Care Team Providers Care Solutions Architect Name Role Phone German Skinner MD Primary Care Provider [phone] [phone] Encounter Details Date Type Department Care Team (Latest Contact Info) Description 04/14/2002 Outpatient Historical [facility] Magan Ya MD [address] [place] [address] LOC PRIM OSTEOART-L/LEG (Primary Dx) Social History Tobacco Use Types Packs/Day Years Used Date Smoking Tobacco: Never Assessed Comments Unknown Sex and Gender Information Value Date Recorded Sex Assigned at Not on file Legal Sex Female 4:12 AM HEALTH CLINICIAN Gender Identity Not on file Sexual Orientation Not on file documented as of this encounter Plan of Treatment Not on file documented as of this encounter Visit Diagnoses Diagnosis Primary localized osteoarthrosis, lower leg- Primary documented in this encounter Care Teams Solutions Architect Relationship Specialty Start Date End Date German Skinner MD [address] [place] [address] PCP - General Family Practice 04/21/19 documented as of this encounter
--- OUTSIDE RECORDS SUMMARY | 2025-04-03 21:49 | XMS_ITS | Encounter Summary ---
Author Organization [facility] Address [address] [place] [address] Care Team Providers Care Education Rn Name Role Phone German Skinner MD Primary Care Provider [phone] [phone] Encounter Details Date Type Department Care Team (Late st Contact Info) Description 01/14/2003 Outpatient Historical [facility] [address] [facility] [address] [place] [address] Debby Genao MD NO ADDRESS ON FILE SCREENING MAMM-MAILG NEOPL-OTHER (Primary Dx) Social History Tobacco Use Types Packs/Day Years Used Date Smoking Tobacco: Never Assessed Comments Unknown Sex and Gender Information Value Date Recorded Sex Assigned at Not on file Legal Sex Female 4:12 AM PAINTER HELPER SPRAY Gender Identity Not on file Sexual Orientation Not on file documented as of this encounter Plan of Treatment Not on file documented as of this encounter Visit Diagnoses Diagnosis Other screening mammogram- Primary documented in this encounter Care Teams Education Rn Relationship Specialty Start Date End Date German Skinner MD [address] [facility] [address] [place] [address] PCP - General Family Practice 04/21/19 documented as of this encounter
--- NOTE | 2025-04-03 21:50 | XRR_ITS ---
PROCEDURE INFORMATION: Exam: XR Chest Exam date and time: 04/03/2025 9:54 PM Age: 84 years old Clinical indication: EMS arrival for fall with AMS. TECHNIQUE: Imaging protocol: Radiologic exam of the chest. Views: 1 view. COMPARISON: CR XR chest 1V portable [id number] 06/05/2023 8:45 AM FINDINGS: Lungs: Unremarkable. No consolidation. Pleural spaces: Unremarkable. No pleural effusion. No pneumothorax. Heart/Mediastinum: Cardiomegaly. Bones/joints: Unremarkable. XR/XR chest 1V portable [id number] IMPRESSION: No acute cardiopulmonary findings.
--- OUTSIDE RECORDS SUMMARY | 2025-04-03 21:50 | XMS_ITS | Encounter Summary ---
Author Organization [facility] Address [address] [place] [address] Care Team Providers Care Breast Surgeon Name Role Phone German Skinner MD Primary Care Provider [phone] [phone] Encounter Details Date Type Department Care Team (Latest Contact Info) Description 11/13/2006 Outpatient Historical [facility] ASSURANCE SPECIALIST [place] [address] [facility] [address] [place] [address] Denver Laguna MD NO ADDRESS ON FILE Screening for Malignant Neoplasm of the Cervix (Primary Dx); Special Screening for Malignant Neoplasms, Vagina Social History Tobacco Use Types Packs/Day Years Used Date Smoking Tobacco: Never Assessed Comments Unknown Sex and Gender Information Value Date Recorded Sex Assigned at Not on file Legal Sex Female 4:12 AM PANTRY WORKER Gender Identity Not on file Sexual Orientation Not on file documented as of this encounter Plan of Treatment Not on file documented as of this encounter Visit Diagnoses Diagnosis Screening for malignant neoplasm of the cervix- Primary Special screening for malignant neoplasms, vagina documented in this encounter Care Teams Breast Surgeon Relationship Specialty Start Date End Date German Skinner MD [address] [facility] [address] [place] [address] PCP - General Family Practice 04/21/19 documented as of this encounter
--- OUTSIDE RECORDS SUMMARY | 2025-04-03 21:50 | XMS_ITS | Encounter Summary ---
Author Organization [facility] Address [address] [place] [address] Care Team Providers Care Animal Control Specialist Name Role Phone German Skinner MD Primary Care Provider [phone] [phone] Encounter Details Date Type Department Care Team (Late st Contact Info) Description 10/16/2006 Outpatient Historical [facility] [address] [facility] [address] [place] [address] Debby Genao MD NO ADDRESS ON FILE Other Sign and Symptom in Breast (Primary Dx) Social History Tobacco Use Types Packs/Day Years Used Date Smoking Tobacco: Never Assessed Comments Unknown Sex and Gender Information Value Date Recorded Sex Assigned at Not on file Legal Sex Female 4:12 AM SENIOR FIELD SERVICE ENGINEER Gender Identity Not on file Sexual Orientation Not on file documented as of this encounter Plan of Treatment Not on file documented as of this encounter Visit Diagnoses Diagnosis Other sign and symptom in breast- Primary documented in this encounter Care Teams Animal Control Specialist Relationship Specialty Start Date End Date German Skinner MD [address] [facility] [address] [place] [address] PCP - General Family Practice 04/21/19 documented as of this encounter
--- OUTSIDE RECORDS SUMMARY | 2025-04-03 21:50 | XMS_ITS | Encounter Summary ---
Author Organization [facility] Address [address] [place] [address] Care Team Providers Care Roving Carrier Name Role Phone German Skinner MD Primary Care Provider [phone] [phone] Encounter Details Date Type Department Care Team (Latest Contact Info) Description 11/13/2006 [facility] SEAMLESS TUBE MILL OPERATOR [address] [place] [address] Denver Laguna MD NO ADDRESS ON FILE Screening for Malignant Neoplasm of the Cervix (Primary Dx) Social History Tobacco Use Types Packs/Day Years Used Date Smoking Tobacco: Never Assessed Comments Unknown Sex and Gender Information Value Date Recorded Sex Assigned at Not on file Legal Sex Female 4:12 AM PUBLISHING DIRECTOR Gender Identity Not on file Sexual Orientation Not on file documented as of this encounter Plan of Treatment Not on file documented as of this encounter Visit Diagnoses Diagnosis Screening for malignant neoplasm of the cervix- Primary documented in this encounter Care Teams Roving Carrier Relationship Specialty Start Date End Date German Skinner MD [address] [facility] [address] [place] [address] PCP - General Family Practice 04/21/19 documented as of this encounter
--- OUTSIDE RECORDS SUMMARY | 2025-04-03 21:50 | XMS_ITS | Encounter Summary ---
Author Organization [facility] Address [address] [place] [address] Care Team Providers Care Cone Examiner Name Role Phone German Skinner MD Primary Care Provider [phone] [phone] Encounter Details Date Type Department Care Team (Latest Contact Info) Description 10/16/2006 Outpatient [facility] Breast [facility] [address] [place], [place] [id number] Leila Leon MD NO ADDRESS ON FILE Mammary Duct Ectasia (Primary Dx) Social History Tobacco Use Types Packs/Day Years Used Date Smoking Tobacco: Never Assessed Comments Unknown Sex and Gender Information Value Date Recorded Sex Assigned at Not on file Legal Sex Female 4:12 AM SHELTERED WORKSHOP EXECUTIVE DIRECTOR Gender Identity Not on file Sexual Orientation Not on file documented as of this encounter Plan of Treatment Not on file documented as of this encounter Visit Diagnoses Diagnosis Mammary duct ectasia- Primary documented in this encounter Care Teams Cone Examiner Relationship Specialty Start Date End Date German Skinner MD [address] [facility] [address] [place] [address] PCP - General Family Practice 04/21/19 documented as of this encounter
--- OUTSIDE RECORDS SUMMARY | 2025-04-03 21:50 | XMS_ITS | Encounter Summary ---
Author Organization [facility] Address [address] [place] [address] Care Team Providers Care Rn Midwife Name Role Phone German Skinner MD Primary Care Provider [phone] [phone] Encounter Details Date Type Department Care Team (Latest Contact Info) Description 12/28/2005 Outpatient Historical [facility] Medicine [place] [address] [address] Leila Leon MD NO ADDRESS ON FILE Unspecified Essential Hypertension (Primary Dx); Other and Unspecified Hyperlipidemia; Spinal Stenosis, Unspecified Region Other than Cervical; Family History of Diabetes Mellitus Social History Tobacco Use Types Packs/Day Years Used Date Smoking Tobacco: Never Assessed Comments Unknown Sex and Gender Information Value Date Recorded Sex Assigned at Not on file Legal Sex Female 4:12 AM OCEAN IMPORT REPRESENTATIVE Gender Identity Not on file Sexual Orientation Not on file documented as of this encounter Plan of Treatment Not on file documented as of this encounter Visit Diagnoses Diagnosis Unspecified essential hypertension- Primary Other and unspecified hyperlipidemia Spinal stenosis, unspecified region other than cervical Family history of diabetes mellitus documented in this encounter Care Teams Rn Midwife Relationship Specialty Start Date End Date German Skinner MD [address] [address] PCP - General Family Practice 04/21/19 documented as of this encounter
--- NOTE | 2025-04-03 21:55 | CTR_ITS ---
PROCEDURE INFORMATION: Exam: CT Head Without Contrast Exam date and time: 04/03/2025 10:24 PM Age: 84 years old Clinical indication: Injury or trauma; Blunt trauma (contusions or hematomas); Altered mental status/memory loss; EMS arrival for fall at home. Patient lethargic and non verbal upon exam. ; Additional info: AMS fall TECHNIQUE: Imaging protocol: Computed tomography of the head without contrast. Radiation optimization: All CT scans at this facility use at least one of these dose optimization techniques: automated exposure control; mA and/or kV adjustment per patient size (includes targeted exams where dose is matched to clinical indication); or iterative reconstruction. COMPARISON: CT head wo con* [id number] 06/05/2023 9:04 AM RADIATION DOSE METRICS: Total DLP (mGy-cm): 869.18 FINDINGS: Brain: Parenchymal volume loss with scattered white matter hyperintensities consistent with chronic microvascular ischemic changes. No acute intracranial hemorrhage, mass effect or midline shift. Cerebral ventricles: No ventriculomegaly. Paranasal sinuses: Visualized sinuses are unremarkable. No fluid levels. Mastoid air cells: Visualized mastoid air cells are well aerated. Bones: Unremarkable. No acute fracture. Soft tissues: Unremarkable. CT/CT head wo con* [id number] IMPRESSION: No acute intracranial abnormality.
[2025-04-03 21:58] LABS: Hematocrit 46.0 % (36-47); Hemoglobin 15.30 g/dL (11.27-16.99); Mean Corpuscular HGB Conc 33.3 g/dL (30-55); Mean Corpuscular Hemoglobin 29.3 pg (27-33); Mean Corpuscular Volume 88.1 fl (85-98); Nucleated Red Blood Cells % 0 %; Platelet Count 237 10^3/cmm (157-399); Red Blood Count 5.22 10^6/uL (3.85-5.65); White Blood Count 11.41 10^3/uL (3.29-11.43)
--- NOTE | 2025-04-03 21:59 | ECG_ITS ---
[employer] ( [facility] )[facility] Test Date: 2025-04-03 Pat Name: Tiffanie Rosas Department: Room: Gender: Female Staff Development Nurse: : 1940 Requested By: Donovan Gerardo Order Number: [id number] Beasley MD: Venu Marley M.D. Measurements Intervals [place] Rate: 48 P: -6 CA: 226 QRS: 78 QRSD: 152 T: 62 QT: 488 QTc: 440 Interpretive Statements SINUS BRADYCARDIA WITH FIRST DEGREE AV BLOCK RIGHT BUNDLE BRANCH BLOCK NONSPECIFIC MILD ST DEPRESSION Compared to ECG 06/07/2023 09:39:40 NO SIGNIFICANT CHANGE Electronically Signed On 04-04-2025 20:26:23 CDT by Venu Marley M.D. [email or web address]
[2025-04-03 22:22] LABS: Alanine Aminotransferase 9 U/L (0-33); Albumin Level 3.7 g/dL (3.5-5.2); Alkaline Phosphatase 88 U/L (35-105); Anion Gap 16.7 (5-19); Aspartate Amino Transferase 14 U/L (0-32); Blood Urea Nitrogen 26 mg/dL (8-23); Calcium 9.1 mg/dL (8.5-10.5); Carbon Dioxide 21 mmol/L (22-29); Chloride 105 mmol/L (98-107); Globulin 3.8 g/dL (1.3-4.6); Glucose 221 mg/dL (65-115); Osmolality Calculated 300 mOsm/kg (285-295); Potassium 3.7 mmol/L (3.5-5.1); Sodium 139 mmol/L (136-145); Total Protein 7.5 g/dL (6.6-8.7)
[2025-04-03 22:23] LABS: Creatinine Clr Calc Pharmacy 38.1801
--- NOTE | 2025-04-03 22:23 | W.ED.WEAKNES ---
HPI - Weakness General: Chief complaint: Weakness Stated complaint: LOW O2 HOSPICE PATIENT Time Seen by Provider: 04/03/25 21:33 History of Present Illness: 84-year-old female hospice patient. She presents with worsening mental status and generalized weakness. No documented fever. Evidently she had a low oxygen saturation at home. Her son was concerned and wanted her evaluated. He tells the patient's nurse that she fell at home and hit her head also. Related Data Home Medications ?Medication ?Instructions ?Recorded ?Confirmed potassium chloride 20 mEq 20 meq PO BEDTIME 03/25/23 06/21/23 tablet,extended release(part/cryst) 4-Function Brain Support 2 tab PO QAM 06/05/23 06/21/23 Brain Performance Support 2 tab PO QAM 06/05/23 06/21/23 Folate 333 mg PO QAM 06/05/23 06/21/23 L-Arginine 500mg 1,000 mg PO QAM 06/05/23 06/21/23 Mushroom Complex 6,200 mg PO QAM 06/05/23 06/21/23 calcium 600 mg (as 2 tab PO QAM 06/05/23 06/21/23 carbonate)-vitamin D3 5 mcg (200 unit) tablet cranberry extract 500 mg tablet 500 mg PO QAM 06/05/23 06/21/23 furosemide 40 mg tablet 40 mg PO QAM 06/05/23 06/21/23 garlic 1,000 mg capsule 1,000 mg PO QAM 06/05/23 06/21/23 green tea leaf extract 500 mg 500 mg PO QAM 06/05/23 06/21/23 capsule levocarnitine 500 mg tablet 500 mg PO QAM 06/05/23 06/21/23 (L-Carnitine) nystatin 100,000 unit/gram topical 1 applic topical . DIRECTED 06/05/23 06/21/23 cream omega-3 fatty acids 1,000 mg PO QAM 06/05/23 06/21/23 Previous Rx's ?Medication ?Instructions ?Recorded aspirin 81 mg capsule 81 mg PO DAILY #30 caps 06/08/23 pantoprazole 40 mg tablet,delayed 40 mg PO DAILY #30 tabs 06/08/23 release Allergies Allergy/AdvReac Type Severity Reaction Status Date / Time acetaminophen (From Leonard) Allergy ADR-Drowsy Verified 11/30/23 10:17 hydrocodone (From Panlor AdvReac Mild ADR-Drowsy Verified 06/21/23 10:17 (hydrocodone-acetamin)) PFSH ED PFSH: Medical History Dementia Aortic stenosis Severe per last echocardiogram 02/11 GERD (gastroesophageal reflux disease) Swelling of lower leg Vomiting Hyponatremia RBBB CHF (congestive heart failure), NYHA class III Leg swelling Hypertension Surgical History Hx of hysterectomy Hx of knee surgery bilateral knee replacements Hx of eye surgery lenses placed in bilat eyes Hx of section Social History Smoking and tobacco/nicotine status: never used tobacco/nicotine Alcohol intake: never Physical Exam Const: EXAM LIMITATIONS: altered mental status GENERAL APPEARANCE: in distress, disheveled and lethargic ORIENTATION/CONSCIOUSNESS: Yes awake, Yes confused and Yes lethargic HENMT: COMMON NORMALS: normocephalic and atraumatic HEAD & SCALP: normocephalic and atraumatic FACE & SINUS: face symmetric Eye: COMMON NORMALS: Equal, round and reactive pupils present PUPIL: Yes Equal, round and reactive pupils present Resp: EFFORT & INSPECTION: Yes symmetric chest movement and Yes decreased respiratory effort AUSCULTATION: diminished lung sounds Cardio: RATE: bradycardic RHYTHM: abnormal rhythm irregularly irregular GI: COMMON NORMALS: Soft to palpation PALPATION: Yes Soft to palpation Neuro: HAMMAD COMA SCALE: document GCS findings Revillo coma scale eye opening: Spontaneous Revillo coma scale verbal response: Words Hammad coma scale motor response: Localising Revillo coma scale total score: 12 SENSORIUM/ORIENTATION: Yes lethargic Course Vital Signs: Vital signs: Vital Signs Temperature 97.7 F 04/03/25 21:36 Pulse Rate 48 L 04/03/25 22:49 Respiratory Rate 18 04/03/25 22:49 Blood Pressure 120/62 04/03/25 22:49 Pulse Oximetry 97 04/03/25 22:49 Oxygen Delivery Me thod Nasal Cannula 04/03/25 22:49 Oxygen Flow Rate 2 04/03/25 22:49 MDM - Weakness Medical Decision Making Brady was placed. She is quite bradycardic at times with heart rates in the 40s. Her blood pressure has remained stable. She is on 2 L of oxygen, she was mildly hypoxic. She is afebrile. Her CBC is normal. Her creatinine is 1.1. Her CRP is only minimally elevated at 15. Urinalysis is pending. Head CT is pending. Chest x-ray is pending. Head CT and chest x-ray are nonacute. CBC is normal. Creatinine is 1.1. Blood sugar is 221. She is having episodes of significant bradycardia down to the high 30s low 40s on the monitor. She also experiences short bursts of tachycardia. She does take metoprolol. Blood pressure has been stable so far. Currently blood pressure is 120/62 with a heart rate of 48. Spoke to the hospitalist. The hospitalist had a long discussion with this patient's son. He wishes her to be a DNR, but also has mentioned pacemaker placement. She will be admitted to the ICU. She will be made a DNR, but atropine will be placed at the bedside for prolonged bradycardia with hypotension. Given her confusion, frail state, her prognosis is poor long-term. Lab Data 04/03/25 21:39 04/03/25 21:39 Radiology Impressions Chest X-Ray 04/03/25 21:50 IMPRESSION: No acute cardiopulmonary findings. Head CT 04/03/25 21:55 IMPRESSION: No acute intracranial abnormality. Laboratory Results WBC 11.41 10^3/uL (3.29-11.43) 04/03/25 21:39 RBC 5.22 10^6/uL (3.85-5.65) 04/03/25 21:39 Hgb 15.30 g/dL (11.27-16.99) 04/03/25 21:39 Hct 46.0 % (36-47) 04/03/25 21:39 MCV 88.1 fl (85-98) 04/03/25 21:39 MCH 29.3 pg (27-33) 04/03/25 21:39 MCHC 33.3 g/dL (30-55) 04/03/25 21:39 RDW 13.8 % (12.1-15.1) 04/03/25 21:39 Plt Count 237 10^3/cmm (157-399) 04/03/25 21:39 MPV 9.3 fL (7.4-10.4) 04/03/25 21:39 Neut % (Auto) 67.4 % 04/03/25 21:39 Lymph % (Auto) 24.0 % 04/03/25 21:39 [place] % (Auto) 6.8 % 04/03/25 21:39 Eos % (Auto) 0.6 % 04/03/25 21:39 Baso % (Auto) 0.7 % 04/03/25 21:39 Neut # (Auto) 7.68 10^3/uL (1.8-7.7) 04/03/25 21:39 Lymph # (Auto) 2.7 10^3/uL (0.8-4.8) 04/03/25 21:39 [place] # (Auto) 0.8 10^3/uL (0.2-0.9) 04/03/25 21:39 Eos # (Auto) 0.1 10^3/uL (0.0-0.8) 04/03/25 21:39 Baso # (Auto) 0.1 10^3/uL (0.0-0.1) 04/03/25 21:39 Nucleated RBC % (auto) 0 % 04/03/25 21: Nucleated RBCs # 0.0 /100WBC 04/03/25 21:39 Specimen Type Arterial 04/03/25 21:50 Sample Site Radial, right 04/03/25 21:50 ABG pH 7.40 (7.35-7.45) 04/03/25 21:50 ABG pCO2 42.7 mmHg (35-45) 04/03/25 21:50 ABG pO2 135.0 mmHg (80.0-100.0) H 04/03/25 21:50 ABG HCO3 26.1 mmol/L (22-26) H 04/03/25 21:50 ABG Base Excess 0.9 mmol/L (-2.0-2.0) 04/03/25 21:50 Deion Test Pos 04/03/25 21:50 Hematocrit 48.7 % (37-47) H 04/03/25 21:50 O2 Delivery Device Nc 04/03/25 21:50 O2 Liters/Min 2.0 % 04/03/25 21:50 Jawbone Puller ID [email or web address] 04/03/25 21:50 Sodium 139 mmol/L (136-145) 04/03/25 21:39 Potassium 3.7 mmol/L (3.5-5.1) 04/03/25 21:39 Chloride 105 mmol/L (98-107) 04/03/25 21:39 Carbon Dioxide 21 mmol/L (22-29) L 04/03/25 21:39 Anion Gap 16.7 (5-19) 04/03/25 21:39 BUN 26 mg/dL (8-23) H 04/03/25 21:39 Creatinine 1.1 mg/dL (0.5-0.9) H 04/03/25 21:39 GFR Calculation Not Reportable 04/03/25 21:39 Glucose 221 mg/dL (65-115) H 04/03/25 21:39 Calculated Osmolality 300 mOsm/kg (285-295) H 04/03/25 21:39 Lactic Acid 1.2 mmol/L (0.5-2.2) 04/03/25 22:19 Calcium 9.1 mg/dL (8.5-10.5) 04/03/25 21:39 Total Bilirubin 1.0 mg/dL (0.15-1.2) 04/03/25 21:39 AST 14 U/L (0-32) 04/03/25 21:39 ALT 9 U/L (0-33) 04/03/25 21:39 Alkaline Phosphatase 88 U/L (35-105) 04/03/25 21:39 C-Reactive Protein 14.8 mg/L (0.0-4.9) H 04/03/25 21:39 Total Protein 7.5 g/dL (6.6-8.7) 04/03/25 21:39 Albumin 3.7 g/dL (3.5-5.2) 04/03/25 21:39 Globulin 3.8 g/dL (1.3-4.6) 04/03/25 21:39 Urine Color Dark yellow (Yellow) A 04/03/25 22:49 Urine Appearance Turbid (CLEAR) A 04/03/25 22:49 Urine pH 5.5 (5-7) 04/03/25 22:49 Ur Specific [place] 1.021 (1.005-1.030) 04/03/25 22:49 Urine Protein 2+ (Negative) A 04/03/25 22:49 Urine Glucose (UA) Negative (Normal) 04/03/25 22:49 Urine Ketones Trace (Negative) 04/03/25:49 Urine Blood 2+ (Negative) A 04/03/25 22:49 Urine Nitrate Positive (Negative) A 04/03/25 22:49 Urine Bilirubin Negative (Negative) 04/03/25 22:49 Urine Urobilinogen 1.0 mg/dL (Negative) 04/03/25 22: Ur Leukocyte Esterase 2+ (Negative) A 04/03/25 22:49 Urine RBC 6-10 /hpf (0-2) 04/03/25 22:49 Urine WBC >100 /hpf (0-5) H 04/03/25 22:49 Ur Squamous Epith Cells 0-5 /hpf (0-5) 04/03/25 22:49 Amorphous Sediment Not Reportable 04/03/25 22:49 Urine Bacteria 4+ /hpf (NONE) H 04/03/25 22:49 Hyaline Casts 41.35 /lpf 04/03/25 22:49 All radiology interpretation(s) finalized by discharge Discharge Plan Discharge Condition: Stable Coding Level of Care Code ED Hourly Associate for Candis Parra
[2025-04-03 22:48] LABS: Lactic Sepsis W/Reflex 1.2 mmol/L (0.5-2.2)
[2025-04-03 22:49] VITALS: BP 120/62; PULSE 48; RESP 18; O2SAT 97
[2025-04-03 22:49] LABS: ABG PCO2 42.7 mmHg (35-45); ABG PH Result 7.40 (7.35-7.45); Arterial Blood Gas Hematocrit 48.7 % (37-47); Blood Gas Allen Test Pos; Blood Gas LPM 2.0 %; Blood Gas Sample Site Radial, right; Blood Gas Sample Type Arterial; HCO3 ABG 26.1 mmol/L (22-26); PO2 ABG 135.0 mmHg (80.0-100.0)
[2025-04-03 23:26] LABS: Glucose Urine UA Negative (Normal); Nitrate Urine Positive (Negative); Specific Gravity, Urine 1.021 (1.005-1.030)
[2025-04-03 23:31] LABS: Add Urine Microscopic? YES; Universal Test for UA Present (0)
[2025-04-03 23:45] LABS: UA Slide Review UA Slide Review Perf
--- NOTE | 2025-04-04 00:04 | PM.HP ---
Providers/Chief Complaint Admitting Physician: RADHA BARRETO--DO Primary Care Provider: Chelle Dumont Chief Complaint: LOW O2 HOSPICE PATIENT History of Present Illness Tiffanie Rosas is a 84 year old female with end-stage dementia and medical history significant for atrial fibrillation, aortic stenosis, CHF, hypertension who also had been on hospice since August to date of this year 2024. Patient had been off not on hospice and was on hospice last year or 2 January when they had the patient off of the hospice and unable to put her back on hospice in August this year. Patient is having much cognitive decline with other comorbid conditions that made her appropriate for hospice and the son Mr. Rosas is the person that manages her healthcare. The son brought the patient to the hospital because she was found to be very weak today to we are she is slumped and fell to the ground out of being very weak. Son called the ambulance and they brought the patient to the emergency room with a heart rate of 30.. She was found to be dehydrated ED attending started patient on some fluid. I was consulted to see patient for admission. Dr. Conteh had had word with the son who knows that the patient is hospice and could not be very clear as to what he really wants other than he wants the mother be stable to come home. Dr. Conteh emergency room attending had asked if the heart was to stop what was he the son wants. The son answered done bring Back. CODE STATUS is allow natural I have seen and evaluated patient patient is lying supine in bed not really conversant eyes closed I spent 45 minutes with this son try to get some direction. Patient was having tacky bradycardia syndrome heart rate had gotten better since in the emergency room. The bradycardia stayed 40s to 50s and a tacky arrhythmia goes as high as 160s erratically. But patient had not had heart rate in the 30s while in the emergency room. The son in the same breath had said it would like the mother to have a pacemaker if that we will keep heart stable to come home and wondering who is going to pay for that because Medicare might not pay he said. Was not sure who could be putting a pacemaker on a hospice patient. I discussed the plan with the son that I will consult social workers/case management for further discharge planning and helping in family conference on the patient care. Son was also will be consulting cardiology. I have consulted Dr. Naidu who will be seeing the patient this morning to have conversation with the son. CT of the brain was unremarkable for any acute process chest x-ray was clean no cardiopulmonary disease and EKG as captured was sinus rhythm in the 60s. CBC unremarkable chemistry unremarkable except for slight dehydration with BUN/creatinine ratio. C-reactive protein elevated at 14.8 lactate was normal is turned out abnormality is urinalysis with white cells greater than 100. I have given ceftriaxone 2 g IV now and then daily. Patient afebrile and no white count Review of Systems Narrative: System review we are limited patient cannot verbalize much. Medications/Allergies Home Medications ?Medication ?Instructions ?Recorded ?Confirmed ?Last Taken ?Type potassium chloride 20 mEq 20 meq PO BEDTIME 03/25/23 06/21/23 Unknown History tablet,extended release(part/cryst) 4-Function Brain Support 2 tab PO QAM 06/05/23 06/21/23 Unknown History Brain Performance Support 2 tab PO QAM 06/05/23 06/21/23 Unknown History Folate 333 mg PO QAM 06/05/23 06/21/23 Unknown History L-Arginine 500mg 1,000 mg PO QAM 06/05/23 06/21/23 Unknown History Mushroom Complex 6,200 mg PO QAM 06/05/23 06/21/23 Unknown History calcium 600 mg (as 2 tab PO QAM 06/05/23 06/21/23 Unknown History carbonate)-vitamin D3 5 mcg (200 unit) tablet cranberry extract 500 mg tablet 500 mg PO QAM 06/05/23 06/21/23 Unknown History furosemide 40 mg tablet 40 mg PO QAM 06/05/23 06/21/23 Unknown History garlic 1,000 mg capsule 1,000 mg PO QAM 06/05/23 06/21/23 Unknown History green tea leaf extract 500 mg 500 mg PO QAM 06/05/23 06/21/23 Unknown History capsule levocarnitine 500 mg tablet 500 mg PO QAM 06/05/23 06/21/23 Unknown History (L-Carnitine) nystatin 100,000 unit/gram topical 1 applic topical . DIRECTED 06/05/23 06/21/23 Unknown History cream omega-3 fatty acids 1,000 mg PO QAM 06/05/23 06/21/23 Unknown History aspirin 81 mg capsule 81 mg PO DAILY #30 caps 06/08/23 06/21/23 Unknown Rx pantoprazole 40 mg tablet,delayed 40 mg PO DAILY #30 tabs 06/08/23 06/21/23 Unknown Rx release Allergies Allergy/AdvReac Type Severity Reaction Status Date / Time acetaminophen (From [place]) Allergy ADR-Drowsy Verified 06/21/23 10:17 hydrocodone (From [facility] AdvReac Mild ADR-Drowsy Verified 06/21/23 10:17 (hydrocodone-acetamin)) PFSH Acute PFSH: Medical History Dementia Aortic stenosis Severe per last echocardiogram 02/11 GERD (gastroesophageal reflux disease) Swelling of lower leg Vomiting Hyponatremia RBBB CHF (congestive heart failure), NYHA class III Leg swelling Hypertension Surgical History Hx of hysterectomy Hx of knee surgery bilateral knee replacements Hx of eye surgery lenses placed in bilat eyes Hx of section Social History Smoking and tobacco/nicotine status: never used tobacco/nicotine Alcohol intake: never Vitals/I&O/Wt Last Vital Signs Temp 97.7 F 04/03/25 21:36 Pulse 48 L 04/03/25 22:49 Resp 18 04/03/25 22:49 BP 120/62 04/03/25 22:49 Pulse Ox 97 04/03/25 22:49 O2 Del Method Nasal Cannula 04/03/25 22:49 O2 Flow Rate 2 04/03/25 22:49 04/03/25 04/03/25 04/04/25 14:59 22:59 06:59 Intake Total 1000 / 1000 Balance 1000 / 1000 Weight last 48 hrs Weight 76.204 kg Physical Exam Narrative: Generally patient is not speaking eyes closed and resting supine in bed. Son at the bedside. Patient is weak appearing HEENT normocephalic atraumatic neck neck is supple cardiovascular heart rate is regular lungs are pretty much clear abdomen soft nontender nondistended unremarkable extremities are intact no edema has good pulses neurology has no focality lab studies lab studies reviewed and noted and significant for urinary tract infection Data 04/03/25 21:39 04/03/25 21:39 A&P Assessment and plan 1. Thang-tachy syndrome: 2. Acute cystitis: 3. Dehydration: 4. Altered mental status: 5. Weakness: 6. Weakness acquired in ICU: 7. SVT (supraventricular tachycardia): 8. Hospice care patient: Plan: #1 UTI with altered mentation - Admit to stepdown unit - IV antibiotics with 2 g of IV ceftriaxone now and daily - Gentle hydration normal saline at 75 cc/h - UTI leading to altered mental status #2 Elevated C-reactive protein due to underlining inflammation from infection - Treat underlying infection - Repeat for interval change after 24 hours #3 Bradycardiatacky syndrome - This arrhythmia could be triggered by underlining infection aside from a cardiac source - Patient had not gone to a heart rate below 40 while in the emergency room and this is reassuring - Continue to treat acute cystitis with antibiotics - Gentle hydration at this time - Lactate is normal but C-reactive protein is elevated - Cardiology on case mainly to address the dynamics with the son regarding plan of care #4 Dehydration - Gentle rehydration - Follow IV fluid with interval changes in electrolytes #5 Weakness/myalgia - Treat underlying infection and continue IV hydration - PT OT ordered #6 Bust of SVT nonsustained - Monitor as we treat infection #7 GI and DVT prophylaxis in place PDMP PDMP Reviewed: Last Reviewed 04/04/25 00:44 by Radha Barreto MD Attestations Medical Necessity Statement*: Patient with multiple acute illness requiring inpatient care for at least 2 midnights Coding Level of Care Code 83446 Diagnoses Thang-tachy syndrome I49.5 Acute cystitis N30.00 Dehydration E86.0 Altered mental status R41.82 Weakness R53.1 Weakness acquired in ICU R53.1 SVT (supraventricular tachycardia) I47.10 Hospice care patient Z51.5 Time Spent (min) 60
[2025-04-04 01:08] VITALS: BP 111/54; PULSE 43; RESP 16; O2SAT 96
[2025-04-04] MEDS: cefTRIAXone 2,000 mg SDV 2000 MG IVP (01:09)
[2025-04-04 02:26] VITALS: BP 141/90; PULSE 51; RESP 16; O2SAT 96
== END 2025-04-04 02:29 | disposition home or self-care (01) ==
PROVIDERS: Emergency Provider Emergency Medicine; PCP Physician Assistant
DX: R53.1 Weakness (principal); R06.02 Shortness of breath; R41.82 Altered mental status, unspecified; R00.1 Bradycardia, unspecified; R00.0 Tachycardia, unspecified; I95.9 Hypotension, unspecified; I11.0 Hypertensive heart disease with heart failure; I50.9 Heart failure, unspecified
CPT/HCPCS: 36415; 51702; 70450; 71045; 80053; 81001; 82803; 83605; 85025; 86140; 87077; 87086; 87186; 93005; 96361; 96374; 99285; J0696; J7030